=== PATIENT | female | born 1935 | race Caucasian/White ===

== ENCOUNTER → 2016-09-28 | Outpatient (CLI) | payer MEDICARE, OTHER ==
[2016-09-28 11:06] LABS: ABSOLUTE BASOPHILS # (AUTO) 0.1 10^3/uL (0.0-0.2); ABSOLUTE EOSINOPHILS # (AUTO) 0.7 10^3/uL (0.0-0.6); ABSOLUTE LYMPHOCYTES (AUTO) 2.1 10^3/uL (0.5-4.7); ABSOLUTE MONOCYTES (AUTO) 0.6 10^3/uL (0.1-1.4); ABSOLUTE NEUT (AUTO) 4.2 10^3/uL (1.7-8.2); EOSINOPHILS % (AUTO) 8.9 % (0-6); HEMATOCRIT 37.6 % (36.0-47.0); HEMOGLOBIN 12.8 g/dL (12.0-15.5); HGB HCT DIFFERENCE 0.8; LYMPHOCYTES % (AUTO) 27.1 % (13-45); MEAN CORPUSCULAR HEMOGLOBIN 31.3 pg (27.0-33.4); MEAN CORPUSCULAR HGB CONC 33.9 g/dL (32.0-36.0); MEAN CORPUSCULAR VOLUME 92 fl (80-97); MONOCYTES % (AUTO) 8.1 % (3-13); RED BLOOD COUNT 4.08 10^6/uL (3.72-5.28); RED CELL DISTRIBUTION WIDTH 14.9 % (11.5-14.0); SEGMENTED NEUTROPHILS % (AUTO) 54.9 % (42-78); WHITE BLOOD COUNT 7.6 10^3/uL (4.0-10.5)
[2016-09-28 11:26] LABS: ALANINE AMINOTRANSFERASE 31 U/L (9-52); ALKALINE PHOSPHATASE 56 U/L (38-126); ANION GAP 9 (5-19); ASPARTATE AMINO TRANSFERASE 28 U/L (14-36); BILIRUBIN,DIRECT 0.5 mg/dL (0.0-0.4); BILIRUBIN,TOTAL 0.8 mg/dL (0.2-1.3); BLOOD UREA NITROGEN 56 mg/dL (7-20); CALCIUM 9.8 mg/dL (8.4-10.2); CARBON DIOXIDE 36 mmol/L (22-30); CHLORIDE 95 mmol/L (98-107); CHOLESTEROL 173.18 mg/dL (0-200); CREATININE RESULT 2.46 mg/dL (0.52-1.25); Direct HDL 55 mg/dL (>40); GLUCOSE 118 mg/dL (75-110); SODIUM 140.2 mmol/L (137-145); TOTAL PROTEIN 6.9 g/dL (6.3-8.2); TRIGLYCERIDES 157 mg/dL (<150)
[2016-09-28 11:36] LABS: DIRECT LDL 69 mg/dL (<100)
[2016-09-28 11:41] LABS: VLDL CHOLESTEROL 31.4 mg/dL (10-31)
== END ==
LOC: OD 09:32
PROVIDERS: ATTEND Physician Assistant
DX: E11.22 Type 2 diabetes mellitus with diabetic chronic kidney disease (principal); I12.9 Hypertensive chronic kidney disease with stage 1 through stage 4 chronic kidney disease, or unspecified chronic kidney disease; N18.9 Chronic kidney disease, unspecified; E78.5 Hyperlipidemia, unspecified
CPT/HCPCS: 36415; 80053; 80061; 83036; 85025

== ENCOUNTER → 2016-12-29 | Outpatient (CLI) | payer MEDICARE, MEDICAID, OTHER ==
--- NOTE | 2016-12-29 16:56 | RADIOLOGY REPORT (SQ) ---
EXAM DESCRIPTION: MRI HEAD WITHOUT COMPLETED DATE/TIME: 12/29/2016 4:29 pm REASON FOR STUDY: HEADACHE,DIPLOPIA R51 HEADACHE H53.2 DIPLOPIA COMPARISON: None. TECHNIQUE: Multiplanar imaging includes non-contrasted T1, T2, FLAIR, and diffusion with ADC map seq uences. Images stored on PACS. LIMITATIONS: Motion. FINDINGS: ANATOMY: No anomalies. Normal vascular flow voids. Pituitary fossa normal. CSF SPACES: Atrophy induced prominence of ventricles and CSF spaces. CEREBRUM: High signal intensity lesions scattered throughout the white matter on FLAIR imaging with d istribution suggesting micro-vascular ischemic changes. No evidence of hemorrhage, mass, or extraaxi al fluid collection. POSTERIOR FOSSA: No signal alteration. No hemorrhage. No edema, masses or mass effect. Internal missy tory canals, cerebello-pontine angles, mastoids normal. DIFFUSION IMAGING: Negative for acute or sub-acute infarction. ORBITS: No masses. Globes normal. PARANASAL SINUSES: No fluid levels. Mucosa normal. OTHER: No other significant finding. IMPRESSION: Chronic ischemic changes. EVIDENCE OF ACUTE STROKE: NO. TECHNICAL DOCUMENTATION: JOB ID: [id number] [employer]- All Rights Reserved
== END ==
LOC: RAD 15:30
PROVIDERS: ATTEND Physician Assistant
DX: R51 Headache (principal); H53.2 Diplopia
CPT/HCPCS: 70551

== ENCOUNTER 2017-01-03 13:38 | Emergency (ER) | payer MEDICARE, MEDICAID, OTHER ==
[2017-01-03] MEDS ORDERED: NORMAL SALINE 1000 ML 1,000 ML IV ONE (14:01)
[2017-01-03] MEDS ORDERED: KETOROLAC TROMETHAMINE INJ/PF 30 MG/1 ML SDV IV ONE (14:01)
[2017-01-03] MEDS ORDERED: DIPHENHYDRAMINE HCL 50 MG/ML VIAL IV ONE (14:01)
[2017-01-03] MEDS ORDERED: PROCHLORPERAZINE EDISYLATE INJ 10 MG/2 ML VIAL IV ONE (14:01)
--- NOTE | 2017-01-03 14:02 | ER Document Report ---
ED Medical Screen (RME) - General Chief Complaint: Headache Stated Complaint: HEADACHE Time Seen by Provider: 01/03/17 14:01 Mode of Arrival: Wheelchair Information source: Patient, Relative Notes: 81-year-old female history of migraine headaches presents with complaints of a headache that has been on approximately for a few weeks. Patient had an MRI performed on results reviewed by myself notes no acute abnormality. Patient denies any fevers or chills admits to pain behind her right eye I have greeted and performed a rapid initial assessment of this patient. A comprehensive ED assessment and evaluation of the patient, analysis of test results and completion of the medical decision making process will be conducted by additional ED providers. PHYSICAL EXAMINATION: GENERAL: Well-appearing, well-nourished and in no acute distress. HEAD: Atraumatic, normocephalic. EYES: Pupils equal round extraocular movements intact, conjunctiva are normal. ENT: Nares patent NECK: Normal range of motion LUNGS: No respiratory distress Musculoskeletal: Normal range of motion NEUROLOGICAL: Normal speech, normal gait. PSYCH: Normal mood, normal affect. SKIN: Warm, Dry, normal turgor, no rashes or lesions noted. TRAVEL OUTSIDE OF THE [place] IN LAST 30 DAYS: No - Related Data Allergies/Adverse Reactions: codeine [Codeine] Allergy (Verified 01/03/17 13:45) Past Medical History - Social History Chew tobacco use (# tins/day): No Frequency of alcohol use: None Drug Abuse: None - Past Medical History Cardiac Medical History: Reports: Hx Congestive Heart Failure, Hx Coronary Artery Disease, Hx Heart Attack, Hx Hypercholesterolemia, Hx Hypertension Neurological Medical History: Reports: Hx Cerebrovascular Accident Endocrine Medical History: Reports: Hx Diabetes Mellitus Type 2 Renal/ Medical History: Denies: Hx Peritoneal Dialysis GI Medical History: Reports: Hx Gastroesophageal Reflux Disease Musculoskeltal Medical History: Reports Hx Gout Psychiatric Medical History: Denies: Hx Depression Past Surgical History: Reports: Hx Appendectomy, Hx Hysterectomy, Other - Shoulder replacement, bladder surgery
--- NOTE | 2017-01-03 15:42 | ER Document Report ---
ED Eye Complaint - General Mode of Arrival: Wheelchair Information source: Patient TRAVEL OUTSIDE OF THE [place] IN LAST 30 DAYS: No - HPI Onset: Just prior to arrival Eye location: Right Injury: No <MONES BIRMINGHAM - Last Filed: 01/03/17 19:56> <PAYALROBE JEAN - Last Filed: 01/03/17 21:54> - General Chief Complaint: Headache Stated Complaint: HEADACHE Time Seen by Provider: 01/03/17 14:01 Notes: Patient is an 81-year-old female who presents to the emergency department today with complaints of right eye pain with some associated headache. Patient states she has had this right eye pain with associated double vision for approximately 1 week. Patient states her vision is normal in her left eye. Patient had an outpatient CT and MRI done within the last week, both of which were normal. (MONSE BIRMINGHAM) - Related Data Allergies/Adverse Reactions: codeine [Codeine] Allergy (Verified 01/03/17 13:45) Past Medical History - General Information source: Patient, Relative - Social History Smoking Status: Never Smoker Cigarette use (# per day): No Chew tobacco use (# tins/day): No Frequency of alcohol use: None Drug Abuse: None Lives with: Family Family History: Reviewed & Not Pertinent Patient has suicidal ideation: No Patient has homicidal ideation: No - Past Medical History Cardiac Medical History: Reports: Hx Congestive Heart Failure, Hx Coronary Artery Disease, Hx Heart Attack, Hx Hypercholesterolemia, Hx Hypertension Neurological Medical History: Reports: Hx Cerebrovascular Accident Endocrine Medical History: Reports: Hx Diabetes Mellitus Type 2 GI Medical History: Reports: Hx Gastroesophageal Reflux Disease Musculoskeltal Medical History: Reports Hx Gout Past Surgical History: Reports: Hx Appendectomy, Hx Hysterectomy, Other - Shoulder replacement, bladder surgery <MONSE BIRMINGHAM - Last Filed: 01/03/17 19:56> Review of Systems - Review of Systems Constitutional: No symptoms reported EENT: See HPI, Eye pain - right Cardiovascular: No symptoms reported Respiratory: No symptoms reported Gastrointestinal: No symptoms reported Genitourinary: No symptoms reported Female Genitourinary: No symptoms reported Musculoskeletal: No symptoms reported Skin: No symptoms reported Hematologic/Lymphatic: No symptoms reported Neurological/Psychological: See HPI, Headaches -: Yes All other systems reviewed and negative <MONSE BIRMINGHAM - Last Filed: 01/03/17 19:56> Physical Exam - HEENT Right intraocular pressure: 14 Left intraocular pressure: 16 <MONSE BIRMINGHAM - Last Filed: 01/03/17 19:56> <ROBE MOE - Last Filed: 01/03/17 21:54> - Vital signs Vitals: Temp Pulse BP Pulse Ox 97.5 F 50 L 166/72 H 94 01/03/17 13:44 01/03/17 13:44 01/03/17 13:44 01/03/17 13:44 - Notes Notes: Physical Exam: General: Alert, appears uncomfortable. HEENT: Normocephalic. Atraumatic. PERRL. Extraocular movements intact. Oropharynx clear. Tenderness with palpation of the right eyeball through the eyelid. No acute findings on funduscopic exam Neck: Supple. Non-tender. Respiratory: No respiratory distress. Clear and equal breath sounds bilaterally. Cardiovascular: Regular rate and rhythm. Abdominal: Normal Inspection. Non-tender. No distension. Normal Bowel Sounds. Back: Non-tender. No deformity or step off. Extremities: Moves all four extremities. Upper extremities: Normal inspection. Normal ROM. Lower extremities: Normal inspection. No edema. Normal ROM. Neurological: Normal cognition. AAOx4. Normal speech. Psychological: Normal affect. Normal Mood. Skin: Warm. Dry. Normal color. (MONSE BIRMINGHAM) Course - Laboratory Result Diagrams: 01/03/17 14:15 01/03/17 15:31 - Consults Ophthalmology Time consulted: 15:47 <MONSE BIRMINGHAM - Last Filed: 01/03/17 19:56> - Laboratory Result Diagrams: 01/03/17 14:15 01/03/17 15:31 - Diagnostic Test Radiology reviewed: Reports reviewed <ROBE MOE - Last Filed: 01/03/17 21:54> - Re-evaluation Re-evalutation: 01/03/17 Patient with no acute findings on blood work. Patient with normal outpatient MRI yesterday. Patient is complaining more of eye pain and blurred vision in her right eye than of headache. I have had a difficult time doing a funduscopic and intraocular pressures the patient has a difficult time cooperating with both of these. However, there does not appear to be an acute severe elevation of her intraocular pressure or any acute findings on funduscopic exam. The patient was discussed with . Javier will see her in the morning at 8 AM. This is been discussed with the patient and her family. Patient has no further headache at this time after being given medications to treat this. She will be discharged home and is to return if she has any worsening or concerning symptoms. Patient and family understand and agree with this plan. Stable for discharge home. (ROBE MOE) - Vital Signs Vital signs: Temp Pulse Resp BP Pulse Ox 97.2 F 50 L 16 147/60 H 98 01/03/17 18:31 01/03/17 13:44 01/03/17 18:31 01/03/17 18:31 01/03/17 18:31 - Laboratory Laboratory results interpreted by me: 01/03/17 01/03/17 14:15 15:31 Hct 35.8 L Sodium 135.1 L Chloride 91 L Carbon Dioxide 33 H BUN 53 H Creatinine 2.38 H Est GFR ( Amer) 24 L Est GFR (Non-Af Amer) 20 L Glucose 111 H Discharge <MONSE BIRMINGHAM - Last Filed: 01/03/17 19:56> <ROBE MOE - Last Filed: 01/03/17 21:54> - Discharge Clinical Impression: Pain, eye, right Headache Qualifiers: Headache type: tension-type Headache chronicity pattern: acute headache Intractability: not intractable Qualified Code(s): G44.209 - Tension-type headache, unspecified, not intractable Condition: Stable Disposition: HOME, SELF-CARE Instructions: Headache ([facility]) Additional Instructions: Please follow-up with the roastmaster tomorrow regarding your eye pain and vision changes. Please return if you have any further concerns. Referrals: VICENTE SCHULZ PA [Primary Care Provider] - Follow up as needed ALLIE CEDEÑO MD [ACTIVE STAFF] - 01/04/17 8:00 am Scribe Attestation: 01/03/17 21:54 I personally performed the services described in the documentation, reviewed and edited the documentation which was dictated to the scribe in my presence, and it accurately records my words and actions. (ROBE MOE) Scribe Documentation - Scribe Written by Scribe:: Helen Schmitz, 01/03/2017 1556 acting as scribe for :: Butch <MONSE BIRMINGHAM - Last Filed: 01/03/17 19:56>
[2017-01-03] MEDS ORDERED: TETRACAINE HCL 0.5% OPH SOLN 2 ML OD ONE (15:46)
[2017-01-03 15:56] LABS: ALANINE AMINOTRANSFERASE 32 U/L (9-52); ALKALINE PHOSPHATASE 64 U/L (38-126); ANION GAP 11 (5-19); ASPARTATE AMINO TRANSFERASE 24 U/L (14-36); BILIRUBIN,DIRECT 0.4 mg/dL (0.0-0.4); BILIRUBIN,TOTAL 0.6 mg/dL (0.2-1.3); BLOOD UREA NITROGEN 53 mg/dL (7-20); CALCIUM 9.7 mg/dL (8.4-10.2); CARBON DIOXIDE 33 mmol/L (22-30); CHLORIDE 91 mmol/L (98-107); CREATININE RESULT 2.38 mg/dL (0.52-1.25); GLUCOSE 111 mg/dL (75-110); POTASSIUM 3.6 mmol/L (3.6-5.0); SODIUM 135.1 mmol/L (137-145)
[2017-01-03 16:45] LABS: ABSOLUTE BASOPHILS # (AUTO) 0.1 10^3/uL (0.0-0.2); ABSOLUTE EOSINOPHILS # (AUTO) 0.4 10^3/uL (0.0-0.6); ABSOLUTE LYMPHOCYTES (AUTO) 1.5 10^3/uL (0.5-4.7); ABSOLUTE MONOCYTES (AUTO) 0.7 10^3/uL (0.1-1.4); ABSOLUTE NEUT (AUTO) 4.2 10^3/uL (1.7-8.2); BASOPHILS % (AUTO) 0.9 % (0-2); EOSINOPHILS % (AUTO) 5.3 % (0-6); HEMATOCRIT 35.8 % (36.0-47.0); HEMOGLOBIN 12.3 g/dL (12.0-15.5); HGB HCT DIFFERENCE 1.1; LYMPHOCYTES % (AUTO) 21.3 % (13-45); MEAN CORPUSCULAR HEMOGLOBIN 31.7 pg (27.0-33.4); MEAN CORPUSCULAR HGB CONC 34.3 g/dL (32.0-36.0); MEAN CORPUSCULAR VOLUME 93 fl (80-97); MONOCYTES % (AUTO) 10.4 % (3-13); RED BLOOD COUNT 3.87 10^6/uL (3.72-5.28); SEGMENTED NEUTROPHILS % (AUTO) 62.1 % (42-78); WHITE BLOOD COUNT 6.8 10^3/uL (4.0-10.5)
[2017-01-03] MEDS ORDERED: ONDANSETRON ODT 4 MG TAB (6 TAB/DSPK) PO PRN (17:52)
[2017-01-03 18:47] VITALS: BP 147/60
== END 2017-01-03 18:47 | disposition home or self-care (01) ==
LOC: ER 13:38
DX: G44.209 Tension-type headache, unspecified, not intractable (principal); H57.11 Ocular pain, right eye; E11.9 Type 2 diabetes mellitus without complications; I50.9 Heart failure, unspecified; I25.10 Atherosclerotic heart disease of native coronary artery without angina pectoris; E78.00 Pure hypercholesterolemia, unspecified; I11.0 Hypertensive heart disease with heart failure; Z86.73 Personal history of transient ischemic attack (TIA), and cerebral infarction without residual deficits; I25.2 Old myocardial infarction; Z90.710 Acquired absence of both cervix and uterus; Z88.6 Allergy status to analgesic agent
CPT/HCPCS: 99284; 96374; 96375; 36415; 84443; 85025; 80053; J1200; J1885; J0780; J7030; A9270

== ENCOUNTER 2017-01-11 18:47 | Emergency (ER) | payer MEDICARE, MEDICAID, OTHER ==
--- NOTE | 2017-01-11 22:44 | RADIOLOGY REPORT (SQ) ---
EXAM DESCRIPTION: CHEST SINGLE VIEW COMPLETED DATE/TIME: 01/11/2017 10:19 pm REASON FOR STUDY: CP COMPARISON: 08/12/2014 EXAM PARAMETERS: NUMBER OF VIEWS: One view. TECHNIQUE: Single frontal radiographic view of the chest acquired. RADIATION DOSE: NA LIMITATIONS: None. FINDINGS: LUNGS AND PLEURA: No consolidation, masses or pneumothorax. No pleural effusion. MEDIASTINUM AND HILAR STRUCTURES: Stable. HEART AND VASCULAR STRUCTURES: Stable. BONES: No acute findings. HARDWARE: None in the chest. OTHER: No other significant finding. IMPRESSION: NO ACUTE RADIOGRAPHIC FINDING IN THE CHEST. TECHNICAL DOCUMENTATION: JOB ID: [id number]
--- NOTE | 2017-01-11 22:52 | RADIOLOGY REPORT (SQ) ---
EXAM DESCRIPTION: CT HEAD WITHOUT COMPLETED DATE/TIME: 01/11/2017 10:21 pm REASON FOR STUDY: HEADACHE/BLOOD THINNERS COMPARISON: MRI 12/29/2016 TECHNIQUE: Axial images acquired through the brain without intravenous contrast. Images reviewed wi th bone, brain and subdural windows. Images stored on PACS. All CT scanners at this facility use dose modulation, iterative reconstruction, and/or weight based d osing when appropriate to reduce radiation dose to as low as reasonably achievable (ALARA). [facility]: Dose Right [facility]: CareDose [facility]: Dose Right [facility]: Teradose 4D [facility]: [employer] RADIATION DOSE: Up-to-date CT equipment and radiation dose reduction techniques were employed. CTDIv ol: 64.6 mGy. DLP: 1163 mGy-cm.mGy. LIMITATIONS: None. FINDINGS: VENTRICLES: Prominent. CEREBRUM: No masses. No hemorrhage. No midline shift. Areas of low density in the white matter mos t likely due to chronic micro-vascular ischemic change. No evidence for acute infarction. CEREBELLUM: No masses. No hemorrhage. No alteration of density. No evidence for acute infarction. EXTRAAXIAL SPACES: Age-related involutional change. No fluid collections. No masses. ORBITS AND GLOBE: No intra- or extraconal masses. Normal contour of globe without masses. CALVARIUM: No fracture. PARANASAL SINUSES: No fluid or mucosal thickening. SOFT TISSUES: No mass or hematoma. OTHER: No other significant finding. IMPRESSION: No intracranial hemorrhage. TECHNICAL DOCUMENTATION: JOB ID: [id number] Quality ID # [id number]: Final reports with documentation of one or more dose reduction techniques (e.g., Au tomated exposure control, adjustment of the mA and/or kV according to patient size, use of iterative reconstruction technique) 2010 [employer]- All Rights Reserved
[2017-01-12] MEDS ORDERED: KETOROLAC TROMETHAMINE INJ/PF 30 MG/1 ML SDV IV ONE (00:53)
[2017-01-12] MEDS ORDERED: PROCHLORPERAZINE EDISYLATE INJ 10 MG/2 ML VIAL IV ONE (00:53)
[2017-01-12] MEDS ORDERED: DIPHENHYDRAMINE HCL 50 MG/ML VIAL IV ONE (00:53)
--- NOTE | 2017-01-12 00:56 | ER Document Report ---
ED General - General Chief Complaint: Headache >24 hrs old Stated Complaint: SHORTNESS OF BREATH Time Seen by Provider: 01/12/17 00:30 Mode of Arrival: Ambulatory Information source: Patient, Relative TRAVEL OUTSIDE OF THE [place] IN LAST 30 DAYS: No - HPI Patient complains to provider of: Headache, shortness of breath Onset/Duration: Persistent Quality of pain: Achy, Pressure Severity: Moderate Pain Level: 3 Associated symptoms: Shortness of breath Exacerbated by: Denies Relieved by: Denies Similar symptoms previously: Yes Recently seen / treated by doctor: Yes Notes: Patient is an 81-year-old female presenting to the emergency room complaining of headache that has been going on for 3 weeks, it is mainly on the right side of the face and she has double vision in the right eye as well, she has been seen in this emergency room, by her primary care provider and by an horticulture instructor for this complaint, has had numerous tests and evaluations but has not been placed on any new medications for symptom control, she also reports being seen by a primary care provider earlier today, having a chest x- ray performed and was told that she has a lot of fluid in her lungs or around her heart and was told to go to the emergency room immediately, she does complaining some worsening shortness of breath over the past few weeks, she has a history of congestive heart failure, denies any lower extremity edema, no chest pain, she does have a nonproductive cough, denies fever - Related Data Allergies/Adverse Reactions: codeine [Codeine] Allergy (Verified 01/11/17 18:55) Past Medical History - General Information source: Patient, Relative - Social History Smoking Status: Never Smoker Frequency of alcohol use: None Drug Abuse: None Family History: Reviewed & Not Pertinent Patient has suicidal ideation: No Patient has homicidal ideation: No - Past Medical History Cardiac Medical History: Reports: Hx Congestive Heart Failure, Hx Coronary Artery Disease, Hx Heart Attack, Hx Hypercholesterolemia, Hx Hypertension Neurological Medical History: Reports: Hx Cerebrovascular Accident Endocrine Medical History: Reports: Hx Diabetes Mellitus Type 2 Renal/ Medical History: Denies: Hx Peritoneal Dialysis GI Medical History: Reports: Hx Gastroesophageal Reflux Disease Musculoskeltal Medical History: Reports Hx Gout Psychiatric Medical History: Denies: Hx Depression Past Surgical History: Reports: Hx Appendectomy, Hx Hysterectomy, Other - Shoulder replacement, bladder surgery Review of Systems - Review of Systems Constitutional: No symptoms reported EENT: No symptoms reported Cardiovascular: Dyspnea Respiratory: Short of breath Gastrointestinal: No symptoms reported Genitourinary: No symptoms reported Female Genitourinary: No symptoms reported Musculoskeletal: No symptoms reported Skin: No symptoms reported Hematologic/Lymphatic: No symptoms reported Neurological/Psychological: Headaches -: Yes All other systems reviewed and negative Physical Exam - Vital signs Vitals: Temp Pulse Resp BP Pulse Ox 97.7 F 70 20 133/72 H 96 01/11/17 18:57 01/11/17 18:57 01/11/17 18:57 01/11/17 18:57 01/11/17 18:57 Interpretation: Normal - General General appearance: Appears well, Alert - HEENT Head: Normocephalic, Atraumatic Eyes: Normal Pupils: PERRL - Respiratory Respiratory status: No respiratory distress Chest status: Nontender Breath sounds: Normal Chest palpation: Normal - Cardiovascular Rhythm: Regular Heart sounds: Normal auscultation Murmur: No - Abdominal Inspection: Normal Distension: No distension Bowel sounds: Normal Tenderness: Nontender Organomegaly: No organomegaly - Back Back: Normal, Nontender - Extremities General upper extremity: Normal inspection, Nontender, Normal color, Normal ROM , Normal temperature General lower extremity: Normal inspection, Nontender, Normal color, Normal ROM , Normal temperature, Normal weight bearing. No: Pastora's sign - Neurological Neuro grossly intact: Yes Cognition: Normal Orientation: AAOx4 [place] Coma Scale Eye Opening: Spontaneous [place] Coma Scale Verbal: Oriented [place] Coma Scale Motor: Obeys Commands [place] Coma Scale Total: 15 Speech: Normal Motor strength normal: LUE, RUE, LLE, RLE Sensory: Normal - Psychological Associated symptoms: Normal affect, Normal mood - Skin Skin Temperature: Warm Skin Moisture: Dry Skin Color: Normal Course - Re-evaluation Re-evalutation: 01/12/17 03:11 Patient sleeping comfortably, easily aroused, reports that her headache is resolved and she is feeling much better, lab and imaging findings were discussed with patient and family members at bedside which are fairly unremarkable except for continued renal insufficiency and mildly elevated BNP, patient is already on Bumex for this, she was advised to continue this medication, follow-up with her primary care provider and specialists as scheduled or return if symptoms worsen, patient and family members acknowledge understanding and agreement with this plan - Vital Signs Vital signs: Temp Pulse Resp BP Pulse Ox 97.7 F 70 20 133/72 H 96 01/11/17 18:57 01/11/17 18:57 01/11/17 18:57 01/11/17 18:57 01/11/17 18:57 - Laboratory Result Diagrams: 01/12/17 01:00 01/12/17 01:00 Laboratory results interpreted by me: 01/12/17 01/12/17 01:00 01:00 Chloride 94 L Carbon Dioxide 32 H BUN 43 H Creatinine 2.36 H Est GFR ( Amer) 24 L Est GFR (Non-Af Amer) 20 L Glucose 118 H Calcium 11.0 H Direct Bilirubin 0.5 H NT-Pro-B Natriuret Pep 3570 H - Diagnostic Test Radiology reviewed: Image reviewed, Reports reviewed - EKG Interpretation by Me EKG shows normal: Sinus rhythm Rate: Bradycardia When compared to previous EKG there are: No significant change Discharge - Discharge Clinical Impression: Congestive heart failure (CHF) Qualifiers: Congestive heart failure type: unspecified congestive heart failure type Congestive heart failure chronicity: chronic Qualified Code(s): I50.9 - Heart failure, unspecified Headache Qualifiers: Headache type: unspecified Headache chronicity pattern: chronic headache Intractability: not intractable Qualified Code(s): R51 - Headache Condition: Stable Disposition: HOME, SELF-CARE Instructions: Headache ([facility]), Congestive Heart Failure ([facility]) Additional Instructions: Follow up with your primary care provider and specialist in one to 2 days. Return to the emergency room immediately if symptoms worsen or any additional concerns. Prescriptions: Diphenhydramine HCl [Benadryl 25 Mg Capsule] 25 mg PO Q6 #30 capsule Prochlorperazine Maleate [Compazine 10 mg Tablet] 10 mg PO ASDIR PRN #20 tablet PRN Reason: Tramadol HCl/Acetaminophen [Ultracet 37.5 mg/325 mg Tablet] 1 each PO Q6 #20 tablet Referrals: VICENTE SCHULZ PA [Primary Care Provider] - Follow up as needed
[2017-01-12 01:13] LABS: ABSOLUTE BASOPHILS # (AUTO) 0.1 10^3/uL (0.0-0.2); ABSOLUTE EOSINOPHILS # (AUTO) 0.4 10^3/uL (0.0-0.6); ABSOLUTE LYMPHOCYTES (AUTO) 1.6 10^3/uL (0.5-4.7); ABSOLUTE MONOCYTES (AUTO) 0.9 10^3/uL (0.1-1.4); ABSOLUTE NEUT (AUTO) 6.6 10^3/uL (1.7-8.2); EOSINOPHILS % (AUTO) 3.8 % (0-6); HEMATOCRIT 40.8 % (36.0-47.0); HEMOGLOBIN 13.8 g/dL (12.0-15.5); HGB HCT DIFFERENCE 0.6; LYMPHOCYTES % (AUTO) 17.2 % (13-45); MEAN CORPUSCULAR HEMOGLOBIN 31.7 pg (27.0-33.4); MEAN CORPUSCULAR HGB CONC 33.8 g/dL (32.0-36.0); MEAN CORPUSCULAR VOLUME 94 fl (80-97); MONOCYTES % (AUTO) 9.4 % (3-13); RED BLOOD COUNT 4.36 10^6/uL (3.72-5.28); RED CELL DISTRIBUTION WIDTH 13.8 % (11.5-14.0); SEGMENTED NEUTROPHILS % (AUTO) 68.6 % (42-78); WHITE BLOOD COUNT 9.6 10^3/uL (4.0-10.5)
[2017-01-12 01:28] LABS: PROTHROMBIN TIME 12.7 SEC (11.4-15.4)
[2017-01-12 02:06] LABS: CREATINE KINASE MB 0.53 ng/mL (<4.55)
[2017-01-12 02:07] LABS: ALANINE AMINOTRANSFERASE 28 U/L (9-52); ALBUMIN 4.5 g/dL (3.5-5.0); ALKALINE PHOSPHATASE 89 U/L (38-126); ANION GAP 12 (5-19); ASPARTATE AMINO TRANSFERASE 23 U/L (14-36); BILIRUBIN,DIRECT 0.5 mg/dL (0.0-0.4); BILIRUBIN,TOTAL 0.7 mg/dL (0.2-1.3); BLOOD UREA NITROGEN 43 mg/dL (7-20); CARBON DIOXIDE 32 mmol/L (22-30); CHLORIDE 94 mmol/L (98-107); CREATINE KINASE 59 U/L (30-135); CREATININE RESULT 2.36 mg/dL (0.52-1.25); GLUCOSE 118 mg/dL (75-110); POTASSIUM 4.5 mmol/L (3.6-5.0); SODIUM 137.5 mmol/L (137-145); TOTAL PROTEIN 7.6 g/dL (6.3-8.2)
[2017-01-12 02:08] LABS: TROPONIN I < 0.012 ng/mL
[2017-01-12 03:31] VITALS: BP 118/88
--- NOTE | 2017-01-12 21:34 | EKG REPORT ---
SEVERITY:- OTHERWISE NORMAL ECG - SINUS RHYTHM LEFT AXIS DEVIATION : Confirmed by: Allen Foss 12-Jan-2017 21:33:21
== END 2017-01-12 03:29 | disposition home or self-care (01) ==
LOC: ER 18:47
DX: R51 Headache (principal); H53.2 Diplopia; I11.0 Hypertensive heart disease with heart failure; I50.9 Heart failure, unspecified; N28.9 Disorder of kidney and ureter, unspecified; Z79.899 Other long term (current) drug therapy; R00.1 Bradycardia, unspecified; I25.10 Atherosclerotic heart disease of native coronary artery without angina pectoris; R06.02 Shortness of breath; R05 Cough; E11.9 Type 2 diabetes mellitus without complications; Z88.5 Allergy status to narcotic agent; Z86.73 Personal history of transient ischemic attack (TIA), and cerebral infarction without residual deficits
CPT/HCPCS: 93005; 99284; 96374; 96375; 36415; 82553; 82550; 85025; 85610; 80053; 84484; 83880; 71010; 70450; 93010; J1200; J1885; J0780

== ENCOUNTER 2017-01-16 16:00 | Emergency (ER) | payer MEDICARE, MEDICAID, OTHER ==
--- NOTE | 2017-01-16 16:29 | ER Document Report ---
ED Medical Screen (RME) - General Chief Complaint: S/S of Possible Stroke Stated Complaint: POSSIBLE STROKE Time Seen by Provider: 01/16/17 16:27 Notes: Patient presents with 2 weeks of progressive right facial symptoms. She started off with bad right-sided headaches over the right temporal artery that have increased. She first noted vision loss and did see an ent consultant but family is unsure of the diagnosis that was given. Patient was also seen in the emergency department and had CT scan and has had an MRI both of these showed no evidence of any acute pathology. Patient began to have weakness of the right eyelid next and today patient now has drooping of the right side of the mouth and right lower face. Patient apparently woke up this morning with the right lower facial weakness. TRAVEL OUTSIDE OF THE [place] IN LAST 30 DAYS: No - Related Data Allergies/Adverse Reactions: codeine [Codeine] Allergy (Verified 01/16/17 16:05) Past Medical History - Past Medical History Cardiac Medical History: Reports: Hx Congestive Heart Failure, Hx Coronary Artery Disease, Hx Heart Attack, Hx Hypercholesterolemia, Hx Hypertension Neurological Medical History: Reports: Hx Cerebrovascular Accident Endocrine Medical History: Reports: Hx Diabetes Mellitus Type 2 Renal/ Medical History: Denies: Hx Peritoneal Dialysis GI Medical History: Reports: Hx Gastroesophageal Reflux Disease Musculoskeltal Medical History: Reports Hx Gout Psychiatric Medical History: Denies: Hx Depression Past Surgical History: Reports: Hx Appendectomy, Hx Hysterectomy, Other - Shoulder replacement, bladder surgery
--- NOTE | 2017-01-16 16:58 | RADIOLOGY REPORT (SQ) ---
EXAM DESCRIPTION: CT HEAD WITHOUT COMPLETED DATE/TIME: 01/16/2017 4:49 pm REASON FOR STUDY: right facial weakness COMPARISON: None. TECHNIQUE: Axial images acquired through the brain without intravenous contrast. Images reviewed wi th bone, brain and subdural windows. Images stored on PACS. All CT scanners at this facility use dose modulation, iterative reconstruction, and/or weight based d osing when appropriate to reduce radiation dose to as low as reasonably achievable (ALARA). [facility]: Dose Right [facility]: CareDose [facility]: Dose Right [facility]: Teradose 4D [facility]: [employer] RADIATION DOSE: Up-to-date CT equipment and radiation dose reduction techniques were employed. CTDIv ol: 64.6 mGy. DLP: 1163 mGy-cm.mGy. LIMITATIONS: None. FINDINGS: VENTRICLES: Prominent. CEREBRUM: No masses. No hemorrhage. No midline shift. Areas of low density in the white matter mos t likely due to chronic micro-vascular ischemic change. No evidence for acute infarction. CEREBELLUM: No masses. No hemorrhage. No alteration of density. No evidence for acute infarction. EXTRAAXIAL SPACES: Age-related involutional change. No fluid collections. No masses. ORBITS AND GLOBE: No intra- or extraconal masses. Normal contour of globe without masses. CALVARIUM: No fracture. PARANASAL SINUSES: No fluid or mucosal thickening. SOFT TISSUES: No mass or hematoma. OTHER: No other significant finding. IMPRESSION: CHRONIC CHANGES OF ATROPHY AND MICROVASCULAR ISCHEMIA. NO ACUTE PROCESS. TECHNICAL DOCUMENTATION: JOB ID: [id number] Quality ID # [id number]: Final reports with documentation of one or more dose reduction techniques (e.g., Au tomated exposure control, adjustment of the mA and/or kV according to patient size, use of iterative reconstruction technique) 2010 [email or web address]- All Rights Reserved
[2017-01-16 17:17] LABS: ABSOLUTE BASOPHILS # (AUTO) 0.1 10^3/uL (0.0-0.2); ABSOLUTE EOSINOPHILS # (AUTO) 0.3 10^3/uL (0.0-0.6); ABSOLUTE LYMPHOCYTES (AUTO) 1.1 10^3/uL (0.5-4.7); ABSOLUTE MONOCYTES (AUTO) 0.8 10^3/uL (0.1-1.4); ABSOLUTE NEUT (AUTO) 5.6 10^3/uL (1.7-8.2); BASOPHILS % (AUTO) 0.9 % (0-2); EOSINOPHILS % (AUTO) 4.2 % (0-6); HEMATOCRIT 37.9 % (36.0-47.0); HEMOGLOBIN 12.9 g/dL (12.0-15.5); HGB HCT DIFFERENCE 0.8; MEAN CORPUSCULAR HGB CONC 34.1 g/dL (32.0-36.0); MEAN CORPUSCULAR VOLUME 94 fl (80-97); MONOCYTES % (AUTO) 10.5 % (3-13); RED BLOOD COUNT 4.04 10^6/uL (3.72-5.28); RED CELL DISTRIBUTION WIDTH 13.7 % (11.5-14.0); SEGMENTED NEUTROPHILS % (AUTO) 70.4 % (42-78); WHITE BLOOD COUNT 7.9 10^3/uL (4.0-10.5)
--- NOTE | 2017-01-16 17:22 | ER Document Report ---
HPI - HPI Patient complains to provider of: right facial droop Onset: Other Onset/Duration: Waxing and waning Quality of pain: Burning Severity: Mild Pain Level: Denies Exacerbated by: Denies Relieved by: Denies Similar symptoms previously: Yes Recently seen / treated by doctor: Yes Notes: Patient is a 81-year-old female who presents today for continuing right facial changes, right facial pain, speech changes. Patient has had these symptoms intermittently for the last several weeks. Patient has been seen by this facility as well as a primary care provider. Patient has had a negative head CT and negative brain MRI done last couple weeks. Today, patient's family believes the patient's symptoms have worsened. No focal neurologic weakness. No syncope. No chest pain or shortness of breath. Primarily the issues are right facial droop with right facial pain and slurred speech. - DERM Skin Color: Normal Past Medical History - General Information source: Patient, Relative - Social History Smoking Status: Never Smoker Family History: Reviewed & Not Pertinent - Past Medical History Cardiac Medical History: Reports: Hx Congestive Heart Failure, Hx Coronary Artery Disease, Hx Heart Attack, Hx Hypercholesterolemia, Hx Hypertension Neurological Medical History: Reports: Hx Cerebrovascular Accident Endocrine Medical History: Reports: Hx Diabetes Mellitus Type 2 Renal/ Medical History: Denies: Hx Peritoneal Dialysis GI Medical History: Reports: Hx Gastroesophageal Reflux Disease Musculoskeltal Medical History: Reports Hx Gout Psychiatric Medical History: Denies: Hx Depression Past Surgical History: Reports: Hx Appendectomy, Hx Hysterectomy, Other - Shoulder replacement, bladder surgery Vertical Provider Document - CONSTITUTIONAL Agree With Documented VS: Yes Exam Limitations: No Limitations General Appearance: WD/WN, No Apparent Distress - INFECTION CONTROL TRAVEL OUTSIDE OF THE [place] 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 01/16/17 17:42 Symptoms are most consistent with Chaudhry's palsy. Will give dose of acyclovir and prednisone here. Results of been discussed with patient and family bedside. Patient has a neurology appointment already scheduled for January 20. - Laboratory Result Diagrams: 01/16/17 17:05 01/16/17 17:05 - Diagnostic Test Radiology reviewed: Reports reviewed Radiology results interpreted by me: 01/16/17 17:[address] read is no acute changes per radiologist Discharge - Discharge Clinical Impression: Chaudhry's palsy Condition: Good Disposition: HOME, SELF-CARE Instructions: Chaudhry's Palsy ([facility]) Additional Instructions: Follow-up with your scheduled neurology appointment on January 20, follow-up with your primary care provider, return to the emergency department if worse or for any other problems. Prescriptions: RX: Acyclovir 800 mg PO Q4H #35 tab RX: Prednisone 40 mg PO DAILY #10 tablet Referrals: VICENTE SCHULZ PA [Primary Care Provider] - Follow up as needed
[2017-01-16 17:32] LABS: ALANINE AMINOTRANSFERASE 25 U/L (9-52); ALBUMIN 4.1 g/dL (3.5-5.0); ALKALINE PHOSPHATASE 71 U/L (38-126); ANION GAP 11 (5-19); ASPARTATE AMINO TRANSFERASE 19 U/L (14-36); BILIRUBIN,DIRECT 0.5 mg/dL (0.0-0.4); BILIRUBIN,TOTAL 0.7 mg/dL (0.2-1.3); BLOOD UREA NITROGEN 44 mg/dL (7-20); CALCIUM 10.5 mg/dL (8.4-10.2); CARBON DIOXIDE 29 mmol/L (22-30); CHLORIDE 98 mmol/L (98-107); CREATININE RESULT 1.96 mg/dL (0.52-1.25); GLUCOSE 110 mg/dL (75-110); SODIUM 138.2 mmol/L (137-145)
[2017-01-16] MEDS ORDERED: ACYCLOVIR 800 MG TABLET PO ONE (17:38)
[2017-01-16] MEDS ORDERED: PREDNISONE 20 MG TABLET PO ONE (17:39)
[2017-01-16 18:25] VITALS: BP 183/92
--- NOTE | 2017-01-16 23:22 | EKG REPORT ---
SEVERITY:- OTHERWISE NORMAL ECG - SINUS RHYTHM BORDERLINE LEFT AXIS DEVIATION : Confirmed by: Allen Foss 16-Jan-2017 23:21:55
== END 2017-01-16 18:37 | disposition home or self-care (01) ==
LOC: ER 16:00
DX: G51.0 Bell's palsy (principal); I10 Essential (primary) hypertension; R47.81 Slurred speech; R51 Headache; I25.10 Atherosclerotic heart disease of native coronary artery without angina pectoris; I25.2 Old myocardial infarction; E11.9 Type 2 diabetes mellitus without complications; Z86.73 Personal history of transient ischemic attack (TIA), and cerebral infarction without residual deficits
CPT/HCPCS: 93005; 99285; 36415; 85025; 80053; 70450; 93010; A9270 ×2; J3490; J7512

== ENCOUNTER → 2017-01-24 | Outpatient (CLI) | payer MEDICARE, OTHER ==
[2017-01-24 14:44] LABS: ABSOLUTE LYMPHOCYTES (AUTO) 0.7 10^3/uL (0.5-4.7); ABSOLUTE MONOCYTES (AUTO) 0.7 10^3/uL (0.1-1.4); ABSOLUTE NEUT (AUTO) 9.6 10^3/uL (1.7-8.2); HEMATOCRIT 40.5 % (36.0-47.0); HEMOGLOBIN 13.7 g/dL (12.0-15.5); HGB HCT DIFFERENCE 0.6; LYMPHOCYTES % (AUTO) 6.4 % (13-45); MEAN CORPUSCULAR HEMOGLOBIN 31.7 pg (27.0-33.4); MEAN CORPUSCULAR HGB CONC 33.8 g/dL (32.0-36.0); MEAN CORPUSCULAR VOLUME 94 fl (80-97); RED BLOOD COUNT 4.32 10^6/uL (3.72-5.28); SEGMENTED NEUTROPHILS % (AUTO) 87.6 % (42-78); WHITE BLOOD COUNT 10.9 10^3/uL (4.0-10.5)
[2017-01-24 14:50] LABS: APPEARANCE,URINE CLEAR; BILIRUBIN,URINE NEGATIVE (NEGATIVE); GLUCOSE, URINE NEGATIVE (NEGATIVE); KETONES,URINE NEGATIVE (NEGATIVE); LEUKOCYTE ESTERASE,URINE NEGATIVE (NEGATIVE); NITRITE,URINE NEGATIVE (NEGATIVE); PROTEIN,URINE NEGATIVE (NEGATIVE); URINE SPECIFIC GRAVITY 1.009; UROBILINOGEN,URINE NEGATIVE mg/dL (<2.0)
[2017-01-24 14:57] LABS: ALBUMIN 4.2 g/dL (3.5-5.0); ANION GAP 13 (5-19); BLOOD UREA NITROGEN 61 mg/dL (7-20); CALCIUM 9.9 mg/dL (8.4-10.2); CARBON DIOXIDE 27 mmol/L (22-30); CHLORIDE 99 mmol/L (98-107); CREATININE RESULT 2.17 mg/dL (0.52-1.25); GLUCOSE 122 mg/dL (75-110); PHOSPHORUS 2.9 mg/dL (2.5-4.5); POTASSIUM 4.3 mmol/L (3.6-5.0); SODIUM 139.2 mmol/L (137-145)
[2017-01-26 07:57] LABS: VITAMIN D 25-HYDROXY 29.2 ng/mL (30.0-100.0)
[2017-01-26 11:40] LABS: MICROALBUMIN URINE 20.4 ug/mL (Not Estab.)
== END ==
LOC: OD 13:13
PROVIDERS: ATTEND Internal Medicine Nephrology
DX: N18.4 Chronic kidney disease, stage 4 (severe) (principal); N25.81 Secondary hyperparathyroidism of renal origin
CPT/HCPCS: 36415; 80048; 81001; 82040; 82043; 82306; 82570; 83970; 84100; 85025

== ENCOUNTER 2017-02-27 17:28 | Inpatient (IN) | payer MEDICARE, OTHER ==
[2017-02-27] MEDS ORDERED: IPRATROPIUM/ALBUTEROL 0.5-2.5 MG/3 ML AMPUL NEB ONE (17:43)
--- NOTE | 2017-02-27 18:05 | RADIOLOGY REPORT (SQ) ---
EXAM DESCRIPTION: CHEST SINGLE VIEW COMPLETED DATE/TIME: 02/27/2017 5:53 pm REASON FOR STUDY: SOB COMPARISON: 01/11/2017 EXAM PARAMETERS: NUMBER OF VIEWS: One view. TECHNIQUE: Single frontal radiographic view of the chest acquired. RADIATION DOSE: NA LIMITATIONS: None. FINDINGS: LUNGS AND PLEURA: Pulmonary vascular congestion with pulmonary edema. No pneumothorax. N o localized infiltrate. MEDIASTINUM AND HILAR STRUCTURES: No masses. Contour normal. HEART AND VASCULAR STRUCTURES: Cardiomegaly. BONES: No acute findings. HARDWARE: None in the chest. OTHER: No other significant finding. IMPRESSION: Cardiomegaly with pulmonary edema. TECHNICAL DOCUMENTATION: JOB ID: [id number]
[2017-02-27 18:19] LABS: HEMATOCRIT 37.3 % (36.0-47.0); HEMOGLOBIN 12.8 g/dL (12.0-15.5); HGB HCT DIFFERENCE 1.1; MEAN CORPUSCULAR HEMOGLOBIN 32.4 pg (27.0-33.4); MEAN CORPUSCULAR HGB CONC 34.4 g/dL (32.0-36.0); MEAN CORPUSCULAR VOLUME 94 fl (80-97); RED BLOOD COUNT 3.95 10^6/uL (3.72-5.28); RED CELL DISTRIBUTION WIDTH 16.8 % (11.5-14.0); WHITE BLOOD COUNT 6.7 10^3/uL (4.0-10.5)
[2017-02-27 18:25] LABS: PROTHROMBIN TIME 15.3 SEC (11.4-15.4)
[2017-02-27 18:26] LABS: PARTIAL THROMBOPLASTIN TIME 39.4 SEC (23.5-35.8)
[2017-02-27 18:34] LABS: ALANINE AMINOTRANSFERASE 46 U/L (9-52); ALKALINE PHOSPHATASE 59 U/L (38-126); ANION GAP 11 (5-19); ASPARTATE AMINO TRANSFERASE 36 U/L (14-36); BILIRUBIN,DIRECT 0.5 mg/dL (0.0-0.4); BILIRUBIN,TOTAL 0.9 mg/dL (0.2-1.3); BLOOD UREA NITROGEN 50 mg/dL (7-20); CALCIUM 8.7 mg/dL (8.4-10.2); CARBON DIOXIDE 31 mmol/L (22-30); CHLORIDE 91 mmol/L (98-107); CREATINE KINASE 28 U/L (30-135); CREATININE RESULT 2.19 mg/dL (0.52-1.25); GLUCOSE 152 mg/dL (75-110); LIPASE 117.4 U/L (23-300); POTASSIUM 4.1 mmol/L (3.6-5.0); SODIUM 133.1 mmol/L (137-145); TOTAL PROTEIN 5.4 g/dL (6.3-8.2)
[2017-02-27 18:40] LABS: BAND NEUTROPHILS % (MANUAL) 2 % (3-5); BASOPHILS % (MANUAL) 0 % (0-2); EOSINOPHILS % (MANUAL) 0 % (0-6); LYMPHOCYTES % (MANUAL) 2 % (13-45); NUCLEATED RED BLOOD CELLS 1 /100 WBC (0); TOTAL CELLS COUNTED 100
--- NOTE | 2017-02-27 18:42 | ER Document Report ---
ED Respiratory Problem - General Chief Complaint: Respiratory Distress Stated Complaint: DIFFICULTY BREATHING Time Seen by Provider: 02/27/17 17:41 Notes: The patient is an 81-year-old female, past medical history COPD, CHF, presents with several days of shortness of breath that was worsening earlier today. When EMS arrived, her oxygenation was 70% on her normal 2 L nasal cannula. She was started on BiPAP and given a DuoNeb with improvement of her oxygenation and respiratory status. Patient takes Bumex every day and said that her peripheral edema is much better than before. She denies chest pain, fevers, back pain, hemoptysis, rash, headache, numbness, tingling or abdominal pain. TRAVEL OUTSIDE OF THE [place] IN LAST 30 DAYS: No - Related Data Allergies/Adverse Reactions: codeine [Codeine] Allergy (Verified 01/16/17 16:05) Past Medical History - General Information source: Patient, Emergency Med Personnel - Social History Smoking Status: Unknown if Ever Smoked Family History: Reviewed & Not Pertinent - Past Medical History Cardiac Medical History: Reports: Hx Congestive Heart Failure, Hx Coronary Artery Disease, Hx Heart Attack, Hx Hypercholesterolemia, Hx Hypertension Neurological Medical History: Reports: Hx Cerebrovascular Accident Endocrine Medical History: Reports: Hx Diabetes Mellitus Type 2 Renal/ Medical History: Denies: Hx Peritoneal Dialysis GI Medical History: Reports: Hx Gastroesophageal Reflux Disease Musculoskeltal Medical History: Reports Hx Gout Psychiatric Medical History: Denies: Hx Depression Past Surgical History: Reports: Hx Appendectomy, Hx Hysterectomy, Other - Shoulder replacement, bladder surgery Review of Systems - Review of Systems Notes: REVIEW OF SYSTEMS: CONSTITUTIONAL: -fevers, -chills EENT: -eye pain, -difficulty swallowing, -nasal congestion CARDIOVASCULAR:-chest pain, -syncope. RESPIRATORY: -cough, +SOB GASTROINTESTINAL: -abdominal pain, -nausea, -vomiting, -diarrhea GENITOURINARY: -dysuria, -hematuria MUSCULOSKELETAL: -back pain, -neck pain SKIN: -rash or skin lesions. HEMATOLOGIC: -easy bruising or bleeding. LYMPHATIC: -swollen, enlarged glands. NEUROLOGICAL: -altered mental status or loss of consciousness, -headache, - neurologic symptoms PSYCHIATRIC: -anxiety, -depression. ALL OTHER SYSTEMS REVIEWED AND NEGATIVE. Physical Exam - Vital signs Vitals: Resp Pulse Ox 37 H 96 02/27/17 17:43 02/27/17 17:43 - Notes Notes: PHYSICAL EXAMINATION: GENERAL: Well-appearing, well-nourished and in no acute distress. HEAD: Atraumatic, normocephalic. EYES: Pupils equal round and reactive to light, extraocular movements intact, sclera anicteric, conjunctiva are normal. ENT: nares patent, oropharynx clear without exudates. Moist mucous membranes. NECK: Normal range of motion, supple without lymphadenopathy LUNGS: Tachypnea, using accessory muscles, bibasilar rales, diffuse wheezes HEART: Tachycardia, irregular rhythm ABDOMEN: Soft, nontender, normoactive bowel sounds. No guarding, no rebound. No masses appreciated. EXTREMITIES: Normal range of motion, 1+ pitting edema up to knees. No cyanosis. NEUROLOGICAL: Cranial nerves grossly intact. Normal speech, normal gait. Normal sensory and motor exams. PSYCH: Normal mood, normal affect. SKIN: Warm, Dry, normal turgor, no rashes or lesions noted. Course - Re-evaluation Re-evalutation: Patient seen immediately on arrival to the emergency room. She is tachypneic and hypoxic (satting 70% on her home 2L O2) that has improved with BiPAP. Her chest x-ray shows evidence of pulmonary edema and cardiomegaly. She also has wheezes that have improved with DuoNebs and steroids. Her blood pressure is 105 /61, so she will have to be gently diuresed. Pt's troponin slightly elevated at 0.077, but repeat troponin 0.070 and she is not having any chest pain. Her creatinine is at baseline. Patient's primary care physician is Dr. Hart. She requires inpatient admission for further evaluation and treatment of her hypoxia and pulmonary edema. 02/27/17 22:[address] Terrell and he will admit patient as Inpatient to ICU. He is requesting antibiotics. Patient has not been hospitalized recently, so will begin CAP antibiotics. - Vital Signs Vital signs: Temp Pulse Resp BP Pulse Ox 98.4 F 24 H 98/75 L 96 02/27/17 18:00 02/27/17 22:02 02/27/17 22:00 02/27/17 22:02 - Laboratory Result Diagrams: 02/27/17 17:43 02/27/17 17:43 Laboratory results interpreted by me: 02/27/17 02/27/17 02/27/17 17:43 17:43 17:43 RDW 16.8 H Plt Count 145 L Seg Neuts % (Manual) 94 H Band Neutrophils % 2 L Lymphocytes % (Manual) 2 L Monocytes % (Manual) 2 L Abs Lymphs (Manual) 0.1 L APTT 39.4 H VBG pH Sodium 133.1 L Chloride 91 L Carbon Dioxide 31 H BUN 50 H Creatinine 2.19 H Est GFR ( Amer) 26 L Est GFR (Non-Af Amer) 22 L Glucose 152 H Direct Bilirubin 0.5 H Creatine Kinase 28 L NT-Pro-B Natriuret Pep Total Protein 5.4 L Albumin 3.0 L 02/27/17 02/27/17 17:43 17:43 RDW Plt Count Seg Neuts % (Manual) Band Neutrophils % Lymphocytes % (Manual) Monocytes % (Manual) Abs Lymphs (Manual) APTT VBG pH 7.45 H Sodium Chloride Carbon Dioxide BUN Creatinine Est GFR ( Amer) Est GFR (Non-Af Amer) Glucose Direct Bilirubin Creatine Kinase NT-Pro-B Natriuret Pep 48458 H Total Protein Albumin - Diagnostic Test Radiology reviewed: Image reviewed, Reports reviewed Radiology results interpreted by me: CXR: cardiomegaly with pulmonary edema - EKG Interpretation by Me EKG shows normal: Intervals Rate: Tachycardia Rhythm: A.Fib [place]/QRS: Left axis deviation Critical Care Note - Critical Care Note Total time excluding time spent on procedures (mins): 45 Discharge - Discharge Clinical Impression: Acute respiratory failure with hypoxia, COPD exacerbation Pulmonary edema Qualifiers: Chronicity: acute Qualified Code(s): J81.0 - Acute pulmonary edema Condition: Serious Disposition: ADMITTED INPATIENT [facility] Admitted: ICU
[2017-02-27 18:43] LABS: BURR CELLS 1+; OVALOCYTES 1+; PLATELET CLUMPS PRESENT; POIKILOCYTOSIS 1+; POLYCHROMASIA SLIGHT; TARGET CELLS SLIGHT; TEAR DROP CELLS SLIGHT
[2017-02-27] MEDS ORDERED: METHYLPREDNISOLONE INJ 125 MG/2 ML SDV IV ONE (18:43)
[2017-02-27 18:49] LABS: TROPONIN I 0.077 ng/mL
[2017-02-27 19:17] LABS: VENOUS BLOOD HCO3 28.5 mmol/L (20-32); VENOUS BLOOD PCO2 41.7 mmHg (35-63); VENOUS BLOOD PH 7.45 (7.30-7.42)
[2017-02-27] MEDS ORDERED: FUROSEMIDE INJ/PF 20 MG/2 ML SDV IV ONE (22:36)
[2017-02-27] MEDS ORDERED: AZITHROMYCIN INJ 500 MG VIAL IV ONE (22:41)
[2017-02-27] MEDS ORDERED: CEFTRIAXONE 1 GM/D5W RTU 1 GM/50 ML RTUPB IV ONE (22:41)
[2017-02-27] MEDS ORDERED: DEXTROSE 50%-WATER 25 GM/50 ML DISP.SYRIN IV PRN ×2 (22:43)
[2017-02-27] MEDS ORDERED: DEXTROSE 40% GEL 15 GM TUBE PO PRN ×2 (22:43)
[2017-02-27] MEDS ORDERED: GLUCAGON,HUMAN RECOMB 1 MG INJ IM PRN (22:43)
[2017-02-27 23:02] LABS: ADD ON TESTING BLD IN LAB ACKNOWLEDGE
[2017-02-27 23:25] LABS: MAGNESIUM 2.2 mg/dL (1.6-2.3)
[2017-02-27 23:45] LABS: VENOUS BLOOD BASE EXCESS 5.2 mmol/L; VENOUS BLOOD PCO2 44.4 mmHg (35-63); VENOUS BLOOD PH 7.45 (7.30-7.42)
[2017-02-28] MEDS ORDERED: ALBUTEROL SULFATE 0.083% NEB 2.5 MG/3 ML AMPUL NEB PRN (00:16)
[2017-02-28] MEDS ORDERED: ACETAMINOPHEN 325 MG TABLET PO PRN (00:18)
[2017-02-28] MEDS ORDERED: PROMETHAZINE HCL 25 MG TABLET PO PRN (00:18)
[2017-02-28] MEDS ORDERED: PHARMACY COMMUNICATION ORDER MC SCH (00:30)
[2017-02-28] MEDS ORDERED: AZITHROMYCIN INJ 500 MG VIAL IV PRN (00:40)
--- NOTE | 2017-02-28 00:59 | PDOC H&P ---
History of Present Illness Admission Date/PCP: 02/27/17 22:[address] Kasper Patient complains of: Short of breath History of Present Illness: BETH YOUNG is a 81 year old obese female with underlying as needed home O2 dependent COPD, type 2 diabetes mellitus, coronary artery disease , having suffered a previous [place], congestive heart failure, uncertain if systolic and/or diastolic, arthritis, gout, prior stroke without residual aftereffects, hyperlipidemia, and mild anxiety and depression, without suicidal or homicidal ideation, who presents to the emergency room by EMS for evaluation of above complaints. Patient has been discussed with emergency room physician who evaluated the patient. Patient seems a bit fatigued and somewhat confused and is able to provide little history in terms of acute or chronic events, review of systems, personal habits, family history, etc. daughter is present at her side, with patient's approval, and is helpful and informative, although she herself does not know some aspects of her mother's healthcare and issues. Old inpatient records are reviewed. Was in fairly significant respiratory distress upon arrival, but has improved with treatment so far including BiPAP. Blood pressures have been a bit "soft," so Lasix has not been given. Several day history of gradually worsening shortness of breath, in particular over the last 24 hours. Upon EMS arrival, oxygen concentration was 70% on 2 L oxygen per nasal cannula. Started on BiPAP and given a DuoNeb. Normally takes Bumex every day. Patient has family member staying with her at all time and normally is weighed most days. Daughter states that recently she is actually lost a bit of weight. No unusual ankle swelling. Only recent medication change has been the addition of Cipro several days ago for urinary tract infection. 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 No chest or abdominal pain, fever or chills. No diarrhea or dysuria. Dictation via voice recognition software. Laboratory results are listed in [employer] and are reviewed. X-ray summary results are listed below, with full report(s) reviewed. EKG reviewed and compared to a prior tracing from January 16 of this year. No documented history of prior atrial fibrillation, her daughter's comments, or review of prior EKGs, or history and physical or discharge summary. Social history/personal habits: . One of her children stays with her at all times. No use of alcohol tobacco or illicit drugs. Allergies/adverse reactions are listed in [employer] and are reviewed. No problems with morphine or Percocet. Home medications initially autopopulated into [employer] may not accurately reflect patient's true medications, dosages, and/or frequencies. system technologist to reconcile medications. Unfortunately, patient not able to provide any information related to medications/dosages/frequencies. REVIEW OF SYSTEMS: Constitutional: No fever or chills. Eyes: Wears glasses. ENT: No swallowing problems or complaints. Partial hearing loss. Pulmonary: See history and present illness. Cardiovascular: No current complaints, including chest pain. Gastrointestinal: No current complaints, including nausea or vomiting. Skin: No current complaints, including rashes. Hematologic: Easy bruising. Neurologic: Continue problems with Chaudhry's palsy affecting right side of her face. Onset 2 months ago per daughter. Musculoskeletal: Joint pain from arthritis. Psychiatric: Mild anxiety and depression. No suicidal or homicidal ideation. Endocrine: No current complaints, including polyuria. Genitourinary: No current complaints, including dysuria. PHYSICAL EXAMINATION: Neither height nor weight are recorded on the chart. Blood pressure 111/72. Pulse 105 and regular. 96% saturation on BiPAP 12/6, 40%. Respirations are 22 and unlabored. Temperature 98.4. Obese elderly female appearing approximately her stated age. Pleasant awake alert and cooperative, although somewhat anxious, and a bit fatigued. BiPAP mask is in place. Daughter is present at her side; patient approves. Skin is warm and dry. No grossly obvious evidence of rash in areas of skin examined. No subcutaneous nodules palpated. ENT: Perhaps mildly hard of hearing to normal conversation. Tongue midline on protrusion pink and slightly tacky. Exam slightly limited by BiPAP mask with attaching straps. Eyes: No scleral icterus. Pupils equal and reactive to light at 4 mm. [place] conjunctivae. Neck is supple and nontender to gentle active range of motion and palpation. Midline trachea. No palpable thyroid nodule mass enlargement or tenderness. Lymphatic: No palpable cervical or clavicular nodes. Neck and lymphatic exams limited by patient body habitus. Exam slightly limited by BiPAP mask with attaching straps. Psychiatric: Difficult to adequately evaluate due to her current status. See history and present illness. Lungs: Auscultation reveals clear and equal breath sounds bilaterally. No use of accessory respiratory muscles. Cardiovascular: Heart regular rate and rhythm, without gallop murmur or rub. No abdominal aortic bruits. No ankle or pedal edema. Faintly palpable dorsalis pedis pulses. Difficult to evaluate for carotid bruit due to airway sounds from BiPAP device. Abdomen:soft somewhat obese nontender with positive bowel sounds. Unable to adequately evaluate abdomen for masses or organomegaly due to body habitus. Extremities: Feet are warm and dry. No calf tenderness to compression. No grossly obvious visual evidence of calf swelling. Gentle manipulation of lower extremities fails to reveal any obvious evidence of injury or instability to knees hips or ankles. Neurologic: Moves upper extremities grossly normally. Patellar reflexes absent. Absent Babinski. Light touch can't be adequately evaluated due to her mental status. Dorsiflexion and plantarflexion of feet 5 / 5 and symmetric. Past Medical History Past Medical History: Information from current and prior records, along with daughter. Patient can't provide any information herself. Cardiac Medical History: Reports: Congestive Heart Failure, Coronary Artery Disease, Myocardial Infarction, Hyperlipidema, Hypertension Endocrine Medical History: Reports: Diabetes Mellitus Type 2 GI Medical History: Reports: Gastroesophageal Reflux Disease Musculoskeltal Medical History: Reports: Gout Psychiatric Medical History: Denies: Depression Past Surgical History Past Surgical History: Information from current and prior records, along with daughter. Patient can't provide any information herself. Past Surgical History: Reports: Appendectomy, Hysterectomy, Other - Shoulder replacement, bladder surgery Social History Information Source: Relative - Daughter, Emergency Med Personnel, [facility] Records Lives with: Family Smoking Status: Unknown if Ever Smoked Frequency of Alcohol Use: None Hx Recreational Drug Use: No Drugs: None Hx Prescription Drug Abuse: No - Advance Directive Resuscitation Status: Do Not Resuscitate Surrogate healthcare decision maker:: Children Family History Family History: Reviewed & Not Pertinent Parental Family History Reviewed: Yes - Father committed suicide; mother of cancer Children Family History Reviewed: Yes - Uncertain health status Sibling(s) Family History Reviewed.: Yes - Hypertension Medication/Allergy Home Medications: Acyclovir [Acyclovir 400 mg Tablet] 400 mg PO DAILY 02/28/17 Atorvastatin Calcium [Lipitor 80 mg Tablet] 80 mg PO QHS 02/28/17 Bumetanide [Bumex 2 mg Tablet] 2 mg PO BID 02/28/17 Carvedilol [Coreg 6.25 mg Tablet] 12.5 mg PO BID 02/28/17 Ciprofloxacin HCl [Cipro 500 mg Tablet] 500 mg PO BID 02/28/17 Cyanocobalamin/Folic AC/Vit B6 [Folbic Tablet] 1 each PO DAILY 02/28/17 Esomeprazole Magnesium [Nexium] 40 mg PO DAILY 02/28/17 Febuxostat [Uloric 80 mg Tablet] 80 mg PO DAILY 02/28/17 Fluticasone/Vilanterol [Breo Ellipta 100-25 Mcg INH] 2 puff IH QPM 02/28/17 Loratadine [Claritin 10 mg Tablet] 10 mg PO DAILY 02/28/17 Melatonin/Pyridoxine HCl (B6) [Melatonin 10 mg Tablet] 10 mg PO QPM 02/28/17 Paricalcitol [Zemplar 1 Mcg Capsule] 1 mcg PO MOTUWETHFR@1000 02/28/17 RX: Aspirin [Aspirin 81 mg Chewable Tablet] 81 mg PO DAILY 02/28/17 RX: Folic Acid [Folvite 1 mg Tablet] 1 mg PO DAILY 02/28/17 RX: Magnesium 500 mg PO DAILY 02/28/17 RX: Prednisone [Deltasone 20 mg Tablet] 20 mg PO DAILY 02/28/17 Sertraline HCl [Zoloft] 100 mg PO QPM 02/28/17 Zolpidem Tartrate [Ambien 5 mg Tablet] 5 mg PO ASDIR PRN 02/28/17 Allergies/Adverse Reactions: codeine [Codeine] Allergy (Verified 02/28/17 00:18) Physical Exam Vital Signs: Temp Pulse Resp BP Pulse Ox 98.4 F 23 H 102/72 95 02/27/17 18:00 02/27/17 23:01 02/27/17 23:01 02/27/17 23:01 Results Laboratory Results: 02/27/17 23:25 VBG pH 7.45 H VBG pCO2 44.4 VBG HCO3 30.0 VBG Base Excess 5.2 Impressions: Chest X-Ray 02/27/17 17:42 IMPRESSION: Cardiomegaly with pulmonary edema. Assessment & Plan - Diagnosis (1) New onset a-fib Is this a current diagnosis for this admission?: Yes Plan: d dimer (2) Acute on chronic respiratory failure with hypoxemia Is this a current diagnosis for this admission?: Yes Plan: Patient will be admitted under COPD exacerbation protocol. Incentive spirometry twice a day. Scheduled DuoNeb's. As needed albuterol nebs. Prednisone. Prevacid for gastritis prophylaxis. Continue BiPAP; wean from same. Serial venous blood gas. Antibiotics will consist of intravenous Zithromax along with Rocephin. Pharmacy to assist with dosing. I have strongly encouraged patient not to get out of bed without notifying staff , to avoid a fall with injury. Knee high SCDs for DVT prophylaxis, along with subcutaneous heparin. Impression and plans were discussed with patient and daughter, both of whom concur. Daughter understands that any baseline underlying confusion may very well worsen while she is in the hospital. Time spent in evaluation and management of patient: 78 critical care minutes. (3) CHF exacerbation Qualifiers: Congestive heart failure type: unspecified congestive heart failure type Qualified Code(s): I50.9 - Heart failure, unspecified Is this a current diagnosis for this admission?: Yes Plan: Serial troponins. Lasix, with appropriate hold parameters. Cardiology consult. Echocardiogram [address] Kasper office; results pending. (4) COPD exacerbation Is this a current diagnosis for this admission?: Yes (5) DNR (do not resuscitate) Is this a current diagnosis for this admission?: Yes Plan: Implications of DO NOT RESUSCITATE/DO NOT INTUBATE status discussed with daughter. Discussed in layperson's terms. Implications understood. Daughter is the health care decision maker. Her conversation is lucid and appropriate. She desires DO NOT RESUSCITATE/DO NOT INTUBATE status, and states patient has expressed this desire in the past. Will honor patient and daughter's wishes. (6) Elevated troponin Is this a current diagnosis for this admission?: Yes Plan: No outward evidence of acute coronary syndrome at this time. Suspect due to congestive heart failure exacerbation. Serial troponins. (7) Hyponatremia Is this a current diagnosis for this admission?: Yes Plan: Mild. Follow-up chemistry. (8) CKD (chronic kidney disease) stage 4, GFR 15-29 ml/min Is this a current diagnosis for this admission?: Yes (9) Diabetes mellitus type 2 in obese Is this a current diagnosis for this admission?: Yes Plan: Ice chips while on BiPAP. Accu-Cheks with appropriate sliding scale coverage. Resume home medications as appropriate once these have been determined and reviewed. (10) Elevated d-dimer Is this a current diagnosis for this admission?: Yes Plan: v/q scan - Time Critical Time spent with patient: 35 or more minutes Medications reviewed and adjusted accordingly: No - Patient and daughter uncertain as to patient specific medications. Anticipated discharge: Home Within: within 72 hours - Inpatient Certification Based on my medical assessment, after consideration of the patient's comorbidities, presenting symptoms, or acuity I expect that the services needed warrant INPATIENT care.: Yes I certify that my determination is in accordance with my understanding of Medicare's requirements for reasonable and necessary INPATIENT services [42 CFR 412.3e].: Yes Medical Necessity: Significant Comorbidiites Make Outpatient Treatment Too Risky , Need Close Monitoring Due to Risk of Patient Decompensation, Need For Continuous Telemetry Monitoring, Need for Nebulizer Therapy and Monitoring of Response, Need for IV Antibiotics, Risk of Diagnosis Which Will Require Inpatient Eval/Care/Monitoring Post Hospital Care: D/C or Transfer Summary
[2017-02-28] MEDS ORDERED: CEFTRIAXONE 1 GM/D5W RTU 1 GM/50 ML RTUPB IV ONE (01:00)
[2017-02-28] MEDS ORDERED: AZITHROMYCIN 500 MG in DEXTROSE 5%-WATER 250 ML IV ONE (01:00)
[2017-02-28] MEDS ORDERED: LANSOPRAZOLE 30 MG TAB.RAP.DR PO ONE (01:15)
[2017-02-28] MEDS ORDERED: FUROSEMIDE INJ/PF 40 MG/4 ML SDV IV ONE (02:00)
--- NOTE | 2017-02-28 04:05 | RADIOLOGY REPORT (SQ) ---
EXAM DESCRIPTION: NM LUNG PERFUSION SCAN COMPLETED DATE/TIME: 02/28/2017 2:24 am REASON FOR STUDY: elev d dimer COMPARISON: None. RADIONUCLIDE AND DOSE: 5.0 millicuries TC-99m MAA The route of agent administration: Intravenous TECHNIQUE: 6 views of the lungs acquired following injection of MAA. LIMITATIONS: Limited projections. No ventilation performed. FINDINGS: PERFUSION: There are extensive nonsegmental, predominantly non wedge perfusion abnormaliti es without significant discordance compared with corresponding radiograph. OTHER: No other significant finding. IMPRESSION: PE absent (very low probability). Limitation. TECHNICAL DOCUMENTATION: JOB ID: [id number] [employer]- All Rights Reserved
[2017-02-28 04:22] LABS: VENOUS BLOOD BASE EXCESS 5.7 mmol/L; VENOUS BLOOD HCO3 30.8 mmol/L (20-32); VENOUS BLOOD PH 7.44 (7.30-7.42)
[2017-02-28 04:35] LABS: ANION GAP 13 (5-19); BLOOD UREA NITROGEN 54 mg/dL (7-20); CARBON DIOXIDE 29 mmol/L (22-30); CHLORIDE 94 mmol/L (98-107); CREATININE RESULT 2.22 mg/dL (0.52-1.25); GLUCOSE 183 mg/dL (75-110); POTASSIUM 3.9 mmol/L (3.6-5.0); SODIUM 135.6 mmol/L (137-145)
[2017-02-28 04:43] LABS: HEMATOCRIT 34.5 % (36.0-47.0); HGB HCT DIFFERENCE 1.5; MEAN CORPUSCULAR HEMOGLOBIN 32.4 pg (27.0-33.4); MEAN CORPUSCULAR HGB CONC 34.7 g/dL (32.0-36.0); MEAN CORPUSCULAR VOLUME 93 fl (80-97); RED CELL DISTRIBUTION WIDTH 16.7 % (11.5-14.0); WHITE BLOOD COUNT 8.3 10^3/uL (4.0-10.5)
[2017-02-28 05:01] LABS: BAND NEUTROPHILS % (MANUAL) 1 % (3-5); BASOPHILS % (MANUAL) 0 % (0-2); EOSINOPHILS % (MANUAL) 0 % (0-6); LYMPHOCYTES % (MANUAL) 5 % (13-45); TOTAL CELLS COUNTED 100
[2017-02-28 05:04] LABS: ANISOCYTOSIS 1+; BURR CELLS SLIGHT; OVALOCYTES SLIGHT; POIKILOCYTOSIS SLIGHT; TOXIC VACUOLATION PRESENT
[2017-02-28] MEDS ORDERED: AZITHROMYCIN INJ 500 MG VIAL IV ONE (06:34)
[2017-02-28] MEDS: LANSOPRAZOLE 30 MG TAB.RAP.DR PO SCH ×2 (07:04→17:26)
--- NOTE | 2017-02-28 08:15 | EKG REPORT ---
SEVERITY:- ABNORMAL ECG - ATRIAL FIBRILLATION, V-RATE 85-140 LEFT AXIS DEVIATION : Confirmed by: Kingsley Mcduffie MD 28-Feb-2017 08:15:13
[2017-02-28] MEDS ORDERED: INFLUENZA ADLT QUAD (36MOS+) 2017-18 VAC 0.5 ML SYR IM PRN (08:19)
[2017-02-28] MEDS: IPRATROPIUM/ALBUTEROL 0.5-2.5 MG/3 ML AMPUL NEB SCH ×3 (08:22→19:53)
[2017-02-28] MEDS: HEPARIN SOD (PORCINE) 5,000 UNIT/ML 1 ML SYRINGE SUBCUT SCH ×2 (09:11→23:33)
[2017-02-28] MEDS: PREDNISONE 20 MG TABLET PO SCH (09:11)
[2017-02-28 10:13] LABS: APPEARANCE,URINE CLEAR; BILIRUBIN,URINE NEGATIVE (NEGATIVE); GLUCOSE, URINE NEGATIVE (NEGATIVE); KETONES,URINE NEGATIVE (NEGATIVE); LEUKOCYTE ESTERASE,URINE NEGATIVE (NEGATIVE); NITRITE,URINE NEGATIVE (NEGATIVE); PROTEIN,URINE NEGATIVE (NEGATIVE); URINE SPECIFIC GRAVITY 1.009; UROBILINOGEN,URINE NEGATIVE mg/dL (<2.0)
--- NOTE | 2017-02-28 17:04 | PDOC PROGRESS REPORT ---
Subjective Progress Note for:: 02/28/17 Subjective:: Pt is seen resting in bed comfortably with her family present. She reports that she is "worn out" but breathing easily with supplemental oxygen via NC. She states that she is hungry and asks to order supper. She is happy to have been weaned from BiPAP. She denies cough, dyspnea, or orthopnea at present. She denies chest pain or palpitations. She and her family are uncertain of possible previous a. fib diagnosis. She does have a buddhist monk, whom she sees regularly. She also recently had an overnight sleep study completed and plan to follow up with cardiology w/ regard to results. Family reports that the patient is more alert, "back to herself." They have no questions or concerns today. Review of systems as above and is otherwise negative. Physical Exam Vital Signs: Temp Pulse Resp BP Pulse Ox 98.0 F 39 L 22 H 121/87 H 99 02/28/17 15:53 02/28/17 15:53 02/28/17 15:53 02/28/17 15:53 02/28/17 15:53 Intake & Output 02/27/17 02/28/17 03/01/17 06:59 06:59 06:59 Intake Total 0 Output Total 0 425 Balance 0 -425 Weight 104.8 kg General appearance: PRESENT: no acute distress, hard of hearing, obese, well- developed, well-nourished Head exam: PRESENT: atraumatic, normocephalic Eye exam: PRESENT: conjunctiva pink, EOMI, PERRLA. ABSENT: scleral icterus Ear exam: PRESENT: normal external ear exam Mouth exam: PRESENT: moist, tongue midline Teeth exam: PRESENT: poor dentation Neck exam: ABSENT: carotid bruit, JVD, lymphadenopathy, thyromegaly Respiratory exam: PRESENT: clear to auscultation heather, unlabored, other - Oxygen at 4 Lpm via NC. ABSENT: accessory muscle use, rales, rhonchi, symmetrical, tachypnea, wheezes Cardiovascular exam: PRESENT: RRR. ABSENT: diastolic murmur, rubs, systolic murmur Pulses: PRESENT: normal dorsalis pedis pul Vascular exam: PRESENT: normal capillary refill GI/Abdominal exam: PRESENT: normal bowel sounds, soft. ABSENT: distended, guarding, mass, organolmegaly, rebound, tenderness Rectal exam: PRESENT: deferred Extremities exam: PRESENT: full ROM, pedal edema - trace bilateral pedal edema. ABSENT: calf tenderness, clubbing Neurological exam: PRESENT: alert, awake, oriented to person, oriented to place , oriented to time, oriented to situation, CN II-XII grossly intact. ABSENT: motor sensory deficit Psychiatric exam: PRESENT: appropriate affect, normal mood. ABSENT: homicidal ideation, suicidal ideation Skin exam: PRESENT: dry, intact, warm. ABSENT: cyanosis, rash Results Laboratory Results: 02/28/17 04:01 02/28/17 04:01 02/28/17 02/28/17 02/28/17 04:01 04:01 04:01 WBC 8.3 RBC 3.70 L Hgb 12.0 Hct 34.5 L MCV 93 MCH 32.4 MCHC 34.7 RDW 16.7 H Plt Count 139 L Seg Neutrophils % Not Reportable Lymphocytes % Not Reportable Monocytes % Not Reportable Eosinophils % Not Reportable Basophils % Not Reportable Absolute Neutrophils Not Reportable Absolute Lymphocytes Not Reportable Absolute Monocytes Not Reportable Absolute Eosinophils Not Reportable Absolute Basophils Not Reportable VBG pH 7.44 H VBG pCO2 47.0 VBG HCO3 30.8 VBG Base Excess 5.7 Sodium 135.6 L Potassium 3.9 Chloride 94 L Carbon Dioxide 29 Anion Gap 13 BUN 54 H Creatinine 2.22 H Est GFR ( Amer) 26 L Est GFR (Non-Af Amer) 21 L Glucose 183 H Calcium 9.0 TSH Urine Color Urine Appearance Urine pH Ur Specific [place] Urine Protein Urine Glucose (UA) Urine Ketones Urine Blood Urine Nitrite Ur Leukocyte Esterase Urine WBC (Auto) Urine RBC (Auto) 02/28/17 02/28/17 04:01 09:20 WBC RBC Hgb Hct MCV MCH MCHC RDW Plt Count Seg Neutrophils % Lymphocytes % Monocytes % Eosinophils % Basophils % Absolute Neutrophils Absolute Lymphocytes Absolute Monocytes Absolute Eosinophils Absolute Basophils VBG pH VBG pCO2 VBG HCO3 VBG Base Excess Sodium Potassium Chloride Carbon Dioxide Anion Gap BUN Creatinine Est GFR ( Amer) Est GFR (Non-Af Amer) Glucose Calcium TSH 0.46 L Urine Color YELLOW Urine Appearance CLEAR Urine pH 5.0 Ur Specific [place] 1.009 Urine Protein NEGATIVE Urine Glucose (UA) NEGATIVE Urine Ketones NEGATIVE Urine Blood NEGATIVE Urine Nitrite NEGATIVE Ur Leukocyte Esterase NEGATIVE Urine WBC (Auto) 1 Urine RBC (Auto) 0 02/28/17 04:01 Troponin I 0.055 Impressions: Chest X-Ray 02/27/17 17:42 IMPRESSION: Cardiomegaly with pulmonary edema. Lung Scan-VQ NM 02/28/17 01:01 IMPRESSION: PE absent (very low probability). Limitation. Assessment & Plan - Diagnosis (1) Acute on chronic respiratory failure with hypoxemia Is this a current diagnosis for this admission?: Yes Plan: Improved; now weaned to supplemental oxygen via NC. 1- BiPAP QHS and PRN 2- Scheduled duonebs and prn albuterol treatments 3- PO prednisone for COPD exacerbation 4- Will continue IV abx and narrow as cultures result (2) CHF exacerbation Qualifiers: Congestive heart failure type: unspecified congestive heart failure type Qualified Code(s): I50.9 - Heart failure, unspecified Is this a current diagnosis for this admission?: Yes Plan: Pro-BNP 13813 1- Appreciate Cardiology consultation 2- IV lasix w/ strict I&O and daily wt 3- Serial troponins (3) COPD exacerbation Is this a current diagnosis for this admission?: Yes Plan: Improved. Plan as above: BiPAP and supplemental oxygen for support. Scheduled/ prn neb treatments. PO Prednisone. IV abx for presumptive pneumonia; will narrow as cultures result. (4) Elevated d-dimer Is this a current diagnosis for this admission?: Yes Plan: D-dimer elevated; likely incidental r/t reduced mobility. V/Q scan with very low probability of PE. No evidence of DVT on exam. (5) Elevated troponin Is this a current diagnosis for this admission?: Yes Plan: Likely 2/2 heart strain related to CHF exacerbation in setting of CKD. Will trend serial enzymes. Appreciate cardiology consultation. (6) New onset a-fib Is this a current diagnosis for this admission?: Yes Plan: 1- Appreciate cardiology consultation 2- Echocardiogram (7) CKD (chronic kidney disease) stage 4, GFR 15-29 ml/min Is this a current diagnosis for this admission?: Yes (8) Diabetes mellitus type 2 in obese Is this a current diagnosis for this admission?: Yes Plan: Accuchecks with SSI coverage. Pt not currently on home medications for DM; consider need as approaching d/c. - Time Time Spent with patient: 25-34 minutes Medications reviewed and adjusted accordingly: Yes Anticipated discharge: Home with Homehealth
--- NOTE | 2017-02-28 20:16 | PDOC CONSULTATION ---
Consultation Consult Date: 02/28/17 Attending physician:: JOVITA GUAJARDO Consult reason:: Dyspnea History of Present Illness Admission Date/PCP: 02/27/17 23:50 Patient complains of: Dyspnea History of Present Illness: BETH YOUNG is a 81 year old obese female with underlying as needed home O2 dependent COPD, type 2 diabetes mellitus, coronary artery disease , having suffered a previous IA, congestive heart failure, uncertain if systolic and/or diastolic, arthritis, gout, prior stroke without residual aftereffects, hyperlipidemia, and mild anxiety and depression, without suicidal or homicidal ideation, who presents to the emergency room by EMS for evaluation of above complaints. Patient has been discussed with emergency room physician who evaluated the patient. Patient is seems a bit fatigued and somewhat confused and is able to provide little history in terms of acute or chronic events, review of systems, personal habits, family history, etc. daughter is present at her side, with patient's approval, and is helpful and informative, although she herself does not know some aspects of her mother's healthcare and issues. Old inpatient records are reviewed. Was in fairly significant respiratory distress upon arrival, but has improved with treatment so far including BiPAP. Blood pressures have been a bit "soft," so Lasix has not been given. Several day history of gradually worsening shortness of breath, in particular over the last 24 hours. Upon EMS arrival, oxygen concentration was 70% on 2 L oxygen per nasal cannula. Started on BiPAP and given a DuoNeb. Normally takes Bumex every day. Patient has family member staying with her at all time and normally gets weighed most days. Daughter states that recently she is actually lost a bit of weight. No unusual ankle swelling. Only recent medication change has been the addition of Cipro several days ago for urinary tract infection. 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 No chest or abdominal pain, fever or chills. No diarrhea or dysuria. Patient's family at bedside. This history was reviewed and confirmed. Patient today noted to be very lethargic. She was noted to be difficult to arouse and was continuing to use positive pressure noninvasive ventilation. Past Medical History Cardiac Medical History: Reports: Congestive Heart Failure, Coronary Artery Disease, Myocardial Infarction, Hyperlipidema, Hypertension Endocrine Medical History: Reports: Diabetes Mellitus Type 2 GI Medical History: Reports: Gastroesophageal Reflux Disease Musculoskeltal Medical History: Reports: Gout Psychiatric Medical History: Denies: Depression Past Surgical History Past Surgical History: Reports: Appendectomy, Hysterectomy, Other - Shoulder replacement, bladder surgery Social History Information Source: Relative Lives with: Family Smoking Status: Unknown if Ever Smoked Frequency of Alcohol Use: None Hx Recreational Drug Use: No Drugs: None Hx Prescription Drug Abuse: No - Advance Directive Resuscitation Status: Do Not Resuscitate Surrogate healthcare decision maker:: Patient's daughter is the surrogate decision-maker Family History Family History: Hypertension Parental Family History Reviewed: Yes Children Family History Reviewed: Yes Sibling(s) Family History Reviewed.: Yes Medication/Allergy Home Medications: Acyclovir [Acyclovir 400 mg Tablet] 400 mg PO DAILY 02/28/17 Aspirin [Aspirin 81 mg Chewable Tablet] 81 mg PO DAILY 02/28/17 Atorvastatin Calcium [Lipitor 80 mg Tablet] 80 mg PO QHS 02/28/17 Bumetanide [Bumex 2 mg Tablet] 2 mg PO BID 02/28/17 Carvedilol [Coreg 6.25 mg Tablet] 12.5 mg PO BID 02/28/17 Ciprofloxacin HCl [Cipro 500 mg Tablet] 500 mg PO BID 02/28/17 Cyanocobalamin/Folic AC/Vit B6 [Folbic Tablet] 1 each PO DAILY 02/28/17 Esomeprazole Magnesium [Nexium] 40 mg PO DAILY 02/28/17 Febuxostat [Uloric 80 mg Tablet] 80 mg PO DAILY 02/28/17 Fluticasone/Vilanterol [Breo Ellipta 100-25 Mcg INH] 2 puff IH QPM 02/28/17 Folic Acid [Folvite 1 mg Tablet] 1 mg PO DAILY 02/28/17 Loratadine [Claritin 10 mg Tablet] 10 mg PO DAILY 02/28/17 Magnesium 500 mg PO DAILY 02/28/17 Melatonin/Pyridoxine HCl (B6) [Melatonin 10 mg Tablet] 10 mg PO QPM 02/28/17 Paricalcitol [Zemplar 1 Mcg Capsule] 1 mcg PO MOTUWETHFR@1000 02/28/17 Prednisone [Deltasone 20 mg Tablet] 20 mg PO DAILY 02/28/17 Sertraline HCl [Zoloft] 100 mg PO QPM 02/28/17 Zolpidem Tartrate [Ambien 5 mg Tablet] 5 mg PO ASDIR PRN 10/10/17 Allergies/Adverse Reactions: codeine [Codeine] Allergy (Verified 02/28/17 00:18) Review of Systems ROS unobtainable: Due to mental status Physical Exam Vital Signs: Temp Pulse Resp BP Pulse Ox 98.0 F 93 17 121/87 H 98 02/28/17 15:53 02/28/17 19:53 02/28/17 19:53 02/28/17 15:53 02/28/17 19:53 Intake & Output 02/27/17 02/28/17 03/01/17 06:59 06:59 06:59 Intake Total 472 Output Total 0 525 Balance 0 -53 Weight 104.8 kg Exam: GENERAL: well-nourished and in no acute distress. Patient is alert but not oriented to place time or person. HEAD: Atraumatic, normocephalic. EYES: Pupils equal round and reactive to light, extraocular movements intact, sclera anicteric, conjunctiva are normal. ENT: TMs normal, nares patent, oropharynx clear without exudates. Moist mucous membranes. No oral ulcerations or bleeding gums noted NECK: supple without lymphadenopathy or JVD. Trachea is central. No cervical or axillary lymphadenopathy noted. Carotids are 2+ LUNGS: Breath sounds bibasilar fine crackles at bases. No significant dullness noted. CHEST: Palpation of chest wall shows no significant chest wall tenderness. HEART: [place] PRODUCTION QUALITY ANALYST, No PSH, 2/6 CHE aortic area, 1/6 ley systolic murmur mitral area, rubs or gallops. ABDOMEN: Soft, no significant tenderness appreciated, normoactive bowel sounds. No guarding, no rebound. No rigidity noted . No masses appreciated. EXTREMITIES: Pedal pulses are 1-2+, no calf tenderness noted, 1-2 + pedal edema noted. No clubbing or cyanosis. NEUROLOGICAL: Patient is alert but is not able to participate in neurological exam because of patient's current mental status PSYCH: Patient cannot participate in a neurologic and psych exam because of the patient's current mental status SKIN: No significant ecchymosis, rash, ulcerations or signs of pruritus noted. MUSCULOSKELETAL EXAM: No significant joint swelling noted. Results Laboratory Results: 02/28/17 04:01 02/28/17 04:01 02/28/17 02/28/1717 04:01 04:01 04:01 WBC 8.3 RBC 3.70 L Hgb 12.0 Hct 34.5 L MCV 93 MCH 32.4 MCHC 34.7 RDW 16.7 H Plt Count 139 L Seg Neutrophils % Not Reportable Lymphocytes % Not Reportable Monocytes % Not Reportable Eosinophils % Not Reportable Basophils % Not Reportable Absolute Neutrophils Not Reportable Absolute Lymphocytes Not Reportable Absolute Monocytes Not Reportable Absolute Eosinophils Not Reportable Absolute Basophils Not Reportable VBG pH 7.44 H VBG pCO2 47.0 VBG HCO3 30.8 VBG Base Excess 5.7 Sodium 135.6 L Potassium 3.9 Chloride 94 L Carbon Dioxide 29 Anion Gap 13 BUN 54 H Creatinine 2.22 H Est GFR ( Amer) 26 L Est GFR (Non-Af Amer) 21 L Glucose 183 H Calcium 9.0 TSH Urine Color Urine Appearance Urine pH Ur Specific [place] Urine Protein Urine Glucose (UA) Urine Ketones Urine Blood Urine Nitrite Ur Leukocyte Esterase Urine WBC (Auto) Urine RBC (Auto) 02/28/17 02/28/17 04:01 09:20 WBC RBC Hgb Hct MCV MCH MCHC RDW Plt Count Seg Neutrophils % Lymphocytes % Monocytes % Eosinophils % Basophils % Absolute Neutrophils Absolute Lymphocytes Absolute Monocytes Absolute Eosinophils Absolute Basophils VBG pH VBG pCO2 VBG HCO3 VBG Base Excess Sodium Potassium Chloride Carbon Dioxide Anion Gap BUN Creatinine Est GFR ( Amer) Est GFR (Non-Af Amer) Glucose Calcium TSH 0.46 L Urine Color YELLOW Urine Appearance CLEAR Urine pH 5.0 Ur Specific [place] 1.009 Urine Protein NEGATIVE Urine Glucose (UA) NEGATIVE Urine Ketones NEGATIVE Urine Blood NEGATIVE Urine Nitrite NEGATIVE Ur Leukocyte Esterase NEGATIVE Urine WBC (Auto) 1 Urine RBC (Auto) 0 02/28/17 02/28/17 04:01 17:50 Troponin I 0.055 0.046 EKG Comments: Atrial fibrillation with rapid ventricular response but no acute ST-T wave changes are noted. Impressions: Chest X-Ray 02/27/17 17:42 IMPRESSION: Cardiomegaly with pulmonary edema. Lung Scan-VQ NM 02/28/17 01:01 IMPRESSION: PE absent (very low probability). Limitation. Assessment & Plan - Diagnosis (1) Acute on chronic respiratory failure with hypoxemia Is this a current diagnosis for this admission?: Yes (2) CHF exacerbation Qualifiers: Congestive heart failure type: unspecified congestive heart failure type Qualified Code(s): I50.9 - Heart failure, unspecified Is this a current diagnosis for this admission?: Yes (3) COPD exacerbation Is this a current diagnosis for this admission?: Yes (4) New onset a-fib Is this a current diagnosis for this admission?: Yes (5) Essential hypertension Is this a current diagnosis for this admission?: Yes - Notes Notes: Acute on chronic respiratory failure with hypoxemia by O2 sat monitoring: Possibly combination of COPD and CHF. Recommend diuretic therapy and oxygen supplementation and artificial ventilation. CHF exacerbation: This is related to diastolic dysfunction and volume overload. Recent echocardiogram from few months ago was reviewed. COPD with exacerbation: Continue current management plans. New onset atrial fibrillation: Exact duration and onset is not clear by history. Recommend chronic anticoagulation at this point along with rate control. Patient would be a good candidate for chronic anticoagulation in view of prior history of CVA. Hypertension: Blood pressure under satisfactory control. History of cerebrovascular accident: Currently stable. A full examination is not possible at this point due to altered mental status. - Time Time Spent: 30 to 50 Minutes - CODE STATUS was discussed, patient remains DNR. Surrogate decision-maker unchanged. Multiple medical problems were addressed. More than 50% of the time spent coordinating care, discussing management plans with involved caregivers. Management plans discussed with involved personnels. Medical decision making was of moderate to high complexity, patient's has multiple comorbidities. Medications reviewed and adjusted accordingly: Yes
[2017-02-28] MEDS ORDERED: AZITHROMYCIN 500 MG in DEXTROSE 5%-WATER 250 ML IV SCH (22:00)
[2017-02-28] MEDS: FUROSEMIDE INJ/PF 40 MG/4 ML SDV IV SCH (23:33)
[2017-02-28] MEDS: CEFTRIAXONE 1 GM/D5W RTU 1 GM/50 ML RTUPB IV SCH (23:34)
[2017-03-01 05:34] LABS: HEMATOCRIT 32.1 % (36.0-47.0); HEMOGLOBIN 11.1 g/dL (12.0-15.5); HGB HCT DIFFERENCE 1.2; MEAN CORPUSCULAR HEMOGLOBIN 32.1 pg (27.0-33.4); MEAN CORPUSCULAR HGB CONC 34.8 g/dL (32.0-36.0); MEAN CORPUSCULAR VOLUME 92 fl (80-97); RED BLOOD COUNT 3.48 10^6/uL (3.72-5.28); RED CELL DISTRIBUTION WIDTH 16.6 % (11.5-14.0)
[2017-03-01] MEDS: LANSOPRAZOLE 30 MG TAB.RAP.DR PO SCH ×2 (05:44→18:30)
[2017-03-01 05:54] LABS: ANION GAP 11 (5-19); BLOOD UREA NITROGEN 70 mg/dL (7-20); CALCIUM 9.2 mg/dL (8.4-10.2); CARBON DIOXIDE 30 mmol/L (22-30); CHLORIDE 93 mmol/L (98-107); CREATININE RESULT 2.27 mg/dL (0.52-1.25); GLUCOSE 184 mg/dL (75-110); POTASSIUM 3.8 mmol/L (3.6-5.0); SODIUM 133.8 mmol/L (137-145)
[2017-03-01 06:03] LABS: TROPONIN I 0.041 ng/mL
[2017-03-01] MEDS ORDERED: NORMAL SALINE 1000 ML 1,000 ML IV PRN (08:22)
[2017-03-01] MEDS: IPRATROPIUM/ALBUTEROL 0.5-2.5 MG/3 ML AMPUL NEB SCH ×3 (08:28→19:35)
[2017-03-01] MEDS ORDERED: MAGNESIUM 500 MG PO SCH (10:00)
[2017-03-01] MEDS ORDERED: CARVEDILOL 6.25 MG TABLET PO SCH ×2 (10:00→15:54)
[2017-03-01] MEDS ORDERED: FOLIC AC PO SCH (10:00)
[2017-03-01] MEDS ORDERED: VIT B6 PO SCH (10:00)
[2017-03-01] MEDS ORDERED: CYANOCOBALAMIN PO SCH (10:00)
[2017-03-01] MEDS ORDERED: (PENDING PHARMACY ID) (Bumetanide [Bumex 2 Mg Tablet] 2 MG) PO SCH (10:00)
[2017-03-01] MEDS: CYANOCOBALAMIN/FA/PYRIDOXINE TABLET PO SCH (10:54)
[2017-03-01] MEDS: BUMETANIDE 1 MG TABLET PO SCH ×2 (10:54→18:31)
[2017-03-01] MEDS: HEPARIN SOD (PORCINE) 5,000 UNIT/ML 1 ML SYRINGE SUBCUT SCH ×2 (10:54→21:41)
[2017-03-01] MEDS: PARICALCITOL 1 MCG CAPSULE PO SCH (10:55)
[2017-03-01] MEDS: TIOTROPIUM BROMIDE DPI 5 CAP/KIT (18 MCG/CAP) IH SCH (10:55)
[2017-03-01] MEDS: FUROSEMIDE INJ/PF 40 MG/4 ML SDV IV SCH ×2 (10:56→21:41)
[2017-03-01] MEDS: MAGNESIUM OXIDE 400 MG TABLET PO SCH (10:56)
[2017-03-01] MEDS: PREDNISONE 20 MG TABLET PO SCH (10:56)
[2017-03-01] MEDS: FOLIC ACID 1 MG TABLET PO SCH (10:56)
[2017-03-01] MEDS: ASPIRIN 81 MG TABLET, CHEWABLE PO SCH (10:57)
--- NOTE | 2017-03-01 13:26 | PDOC PROGRESS REPORT ---
Subjective Progress Note for:: 03/01/17 Subjective:: Pt is seen resting in bed comfortably, eating breakfast, with her family present. She reports that she is feel better this morning. She states that she wore the BiPAP overnight and "6 good hours of sleep at least." She denies cough, dyspnea, or orthopnea at present. She denies chest pain or palpitations. They have no questions or concerns today and ask about anticipated discharge date. Review of systems as above and is otherwise negative. Physical Exam Vital Signs: Temp Pulse Resp BP Pulse Ox 97.4 F 90 25 H 117/84 98 03/01/17 11:30 03/01/17 11:30 03/01/17 11:30 03/01/17 11:30 03/01/17 11:30 Intake & Output 02/28/17 03/01/17 03/02/17 06:59 06:59 06:59 Intake Total 782 592 Output Total 0 725 300 Balance 0 57 292 Weight 104.8 kg 112 kg General appearance: PRESENT: no acute distress, obese, well-developed, well- nourished Head exam: PRESENT: atraumatic, normocephalic Eye exam: PRESENT: conjunctiva pink, EOMI, PERRLA. ABSENT: scleral icterus Ear exam: PRESENT: normal external ear exam Mouth exam: PRESENT: moist, tongue midline Teeth exam: PRESENT: poor dentation Neck exam: ABSENT: carotid bruit, JVD, lymphadenopathy, thyromegaly Respiratory exam: PRESENT: clear to auscultation heather, symmetrical, unlabored, other - Supplemental oxygen at 4 lpm via NC. ABSENT: rales, rhonchi, wheezes Cardiovascular exam: PRESENT: irregular rhythm. ABSENT: diastolic murmur, rubs , systolic murmur Pulses: PRESENT: normal dorsalis pedis pul Vascular exam: PRESENT: normal capillary refill GI/Abdominal exam: PRESENT: normal bowel sounds, soft. ABSENT: distended, guarding, mass, organolmegaly, rebound, tenderness Rectal exam: PRESENT: deferred Extremities exam: PRESENT: full ROM. ABSENT: calf tenderness, clubbing, pedal edema Neurological exam: PRESENT: alert, awake, oriented to person, oriented to place , oriented to time, oriented to situation, CN II-XII grossly intact. ABSENT: motor sensory deficit Psychiatric exam: PRESENT: appropriate affect, normal mood. ABSENT: homicidal ideation, suicidal ideation Skin exam: PRESENT: dry, intact, warm. ABSENT: cyanosis, rash Results Laboratory Results: 03/01/17 05:11 03/01/17 05:11 03/01/17 03/01/17 05:11 05:11 WBC 11.0 H RBC 3.48 L Hgb 11.1 L Hct 32.1 L MCV 92 MCH 32.1 MCHC 34.8 RDW 16.6 H Plt Count 156 Sodium 133.8 L Potassium 3.8 Chloride 93 L Carbon Dioxide 30 Anion Gap 11 BUN 70 H Creatinine 2.27 H Est GFR ( Amer) 25 L Est GFR (Non-Af Amer) 21 L Glucose 184 H Calcium 9.2 02/28/17 02/28/17 02/28/17 04:01 17:50 23:00 Troponin I 0.055 0.046 0.046 NT-Pro-B Natriuret Pep 03/01/17 05:11 Troponin I 0.041 NT-Pro-B Natriuret Pep 32294 H Impressions: Chest X-Ray 02/27/17 17:42 IMPRESSION: Cardiomegaly with pulmonary edema. Lung Scan-VQ NM 02/28/17 01:01 IMPRESSION: PE absent (very low probability). Limitation. Assessment & Plan - Diagnosis (1) Acute on chronic respiratory failure with hypoxemia Is this a current diagnosis for this admission?: Yes Plan: Likely secondary to CHF exacerbation in the setting of COPD. Respiratory status has needed to improve. Now weaned to supplemental oxygen via NC; pt does have home O2. 1- BiPAP QHS and PRN 2- PRN duoneb and albuterol treatments 3- PO prednisone for COPD exacerbation 4- Will continue IV abx; narrow as cultures result. BC x2: NGTD (2) CHF exacerbation Qualifiers: Congestive heart failure type: unspecified congestive heart failure type Qualified Code(s): I50.9 - Heart failure, unspecified Is this a current diagnosis for this admission?: Yes Plan: Pro-BNP improving (80478--> [id number]). The pt is improved on subjective/clinical exam with improved respiratory function and resolution of BLE edema. Serial troponins remain indeterminately elevated, however, are stable and likely reflect her heart strain r/t CHF exacerbation in setting of chronic kidney disease. Low clinical suspicion of acute HI. 1- Appreciate Cardiology consultation 2- Resume home medications: Coreg, Bumex 3- Will hold IV lasix 4- Strict I&O and daily wt (3) COPD exacerbation Is this a current diagnosis for this admission?: Yes Plan: Improved. Plan as above: BiPAP and supplemental oxygen for support. PRN neb treatments. PO Prednisone. IV abx for presumptive pneumonia; will narrow as cultures result. 1- Resume home medication Breo 2- Will add scheduled Spiriva (4) New onset a-fib Is this a current diagnosis for this admission?: Yes Plan: A. fib of unknown duration. Recently had echocardiogram completed by outpatient chief green officer and was reviewed by Dr. Foss. 1- Appreciate cardiology consultation 2- Rate controlled with Coreg (home medication dose); HR 94-111 3- Reviewed recommendations for chronic anticoagulation with patient and family members who at this time declined the medication, stating that they will think about it overnight and discuss the risk and benefits amongst each other. (5) CKD (chronic kidney disease) stage 4, GFR 15-29 ml/min Is this a current diagnosis for this admission?: Yes Plan: Creatinine essentially stable at 2.20, did note a increase in BUN to 70 this a.m. likely reflecting strain r/t IV furosemide. Will provide gentle IV hydration and continue to monitor. 1- NS at 75 ml/hr x500 ml 2- Encouraged PO fluids; avoid salt 3- Avoid nephrotoxic medications (6) Diabetes mellitus type 2 in obese Is this a current diagnosis for this admission?: Yes Plan: Accuchecks with SSI coverage. Pt not currently on home medications for DM. A1C goal for pt of her age anf projected lifespan is < 8.0%. Review of record demonstrates A1C 6.1% in September 2016; pt at goal and will not require DM medication upon d/c. (7) Elevated troponin Is this a current diagnosis for this admission?: Yes Plan: Likely 2/2 heart strain related to CHF exacerbation in setting of CKD. Will trend serial enzymes. Appreciate cardiology consultation. (8) Elevated d-dimer Is this a current diagnosis for this admission?: Yes Plan: D-dimer elevated; likely incidental r/t reduced mobility. V/Q scan with very low probability of PE. No evidence of DVT on exam. (9) Hyponatremia Is this a current diagnosis for this admission?: Yes Plan: Mild. Will receive IV hydration today. Will monitor. - Time Time Spent with patient: 25-34 minutes Medications reviewed and adjusted accordingly: Yes Anticipated discharge: Home Within: within 72 hours
[2017-03-01] MEDS ORDERED: FLUTICASONE IH SCH (18:00)
[2017-03-01] MEDS ORDERED: VILANTEROL IH SCH (18:00)
[2017-03-01] MEDS ORDERED: (PENDING PHARMACY ID) (Melatonin/Pyridoxine Hcl (B6) [Melatonin 10 Mg Tablet] 10 MG) PO SCH (18:00)
[2017-03-01] MEDS: INSULIN LISPRO 100 UNIT/ML 3 ML VIAL SUBCUT PRN ×2 (18:29→22:31)
[2017-03-01] MEDS: SERTRALINE HCL 50 MG TABLET PO SCH (18:30)
--- NOTE | 2017-03-01 20:02 | PDOC PROGRESS REPORT ---
Subjective Progress Note for:: 03/01/17 Subjective:: Patient seems to be doing better with significant improvement. Patient was noted to be more alert. Pt is denying any chest arm or neck discomfort. Patient denying any PND, orthopnea. Patient denied any sustained palpitations, dizziness, syncope, near syncope. Patient denying any fever chills. Patient denying any other significant discomfort. Patient claims significant benefit after using bilevel therapy. Patient is maintaining atrial fibrillation but heart rate is well controlled. Review of systems: Rest review of systems negative. Medications: Medications have been reviewed. Physical Exam Vital Signs: Temp Pulse Resp BP Pulse Ox 97.7 F 107 H 19 133/88 H 99 03/01/17 15:12 03/01/17 19:37 03/01/17 19:37 03/01/17 18:46 03/01/17 19:37 Intake & Output 02/28/17 03/01/17 03/02/17 06:59 06:59 06:59 Intake Total 782 720 Output Total 0 725 600 Balance 0 57 120 Weight 104.8 kg 112 kg Exam: GENERAL: well-nourished and in no acute distress. Alert and oriented x2. Patient however reports marked general weakness and has not walked for last 3 days. HEAD: Atraumatic, normocephalic. EYES: Pupils equal round and reactive to light, extraocular movements intact, sclera anicteric, conjunctiva are normal. ENT: TMs normal, nares patent, oropharynx clear without exudates. Moist mucous membranes. No oral ulcerations or bleeding gums noted NECK: supple without lymphadenopathy. Trachea is central. No cervical or axillary lymphadenopathy noted. Carotids are 2+, JVD WNL LUNGS: Respiration seems nonlabored, no significant accessory muscle action noted. Breath sounds clear to auscultation bilaterally and equal noted. No wheezes rales or rhonchi noted. No significant dullness noted on percussion. CHEST: Palpation of the chest wall shows no significant chest wall tenderness. No other significant abnormalities noted. HEART: [place] [employer], No PSH, 1/6 CHE aortic area, 1/6 ley systolic murmur mitral area, no rubs, no gallops. ABDOMEN: Soft, no significant tenderness appreciated, normoactive bowel sounds. No guarding, no rebound. No rigidity noted . No masses appreciated. EXTREMITIES: Pedal pulses are 1-2+, no calf tenderness noted. No clubbing or cyanosis. 1+ pedal edema noted NEUROLOGICAL: Focused neurological exam showed no significant neurologic deficit. Normal speech, no focal weakness appreciated. PSYCH: Normal mood, normal affect. Judgment and insight within normal limits. SKIN: No significant ecchymosis, rash, ulcerations or signs of pruritus noted. MUSCULOSKELETAL EXAM: No significant joint swelling noted. General weakness reported. Results Laboratory Results: 03/01/17 05:11 03/01/17 05:11 03/01/17 03/01/17 05:11 05:11 WBC 11.0 H RBC 3.48 L Hgb 11.1 L Hct 32.1 L MCV 92 MCH 32.1 MCHC 34.8 RDW 16.6 H Plt Count 156 Sodium 133.8 L Potassium 3.8 Chloride 93 L Carbon Dioxide 30 Anion Gap 11 BUN 70 H Creatinine 2.27 H Est GFR ( Amer) 25 L Est GFR (Non-Af Amer) 21 L Glucose 184 H Calcium 9.2 02/28/17 02/28/17 02/28/17 04:01 17:50 23:00 Troponin I 0.055 0.046 0.046 NT-Pro-B Natriuret Pep 03/01/17 05:11 Troponin I 0.041 NT-Pro-B Natriuret Pep 55553 H EKG Comments: Telemetry strips shows atrial fibrillation with controlled ventricular response. Impressions: Chest X-Ray 02/27/17 17:42 IMPRESSION: Cardiomegaly with pulmonary edema. Lung Scan-VQ NM 02/28/17 01:01 IMPRESSION: PE absent (very low probability). Limitation. Assessment & Plan - Diagnosis (1) Acute on chronic respiratory failure with hypoxemia Is this a current diagnosis for this admission?: Yes (2) CHF exacerbation Qualifiers: Congestive heart failure type: unspecified congestive heart failure type Qualified Code(s): I50.9 - Heart failure, unspecified Is this a current diagnosis for this admission?: Yes (3) COPD exacerbation Is this a current diagnosis for this admission?: Yes (4) New onset a-fib Is this a current diagnosis for this admission?: Yes (5) Essential hypertension Is this a current diagnosis for this admission?: Yes - Notes Notes: Acute on chronic respiratory failure with hypoxemia by O2 sat monitoring: Possibly combination of COPD and CHF. Recommend diuretic therapy and oxygen supplementation and artificial ventilation. This condition is significantly improved. Patient was not noted to be in respiratory distress. CHF exacerbation: This is related to diastolic dysfunction and volume overload. Recent echocardiogram from few months ago was reviewed. COPD with exacerbation: Continue current management plans. New onset atrial fibrillation: Exact duration and onset is not clear by history. Recommend chronic anticoagulation at this point along with rate control. Patient would be a good candidate for chronic anticoagulation in view of prior history of CVA. Hypertension: Blood pressure under satisfactory control. History of cerebrovascular accident: Currently stable. Patient does not seem to have any significant residual deficit. However a full neurological exam was not performed. Patient's family in the room. Patient daughter recognized me from before. It seems that patient was seeing me in [place] before I moved to [place]. - Time Time with patient: 15-25 minutes - CODE STATUS : was discussed, patient remains DO NOT RESUSCITATE. Surrogate decision-maker unchanged. Multiple medical problems were addressed. More than 50% of the time spent coordinating care, discussing management plans with involved caregivers. Management plans discussed with involved personnels. Medical decision making was of moderate to high complexity, patient's has multiple comorbidities. Medications reviewed and adjusted accordingly: Yes
[2017-03-01] MEDS: CEFTRIAXONE 1 GM/D5W RTU 1 GM/50 ML RTUPB IV SCH (21:40)
[2017-03-01] MEDS: ATORVASTATIN CALCIUM 80 MG TABLET PO SCH (21:40)
[2017-03-01] MEDS: CARVEDILOL 12.5 MG TABLET PO SCH (21:41)
[2017-03-02 06:09] LABS: ANION GAP 11 (5-19); BLOOD UREA NITROGEN 77 mg/dL (7-20); CALCIUM 9.4 mg/dL (8.4-10.2); CARBON DIOXIDE 31 mmol/L (22-30); CHLORIDE 93 mmol/L (98-107); CREATININE RESULT 2.19 mg/dL (0.52-1.25); GLUCOSE 171 mg/dL (75-110); POTASSIUM 4.2 mmol/L (3.6-5.0); SODIUM 134.9 mmol/L (137-145)
[2017-03-02 06:11] LABS: HEMATOCRIT 32.8 % (36.0-47.0); HEMOGLOBIN 11.5 g/dL (12.0-15.5); HGB HCT DIFFERENCE 1.7; MEAN CORPUSCULAR HEMOGLOBIN 32.5 pg (27.0-33.4); MEAN CORPUSCULAR HGB CONC 34.9 g/dL (32.0-36.0); MEAN CORPUSCULAR VOLUME 93 fl (80-97); RED BLOOD COUNT 3.53 10^6/uL (3.72-5.28); RED CELL DISTRIBUTION WIDTH 16.6 % (11.5-14.0); WHITE BLOOD COUNT 10.1 10^3/uL (4.0-10.5)
[2017-03-02] MEDS: LANSOPRAZOLE 30 MG TAB.RAP.DR PO SCH ×2 (06:49→17:09)
[2017-03-02] MEDS: IPRATROPIUM/ALBUTEROL 0.5-2.5 MG/3 ML AMPUL NEB SCH ×3 (08:33→20:15)
[2017-03-02] MEDS: FUROSEMIDE INJ/PF 40 MG/4 ML SDV IV SCH ×2 (09:44→22:09)
[2017-03-02] MEDS: PREDNISONE 20 MG TABLET PO SCH (09:45)
[2017-03-02] MEDS: DIGOXIN 0.125 MG TABLET PO SCH (09:46)
[2017-03-02] MEDS: MAGNESIUM OXIDE 400 MG TABLET PO SCH (09:46)
[2017-03-02] MEDS: FOLIC ACID 1 MG TABLET PO SCH (09:46)
[2017-03-02] MEDS: BUMETANIDE 1 MG TABLET PO SCH ×2 (09:46→17:08)
[2017-03-02] MEDS: CARVEDILOL 12.5 MG TABLET PO SCH (09:46)
[2017-03-02] MEDS: PARICALCITOL 1 MCG CAPSULE PO SCH (09:46)
[2017-03-02] MEDS: TIOTROPIUM BROMIDE DPI 5 CAP/KIT (18 MCG/CAP) IH SCH (09:47)
[2017-03-02] MEDS: GUAIFENESIN SYRP 200 MG/10 ML UDC PO PRN ×2 (09:47→13:30)
[2017-03-02] MEDS: ASPIRIN 81 MG TABLET, CHEWABLE PO SCH (09:48)
[2017-03-02] MEDS: CYANOCOBALAMIN/FA/PYRIDOXINE TABLET PO SCH (09:48)
[2017-03-02] MEDS: INSULIN LISPRO 100 UNIT/ML 3 ML VIAL SUBCUT PRN ×3 (10:00→22:09)
[2017-03-02] MEDS ORDERED: DILTIAZEM HCL 30 MG TABLET PO ONE (10:30)
[2017-03-02] MEDS ORDERED: DILTIAZEM HCL INJ 25 MG/5 ML VIAL IV PRN ×2 (10:32→11:30)
[2017-03-02] MEDS ORDERED: POLYETHYLENE GLYCOL 3350 POWDER 17 GM/1 PACKET PO PRN (11:25)
[2017-03-02] MEDS: DILTIAZEM HCL 30 MG TABLET PO SCH ×2 (11:36→17:08)
--- NOTE | 2017-03-02 11:50 | PDOC PROGRESS REPORT ---
Subjective Progress Note for:: 03/02/17 Subjective:: Pt is seen resting in bed comfortably, eating breakfast, with her family present. She reports that she continues to feel improved, however, is noted to be more short of breath this AM. She is now wearing BiPAP only overnight and supplemental oxygen has been weaned to 3 lpm. Pt does wear home oxygen. She denies chest pain, palpitations, cough, and orthopnea at present. Discussed with pt and family recommendations for chronic anticoagulation in setting of a. fib and previous CVA. They are agreeable to starting Xarelto today. Additionally discussed goal of increasing patient's mobility, ideally should get OOB for meals. Pt and family are interested in discharge to SNF for continued physical therapy. Review of systems as above and is otherwise negative. Physical Exam Vital Signs: Temp Pulse Resp BP Pulse Ox 97.8 F 92 20 122/78 96 03/02/17 07:09 03/02/17 08:33 03/02/17 08:33 03/02/17 07:09 03/02/17 08:33 Intake & Output 03/01/17 03/02/17 03/03/17 06:59 06:59 06:59 Intake Total 782 774 Output Total 725 600 Balance 57 174 Weight 112 kg 111.1 kg General appearance: PRESENT: no acute distress, hard of hearing, obese, well- developed, well-nourished Head exam: PRESENT: atraumatic, normocephalic Eye exam: PRESENT: conjunctiva pink, EOMI, PERRLA. ABSENT: scleral icterus Ear exam: PRESENT: normal external ear exam Mouth exam: PRESENT: moist, tongue midline Teeth exam: PRESENT: edentulous, poor dentation Neck exam: ABSENT: carotid bruit, JVD, lymphadenopathy, thyromegaly Respiratory exam: PRESENT: clear to auscultation heather, decreased breath sounds - bibasilar, tachypnea. ABSENT: rales, rhonchi, wheezes Cardiovascular exam: PRESENT: RRR. ABSENT: diastolic murmur, rubs, systolic murmur Pulses: PRESENT: normal dorsalis pedis pul Vascular exam: PRESENT: normal capillary refill GI/Abdominal exam: PRESENT: normal bowel sounds, soft. ABSENT: distended, guarding, mass, organolmegaly, rebound, tenderness Rectal exam: PRESENT: deferred Extremities exam: PRESENT: full ROM. ABSENT: calf tenderness, clubbing, pedal edema Neurological exam: PRESENT: alert, awake, oriented to person, oriented to place , oriented to time, oriented to situation, CN II-XII grossly intact. ABSENT: motor sensory deficit Psychiatric exam: PRESENT: appropriate affect, normal mood. ABSENT: homicidal ideation, suicidal ideation Skin exam: PRESENT: dry, intact, warm. ABSENT: cyanosis, rash Results Laboratory Results: 03/02/17 04:17 03/02/17 04:17 03/02/17 03/02/17 04:17 04:17 WBC 10.1 RBC 3.53 L Hgb 11.5 L Hct 32.8 L MCV 93 MCH 32.5 MCHC 34.9 RDW 16.6 H Plt Count 182 Sodium 134.9 L Potassium 4.2 Chloride 93 L Carbon Dioxide 31 H Anion Gap 11 BUN 77 H Creatinine 2.19 H Est GFR ( Amer) 26 L Est GFR (Non-Af Amer) 22 L Glucose 171 H Calcium 9.4 02/28/17 02/28/17 02/28/17 04:01 17:50 23:00 Troponin I 0.055 0.046 0.046 NT-Pro-B Natriuret Pep 03/01/17 05:11 Troponin I 0.041 NT-Pro-B Natriuret Pep 06461 H Impressions: Chest X-Ray 02/27/17 17:42 IMPRESSION: Cardiomegaly with pulmonary edema. Lung Scan-VQ NM 02/28/17 01:01 IMPRESSION: PE absent (very low probability). Limitation. Assessment & Plan - Diagnosis (1) Acute on chronic respiratory failure with hypoxemia Is this a current diagnosis for this admission?: Yes Plan: Likely secondary to CHF exacerbation in the setting of COPD. Respiratory status has continued to improve. Now weaned to supplemental oxygen via [place]; pt does have home O2. BC x 2: NGTD 1- BiPAP QHS and PRN 2- PRN duoneb and albuterol treatments 3- PO prednisone for COPD exacerbation 4- Levaquin stopped 5- Will continue IV rocephin through tomorrow to allow for 3 days of coverage given pt was being treated for UTI as outpatient (2) CHF exacerbation Qualifiers: Congestive heart failure type: unspecified congestive heart failure type Qualified Code(s): I50.9 - Heart failure, unspecified Is this a current diagnosis for this admission?: Yes Plan: Pro-BNP improving ([id number]--> [id number]). The pt is improved on subjective/clinical exam with improved respiratory function and resolution of BLE edema. Serial troponins remain indeterminately elevated, however, are stable and likely reflect her heart strain r/t CHF exacerbation in setting of chronic kidney disease. Low clinical suspicion of acute AL. 1- Appreciate Cardiology consultation 2- Continue home medications: Coreg, Bumex 3- Will hold IV lasix 4- Strict I&O and daily wt (3) COPD exacerbation Is this a current diagnosis for this admission?: Yes Plan: Improved. Plan as above: BiPAP and supplemental oxygen for support. PRN neb treatments. PO Prednisone. 1- Resume home medication Breo 2- Continue Spiriva (4) New onset a-fib Is this a current diagnosis for this admission?: Yes Plan: A. fib of unknown duration. Recently had echocardiogram completed by outpatient trim machine operator and was reviewed by Dr. Foss. Tachycardic yesterday 110-120, improved today after starting digoxin 1- Appreciate cardiology consultation 2- Rate controlled with Coreg (home medication dose) 3- Addition of Digoxin yesterday evenining w/ improvement in HR 4- Start Xeralto; pt education and coupon cards provided to pt/family. (5) CKD (chronic kidney disease) stage 4, GFR 15-29 ml/min Is this a current diagnosis for this admission?: Yes Plan: Creatinine essentially stable at 2.20, BUN to 77 this a.m. likely reflecting strain r/t IV furosemide and decreased po intake. Encouraged pt to drink fluids ; was fluid restricted by outpatient nephrology to 1500ml 1- Encouraged PO fluids; avoid salt 2 - Avoid nephrotoxic medications (6) Diabetes mellitus type 2 in obese Is this a current diagnosis for this admission?: Yes Plan: Glucose elevated; likely increased r/t prednison. Pt not currently on home medications for DM. A1C goal for pt of her age anf projected lifespan is < 8.0%. Review of record demonstrates A1C 6.1% in September 2016; pt at goal and will not require DM medication upon d/c. 1- Consistent carb diet 2- Accuchecks and SSI 3- Appreciate RD consultation (7) Elevated troponin Is this a current diagnosis for this admission?: Yes Plan: Likely 2/2 heart strain related to CHF exacerbation in setting of CKD. Will trend serial enzymes. Appreciate cardiology consultation. (8) Elevated d-dimer Is this a current diagnosis for this admission?: Yes Plan: D-dimer elevated; likely incidental r/t reduced mobility. V/Q scan with very low probability of PE. No evidence of DVT on exam. (9) Hyponatremia Is this a current diagnosis for this admission?: Yes Plan: Mild. Will receive IV hydration today. Will monitor. (10) Weakness Is this a current diagnosis for this admission?: Yes Plan: 1- Increase mobility; up with assistance 2- OOB for meals 3- Appreciate PT/OT evaluation 4- Anticipate SNF for short term rehab/physical therapy at discharge - Time Time Spent with patient: 25-34 minutes Medications reviewed and adjusted accordingly: Yes Anticipated discharge: Acute Rehab Within: within 72 hours
[2017-03-02] MEDS ORDERED: INFLUENZA ADLT QUAD (36MOS+) 2017-18 VAC 0.5 ML SYR IM PRN (15:00)
[2017-03-02] MEDS ORDERED: BENZONATATE 100 MG CAPSULE PO PRN (15:25)
[2017-03-02] MEDS ORDERED: RIVAROXABAN 10 MG TABLET PO SCH (17:00)
[2017-03-02] MEDS: SERTRALINE HCL 50 MG TABLET PO SCH (17:09)
--- NOTE | 2017-03-02 19:44 | PDOC PROGRESS REPORT ---
Subjective Progress Note for:: 03/02/17 Subjective:: Patient seems to be doing better with significant improvement. Patient was noted to be more alert. Pt is denying any chest arm or neck discomfort. Patient denying any PND, orthopnea. Patient denied any sustained palpitations, dizziness, syncope, near syncope. Patient denying any fever chills. Patient denying any other significant discomfort. Patient noted to be wheezing. Patient is maintaining atrial fibrillation but heart rate is noted to be somewhat on the high side. Review of systems: Rest review of systems negative. Medications: Medications have been reviewed. Physical Exam Vital Signs: Temp Pulse Resp BP Pulse Ox 97.5 F 76 27 H 122/82 98 03/02/17 15:59 03/02/17 15:59 03/02/17 15:59 03/02/17 15:59 03/02/17 16:20 Intake & Output 03/01/17 03/02/17 03/03/17 06:59 06:59 06:59 Intake Total 782 774 680 Output Total 634 426 9309 Balance 57 174 -320 Weight 112 kg 111.1 kg Exam: GENERAL: well-nourished and in no acute distress. Alert and oriented x2 HEAD: Atraumatic, normocephalic. EYES: Pupils equal round and reactive to light, extraocular movements intact, sclera anicteric, conjunctiva are normal. ENT: TMs normal, nares patent, oropharynx clear without exudates. Moist mucous membranes. No oral ulcerations or bleeding gums noted NECK: supple without lymphadenopathy. Trachea is central. No cervical or axillary lymphadenopathy noted. Carotids are 2+, JVD WNL LUNGS: Respiration seems nonlabored, no significant accessory muscle action noted. Breath sounds clear to auscultation bilaterally and equal noted. No wheezes rales or rhonchi noted. No significant dullness noted on percussion. CHEST: Palpation of the chest wall shows no significant chest wall tenderness. No other significant abnormalities noted. HEART: [place] [employer] PILOT, No PSH, 1/6 CHE aortic area, 1/6 ley systolic murmur mitral area, no rubs, no gallops. ABDOMEN: Soft, no significant tenderness appreciated, normoactive bowel sounds. No guarding, no rebound. No rigidity noted . No masses appreciated. EXTREMITIES: Pedal pulses are 1-2+, no calf tenderness noted. No clubbing or cyanosis. 1+ pedal edema noted. NEUROLOGICAL: Focused neurological exam showed no significant neurologic deficit. Normal speech, no focal weakness appreciated. PSYCH: Normal mood, normal affect. Judgment and insight within normal limits. SKIN: No significant ecchymosis, rash, ulcerations or signs of pruritus noted. MUSCULOSKELETAL EXAM: No significant joint swelling noted. Results Laboratory Results: 03/02/17 04:17 03/02/17 04:17 03/02/17 03/02/17 04:17 04:17 WBC 10.1 RBC 3.53 L Hgb 11.5 L Hct 32.8 L MCV 93 MCH 32.5 MCHC 34.9 RDW 16.6 H Plt Count 182 Sodium 134.9 L Potassium 4.2 Chloride 93 L Carbon Dioxide 31 H Anion Gap 11 BUN 77 H Creatinine 2.19 H Est GFR ( Amer) 26 L Est GFR (Non-Af Amer) 22 L Glucose 171 H Calcium 9.4 02/28/17 02/28/17 02/28/17 04:01 17:50 23:00 Troponin I 0.055 0.046 0.046 NT-Pro-B Natriuret Pep 03/01/17 05:11 Troponin I 0.041 NT-Pro-B Natriuret Pep 01650 H Impressions: Chest X-Ray 02/27/17 17:42 IMPRESSION: Cardiomegaly with pulmonary edema. Lung Scan-VQ NM 02/28/17 01:01 IMPRESSION: PE absent (very low probability). Limitation. Assessment & Plan - Diagnosis (1) Acute on chronic respiratory failure with hypoxemia Is this a current diagnosis for this admission?: Yes (2) CHF exacerbation Qualifiers: Congestive heart failure type: unspecified congestive heart failure type Qualified Code(s): I50.9 - Heart failure, unspecified Is this a current diagnosis for this admission?: Yes (3) COPD exacerbation Is this a current diagnosis for this admission?: Yes (4) New onset a-fib Is this a current diagnosis for this admission?: Yes (5) Essential hypertension Is this a current diagnosis for this admission?: Yes - Notes Notes: Acute on chronic respiratory failure with hypoxemia by O2 sat monitoring: Possibly combination of COPD and CHF. Recommend diuretic therapy and oxygen supplementation and artificial ventilation. This condition is significantly improved. Patient was not noted to be in respiratory distress. CHF exacerbation: This is related to diastolic dysfunction and volume overload. Recent echocardiogram from few months ago was reviewed. COPD with exacerbation: Continue current management plans. Patient noted to be wheezing today. Patient has normal LVEF. Have therefore stopped carvedilol and placed patient on Cardizem 30 mg p.o. every 6. Will consider switching to long-acting tomorrow. New onset atrial fibrillation: Exact duration and onset is not clear by history. Recommend chronic anticoagulation at this point along with rate control. Patient would be a good candidate for chronic anticoagulation in view of prior history of CVA. Patient has agreed to go on Xarelto. However correct dose would be 15 mg. Hypertension: Blood pressure under satisfactory control. History of cerebrovascular accident: Currently stable. Patient does not seem to have any significant residual deficit. However a full neurological exam was not performed. Discussed management with patient's daughter.. - Time Time with patient: 15-25 minutes - CODE STATUS : was discussed, patient remains DO NOT RESUSCITATE. Surrogate decision-maker unchanged. Multiple medical problems were addressed. More than 50% of the time spent coordinating care, discussing management plans with involved caregivers. Management plans discussed with involved personnels. Medical decision making was of moderate to high complexity, patient's has multiple comorbidities. Medications reviewed and adjusted accordingly: Yes
[2017-03-02] MEDS: CEFTRIAXONE 1 GM/D5W RTU 1 GM/50 ML RTUPB IV SCH (22:09)
[2017-03-02] MEDS: ATORVASTATIN CALCIUM 80 MG TABLET PO SCH (22:09)
[2017-03-03] MEDS: DILTIAZEM HCL 30 MG TABLET PO SCH ×5 (00:59→23:22)
[2017-03-03] MEDS ORDERED: LIDOCAINE 0.5% INJ-PF (5 MG/ML) 50 ML SDV SUBCUT PRN (05:00)
[2017-03-03] MEDS ORDERED: LACTATED RINGERS 1000 ML IV PRN (05:00)
[2017-03-03 05:44] LABS: ANION GAP 10 (5-19); BLOOD UREA NITROGEN 87 mg/dL (7-20); CALCIUM 10.2 mg/dL (8.4-10.2); CARBON DIOXIDE 33 mmol/L (22-30); CHLORIDE 93 mmol/L (98-107); CREATININE RESULT 2.16 mg/dL (0.52-1.25); GLUCOSE 178 mg/dL (75-110); POTASSIUM 4.2 mmol/L (3.6-5.0); SODIUM 136.3 mmol/L (137-145)
[2017-03-03] MEDS: LANSOPRAZOLE 30 MG TAB.RAP.DR PO SCH ×2 (05:47→17:06)
[2017-03-03] MEDS: IPRATROPIUM/ALBUTEROL 0.5-2.5 MG/3 ML AMPUL NEB SCH ×3 (08:27→20:07)
[2017-03-03] MEDS: FUROSEMIDE 40 MG TABLET PO SCH (09:49)
[2017-03-03] MEDS: PARICALCITOL 1 MCG CAPSULE PO SCH (09:49)
[2017-03-03] MEDS: DIGOXIN 0.125 MG TABLET PO SCH (09:49)
[2017-03-03] MEDS: MAGNESIUM OXIDE 400 MG TABLET PO SCH (09:50)
[2017-03-03] MEDS: PREDNISONE 20 MG TABLET PO SCH (09:50)
[2017-03-03] MEDS: FUROSEMIDE 80 MG TABLET PO SCH (09:50)
[2017-03-03] MEDS: FOLIC ACID 1 MG TABLET PO SCH (09:50)
[2017-03-03] MEDS: TIOTROPIUM BROMIDE DPI 5 CAP/KIT (18 MCG/CAP) IH SCH (09:56)
[2017-03-03] MEDS: CYANOCOBALAMIN/FA/PYRIDOXINE TABLET PO SCH (09:56)
--- NOTE | 2017-03-03 11:10 | PDOC PROGRESS REPORT ---
Subjective Progress Note for:: 03/03/17 Subjective:: Pt is seen resting in bed comfortably with her family present. She is now wearing BiPAP only overnight and supplemental oxygen has been weaned to 3 lpm. Pt does wear home oxygen. She reports that her dyspnea has continued to improve and that she is no longer short of breath while eating or talking, though does remain fatigued. She did develop a nonproductive cough yesterday that has responded well to tessalon perles. She denies chest pain, palpitations, and orthopnea at present. Review of systems as above and is otherwise negative. Physical Exam Vital Signs: Temp Pulse Resp BP Pulse Ox 97.9 F 99 18 114/66 98 03/03/17 07:20 03/03/17 08:27 03/03/17 08:27 03/03/17 07:20 03/03/17 08:27 Intake & Output 03/02/17 03/03/17 03/04/17 06:59 06:59 06:59 Intake Total 774 730 Output Total 600 1000 Balance 174 -270 Weight 111.1 kg 113.3 kg General appearance: PRESENT: no acute distress, hard of hearing, obese, well- developed, well-nourished Head exam: PRESENT: atraumatic, normocephalic Eye exam: PRESENT: conjunctiva pink, EOMI, PERRLA. ABSENT: scleral icterus Ear exam: PRESENT: normal external ear exam Mouth exam: PRESENT: moist, tongue midline Teeth exam: PRESENT: edentulous, poor dentation Neck exam: ABSENT: carotid bruit, JVD, lymphadenopathy, thyromegaly Respiratory exam: PRESENT: clear to auscultation heather, symmetrical, unlabored, wheezes - Expiratory wheeze throughout.. ABSENT: rales, rhonchi, tachypnea Cardiovascular exam: PRESENT: irregular rhythm, RRR. ABSENT: diastolic murmur, rubs, systolic murmur, tachycardia Pulses: PRESENT: normal dorsalis pedis pul Vascular exam: PRESENT: normal capillary refill GI/Abdominal exam: PRESENT: normal bowel sounds, soft. ABSENT: distended, guarding, mass, organolmegaly, rebound, tenderness Rectal exam: PRESENT: deferred Extremities exam: PRESENT: full ROM. ABSENT: calf tenderness, clubbing, pedal edema Neurological exam: PRESENT: alert, awake, oriented to person, oriented to place , oriented to time, oriented to situation, CN II-XII grossly intact. ABSENT: motor sensory deficit Psychiatric exam: PRESENT: appropriate affect, normal mood. ABSENT: homicidal ideation, suicidal ideation Skin exam: PRESENT: dry, intact, warm. ABSENT: cyanosis, rash Results Laboratory Results: 03/02/17 04:17 03/03/17 05:11 03/03/17 05:11 Sodium 136.3 L Potassium 4.2 Chloride 93 L Carbon Dioxide 33 H Anion Gap 10 BUN 87 H Creatinine 2.16 H Est GFR ( Amer) 26 L Est GFR (Non-Af Amer) 22 L Glucose 178 H Calcium 10.2 02/28/17 02/28/17 02/28/17 04:01 17:50 23:00 Troponin I 0.055 0.046 0.046 NT-Pro-B Natriuret Pep 03/01/17 03/03/17 05:11 05:11 Troponin I 0.041 NT-Pro-B Natriuret Pep 81073 H 51119 H Impressions: Chest X-Ray 02/27/17 17:42 IMPRESSION: Cardiomegaly with pulmonary edema. Lung Scan-VQ NM 02/28/17 01:01 IMPRESSION: PE absent (very low probability). Limitation. Assessment & Plan - Diagnosis (1) Acute on chronic respiratory failure with hypoxemia Is this a current diagnosis for this admission?: Yes Plan: Likely secondary to CHF exacerbation in the setting of COPD. Respiratory status has continued to improve. Now weaned to supplemental oxygen via NC; pt does have home O2. BC x 2: NGTD 1- BiPAP QHS and PRN 2- PRN duoneb and albuterol treatments 3- Steroids for COPD exacerbation 4- Will obtain CXR today, as pt has developed a cough and has increased wheezing on exam (2) CHF exacerbation Qualifiers: Congestive heart failure type: unspecified congestive heart failure type Qualified Code(s): I50.9 - Heart failure, unspecified Is this a current diagnosis for this admission?: Yes Plan: Pro-BNP improving (08741--> 01263--> 1600). The pt is improved on subjective/ clinical exam with improved respiratory function and resolution of BLE edema. Serial troponins remained indeterminately elevated, however, are stable and likely reflect her heart strain r/t CHF exacerbation in setting of chronic kidney disease. Low clinical suspicion of acute [place]. 1- Appreciate Cardiology consultation 2- Continue home medications: Coreg 3- Transition to PO Lasix today; bumex discontinued as family stated that home med list was incorrect and wish her to resume lasix on discharge 4- Strict I&O and daily wt (3) COPD exacerbation Is this a current diagnosis for this admission?: Yes Plan: Improved. Plan as above: BiPAP and supplemental oxygen for support. PRN neb treatments. PO Prednisone. 1- Resume home medication Breo 2- Continue Spiriva 3- Will obtain CXR today as pt has developed worsening wheeze and a cough; will need to consider escalation of steroid therapy (4) New onset a-fib Is this a current diagnosis for this admission?: Yes Plan: A. fib of unknown duration. Recently had echocardiogram completed by outpatient settlement worker and was reviewed by Dr. Foss. Tachycardia has resolved. 1- Appreciate cardiology consultation 2- Rate controlled with Coreg and Digoxin 3- Xeralto; pt education and coupon cards provided to pt/family. (5) CKD (chronic kidney disease) stage 4, GFR 15-29 ml/min Is this a current diagnosis for this admission?: Yes Plan: Creatinine essentially stable at 2.20. Encouraged pt to drink fluids; was fluid restricted by outpatient nephrology to 1500ml 1- Encouraged PO fluids; avoid salt 2 - Avoid nephrotoxic medications (6) Diabetes mellitus type 2 in obese Is this a current diagnosis for this admission?: Yes Plan: Glucose elevated; likely increased r/t prednison. Pt not currently on home medications for DM. A1C goal for pt of her age anf projected lifespan is < 8.0%. Review of record demonstrates A1C 6.1% in September 2016; pt at goal and will not require DM medication upon d/c. 1- Consistent carb diet 2- Accuchecks 3- Lantus qHS and SSI 3- Appreciate RD consultation (7) Elevated troponin Is this a current diagnosis for this admission?: Yes Plan: Likely 2/2 heart strain related to CHF exacerbation in setting of CKD. Appreciate cardiology consultation. (8) Elevated d-dimer Is this a current diagnosis for this admission?: Yes Plan: D-dimer elevated; likely incidental r/t reduced mobility. V/Q scan with very low probability of PE. No evidence of DVT on exam. (9) Hyponatremia Is this a current diagnosis for this admission?: Yes Plan: Mild and gradually improving. Will monitor. (10) Weakness Is this a current diagnosis for this admission?: Yes Plan: 1- Increase mobility; up with assistance 2- OOB for meals 3- Appreciate PT/OT evaluation 4- Anticipate SNF for short term rehab/physical therapy at discharge - Time Time Spent with patient: 35 or more minutes Medications reviewed and adjusted accordingly: Yes Anticipated discharge: SNF Within: within 72 hours
--- NOTE | 2017-03-03 11:15 | PDOC PROGRESS REPORT ---
Subjective Progress Note for:: 03/03/17 Subjective:: Patient seems to be doing better with significant improvement. Patient was noted to be more alert. Pt is denying any chest arm or neck discomfort. Patient denying any PND, orthopnea. Patient denied any sustained palpitations, dizziness, syncope, near syncope. Patient denying any fever chills. Patient denying any other significant discomfort. Wheezing seems to be better. Patient is maintaining atrial fibrillation, reasonably controlled but heart rate is noted to be somewhat on the high side. Review of systems: Rest review of systems negative. Medications: Medications have been reviewed. Physical Exam Vital Signs: Temp Pulse Resp BP Pulse Ox 97.9 F 99 18 114/66 98 03/03/17 07:20 03/03/17 08:27 03/03/17 08:27 03/03/17 07:20 03/03/17 08:27 Intake & Output 03/02/17 03/03/17 03/04/17 06:59 06:59 06:59 Intake Total 774 730 Output Total 600 1000 Balance 174 -270 Weight 111.1 kg 113.3 kg Exam: GENERAL: well-nourished and in no acute distress. Alert and oriented x2 HEAD: Atraumatic, normocephalic. EYES: Pupils equal round and reactive to light, extraocular movements intact, sclera anicteric, conjunctiva are normal. ENT: TMs normal, nares patent, oropharynx clear without exudates. Moist mucous membranes. No oral ulcerations or bleeding gums noted NECK: supple without lymphadenopathy. Trachea is central. No cervical or axillary lymphadenopathy noted. Carotids are 2+, JVD WNL LUNGS: Respiration seems nonlabored, no significant accessory muscle action noted. Breath sounds clear to auscultation bilaterally and equal noted. No wheezes rales or rhonchi noted. No significant dullness noted on percussion. CHEST: Palpation of the chest wall shows no significant chest wall tenderness. No other significant abnormalities noted. HEART: [facility] [employer], No PSH, 1/6 CHE aortic area, 1/6 ley systolic murmur mitral area, no rubs, no gallops. ABDOMEN: Soft, no significant tenderness appreciated, normoactive bowel sounds. No guarding, no rebound. No rigidity noted . No masses appreciated. EXTREMITIES: Pedal pulses are 1-2+, no calf tenderness noted. No clubbing or cyanosis. 1+ pedal edema noted NEUROLOGICAL: Focused neurological exam showed no significant neurologic deficit. Normal speech, no focal weakness appreciated. PSYCH: Normal mood, normal affect. Judgment and insight within normal limits. SKIN: No significant ecchymosis, rash, ulcerations or signs of pruritus noted. MUSCULOSKELETAL EXAM: No significant joint swelling noted. Results Laboratory Results: 03/02/17 04:17 03/03/17 05:11 03/03/17 05:11 Sodium 136.3 L Potassium 4.2 Chloride 93 L Carbon Dioxide 33 H Anion Gap 10 BUN 87 H Creatinine 2.16 H Est GFR ( Amer) 26 L Est GFR (Non-Af Amer) 22 L Glucose 178 H Calcium 10.2 02/28/17 02/28/17 02/28/17 04:01 17:50 23:00 Troponin I 0.055 0.046 0.046 NT-Pro-B Natriuret Pep 03/01/17 03/03/17 05:11 05:11 Troponin I 0.041 NT-Pro-B Natriuret Pep 80519 H 77137 H Impressions: Chest X-Ray 02/27/17 17:42 IMPRESSION: Cardiomegaly with pulmonary edema. Lung Scan-VQ NM 02/28/17 01:01 IMPRESSION: PE absent (very low probability). Limitation. Assessment & Plan - Diagnosis (1) Acute on chronic respiratory failure with hypoxemia Is this a current diagnosis for this admission?: Yes (2) CHF exacerbation Qualifiers: Congestive heart failure type: unspecified congestive heart failure type Qualified Code(s): I50.9 - Heart failure, unspecified Is this a current diagnosis for this admission?: Yes (3) COPD exacerbation Is this a current diagnosis for this admission?: Yes (4) New onset a-fib Is this a current diagnosis for this admission?: Yes (5) Essential hypertension Is this a current diagnosis for this admission?: Yes (7) CKD (chronic kidney disease) stage 4, GFR 15-29 ml/min Is this a current diagnosis for this admission?: Yes - Notes Notes: Acute on chronic respiratory failure with hypoxemia by O2 sat monitoring: Possibly combination of COPD and CHF. Recommend diuretic therapy and oxygen supplementation and noninvasive positive pressure ventilation. This condition is significantly improved. Patient was not noted to be in respiratory distress. CHF exacerbation: This is related to diastolic dysfunction and volume overload. Recent echocardiogram from few months ago was reviewed. COPD with exacerbation: Continue current management plans. Patient noted to be wheezing today. Patient has normal LVEF. Have therefore stopped carvedilol and today increased Cardizem CD to 120 p.o. twice daily. New onset atrial fibrillation: Exact duration and onset is not clear by history. Recommend chronic anticoagulation at this point along with rate control. Patient would be a good candidate for chronic anticoagulation in view of prior history of CVA. Chart review shows that patient is over 80 and has significant chronic renal dysfunction therefore have switched patient to Eliquis at 2.5 mg p.o. twice daily. Hypertension: Blood pressure under satisfactory control. History of cerebrovascular accident: Currently stable. Patient does not seem to have any significant residual deficit. Discussed management with patient's daughter. - Time Time with patient: 15-25 minutes - CODE STATUS : was discussed, patient remains DO NOT RESUSCITATE. Surrogate decision-maker unchanged. Multiple medical problems were addressed. More than 50% of the time spent coordinating care, discussing management plans with involved caregivers. Management plans discussed with involved personnels. Medical decision making was of moderate to high complexity, patient's has multiple comorbidities. Medications reviewed and adjusted accordingly: Yes
[2017-03-03] MEDS ORDERED: DILTIAZEM HCL 120 MG CAP.SR.24H PO ONE (12:00)
--- NOTE | 2017-03-03 15:12 | RADIOLOGY REPORT (SQ) ---
EXAM DESCRIPTION: CHEST PA/LAT COMPLETED DATE/TIME: 03/03/2017 2:51 pm REASON FOR STUDY: dyspnea, wheezing COMPARISON: 08/12/2014 EXAM PARAMETERS: NUMBER OF VIEWS: two views TECHNIQUE: Digital Frontal and Lateral radiographic views of the chest acquired. RADIATION DOSE: NA LIMITATIONS: none FINDINGS: LUNGS AND PLEURA: Mild pulmonary edema is suggested. MEDIASTINUM AND HILAR STRUCTURES: No masses or contour abnormalities. HEART AND VASCULAR STRUCTURES: Cardiomegaly. BONES: No acute findings. HARDWARE: None in the chest. OTHER: No other significant finding. IMPRESSION: Cardiomegaly with mild pulmonary edema. TECHNICAL DOCUMENTATION: JOB ID: [id number] [employer]- All Rights Reserved
[2017-03-03] MEDS: INSULIN LISPRO 100 UNIT/ML 3 ML VIAL SUBCUT PRN ×2 (17:05→23:21)
[2017-03-03] MEDS: SERTRALINE HCL 50 MG TABLET PO SCH (17:06)
[2017-03-03] MEDS: APIXABAN 2.5 MG TABLET PO SCH (17:07)
[2017-03-03] MEDS ORDERED: DILTIAZEM HCL 120 MG CAP.SR.24H PO SCH (22:00)
[2017-03-03] MEDS: INSULIN GLARGINE,HUM.REC.ANLOG 300 UNIT/3 ML INSULN.PEN SUBCUT SCH (23:21)
[2017-03-03] MEDS: ATORVASTATIN CALCIUM 80 MG TABLET PO SCH (23:22)
[2017-03-04 05:45] LABS: ANION GAP 7 (5-19); BLOOD UREA NITROGEN 82 mg/dL (7-20); CALCIUM 10.1 mg/dL (8.4-10.2); CARBON DIOXIDE 36 mmol/L (22-30); CHLORIDE 93 mmol/L (98-107); CREATININE RESULT 2.03 mg/dL (0.52-1.25); DIGOXIN 0.69 ng/mL (0.8-2.0); GLUCOSE 170 mg/dL (75-110); POTASSIUM 4.3 mmol/L (3.6-5.0); SODIUM 136.2 mmol/L (137-145)
[2017-03-04] MEDS: DILTIAZEM HCL 30 MG TABLET PO SCH ×4 (06:30→23:15)
[2017-03-04] MEDS: LANSOPRAZOLE 30 MG TAB.RAP.DR PO SCH ×2 (06:30→17:01)
[2017-03-04] MEDS: IPRATROPIUM/ALBUTEROL 0.5-2.5 MG/3 ML AMPUL NEB SCH ×3 (08:43→20:49)
[2017-03-04] MEDS: FUROSEMIDE 80 MG TABLET PO SCH (10:42)
[2017-03-04] MEDS: DIGOXIN 0.125 MG TABLET PO SCH (10:42)
[2017-03-04] MEDS: TIOTROPIUM BROMIDE DPI 5 CAP/KIT (18 MCG/CAP) IH SCH (10:42)
[2017-03-04] MEDS: MAGNESIUM OXIDE 400 MG TABLET PO SCH (10:42)
[2017-03-04] MEDS: GUAIFENESIN SYRP 200 MG/10 ML UDC PO PRN (10:42)
[2017-03-04] MEDS: APIXABAN 2.5 MG TABLET PO SCH ×2 (10:43→17:01)
[2017-03-04] MEDS: CYANOCOBALAMIN/FA/PYRIDOXINE TABLET PO SCH (10:43)
[2017-03-04] MEDS: PREDNISONE 20 MG TABLET PO SCH (10:43)
[2017-03-04] MEDS: FOLIC ACID 1 MG TABLET PO SCH (10:43)
--- NOTE | 2017-03-04 10:50 | PDOC PROGRESS REPORT ---
Subjective Progress Note for:: 03/04/17 Subjective:: Pt is seen resting in bed comfortably with her family present. She is now wearing BiPAP only overnight and supplemental oxygen has been weaned to 3 lpm. Pt does wear home oxygen. She states that she is feeling significantly better; she is conversational without dyspnea. She states that her fatigue has improved and that she is "beginning to feel more like myself." She continues to have a nonproductive cough that has responds well to tessalon perles and robitussin. She has been working PT/OT and is proud to have ambulated 7 steps yesterday. Plan is to d/c for skilled rehab when bed is available. She denies chest pain, palpitations, dyspnea and orthopnea at present. Review of systems as above and is otherwise negative. Physical Exam Vital Signs: Temp Pulse Resp BP Pulse Ox 97.3 F 72 16 121/55 L 97 03/04/17 07:31 03/04/17 08:00 03/04/17 08:00 03/04/17 07:31 03/04/17 08:00 Intake & Output 03/03/17 03/04/17 03/05/17 06:59 06:59 06:59 Intake Total 730 1251 Output Total 1000 400 Balance -270 851 Weight 113.3 kg 111 kg General appearance: PRESENT: no acute distress, hard of hearing, obese, well- developed, well-nourished Head exam: PRESENT: atraumatic, normocephalic Eye exam: PRESENT: conjunctiva pink, EOMI, PERRLA. ABSENT: scleral icterus Ear exam: PRESENT: normal external ear exam Mouth exam: PRESENT: moist, tongue midline Neck exam: ABSENT: carotid bruit, JVD, lymphadenopathy, thyromegaly Respiratory exam: PRESENT: clear to auscultation heather, symmetrical, unlabored, other - supplemental oxygen via NC. ABSENT: rales, rhonchi, tachypnea, wheezes Cardiovascular exam: PRESENT: irregular rhythm, RRR. ABSENT: diastolic murmur, rubs, systolic murmur, tachycardia Pulses: PRESENT: normal dorsalis pedis pul Vascular exam: PRESENT: normal capillary refill GI/Abdominal exam: PRESENT: normal bowel sounds, soft. ABSENT: distended, guarding, mass, organolmegaly, rebound, tenderness Rectal exam: PRESENT: deferred Extremities exam: PRESENT: full ROM. ABSENT: calf tenderness, clubbing, pedal edema Neurological exam: PRESENT: alert, awake, oriented to person, oriented to place , oriented to time, oriented to situation, CN II-XII grossly intact. ABSENT: motor sensory deficit Psychiatric exam: PRESENT: appropriate affect, normal mood. ABSENT: homicidal ideation, suicidal ideation Skin exam: PRESENT: dry, intact, warm. ABSENT: cyanosis, rash Results Laboratory Results: 03/02/17 04:17 03/04/17 04:38 03/04/17 04:38 Sodium 136.2 L Potassium 4.3 Chloride 93 L Carbon Dioxide 36 H Anion Gap 7 BUN 82 H Creatinine 2.03 H Est GFR ( Amer) 28 L Est GFR (Non-Af Amer) 24 L Glucose 170 H Calcium 10.1 02/28/17 02/28/17 02/28/17 04:01 17:50 23:00 Troponin I 0.055 0.046 0.046 NT-Pro-B Natriuret Pep 03/01/17 03/03/17 05:11 05:11 Troponin I 0.041 NT-Pro-B Natriuret Pep 01497 H 57835 H Impressions: Lung Scan-VQ NM 02/28/17 01:01 IMPRESSION: PE absent (very low probability). Limitation. Chest X-Ray 03/03/17 00:00 IMPRESSION: Cardiomegaly with mild pulmonary edema. Assessment & Plan - Diagnosis (1) Weakness Is this a current diagnosis for this admission?: Yes Plan: Pt stable for d/c to rehab when bed is available. 1- Increase mobility; up with assistance 2- OOB for meals 3- Appreciate PT/OT evaluation 4- Anticipate SNF for short term rehab/physical therapy at discharge (2) Acute on chronic respiratory failure with hypoxemia Is this a current diagnosis for this admission?: Yes Plan: Resolved. Likely secondary to CHF exacerbation in the setting of COPD. Respiratory status has continued to improve. Now weaned to supplemental oxygen via NC; pt does have home O2. BC x 2: NGTD. Repeat CXR yesterday shows mild pulmonary edema; improved from previous. Wheezing has resolved. 1- BiPAP QHS and PRN 2- PRN duoneb and albuterol treatments 3- Steroids for COPD exacerbation (3) CHF exacerbation Qualifiers: Congestive heart failure type: unspecified congestive heart failure type Qualified Code(s): I50.9 - Heart failure, unspecified Is this a current diagnosis for this admission?: Yes Plan: Pro-BNP improving (57219--> 89238--> 1600). The pt is improved on subjective/ clinical exam with improved respiratory function and resolution of BLE edema. Serial troponins remained indeterminately elevated, however, are stable and likely reflect her heart strain r/t CHF exacerbation in setting of chronic kidney disease. Low clinical suspicion of acute [place]. 1- Appreciate Cardiology consultation 2- Medication adjustments per cardiology; continue diltiazem and digoxin, coreg discontinued 3- Continue PO Lasix 4- Strict I&O and daily wt (4) COPD exacerbation Is this a current diagnosis for this admission?: Yes Plan: Improved. Plan as above: BiPAP and supplemental oxygen for support. PRN neb treatments. PO Prednisone. Repeat CXR is improved from previous; wheezing has resolved. 1- Resume home medication Breo 2- Continue Spiriva (5) New onset a-fib Is this a current diagnosis for this admission?: Yes Plan: A. fib of unknown duration. Recently had echocardiogram completed by outpatient electrical assembly supervisor and was reviewed by Dr. Foss. Tachycardia has resolved. 1- Appreciate cardiology consultation 2- Diltiazem and Digoxin 3- Eliquis; changed from xeralto 2/2 renal function (6) CKD (chronic kidney disease) stage 4, GFR 15-29 ml/min Is this a current diagnosis for this admission?: Yes Plan: Creatinine essentially stable at 2.20. Encouraged pt to drink fluids; was fluid restricted by outpatient nephrology to 1500ml 1- Encouraged PO fluids; avoid salt 2 - Avoid nephrotoxic medications (7) Diabetes mellitus type 2 in obese Is this a current diagnosis for this admission?: Yes Plan: Glucose elevated; likely increased r/t prednison. Pt not currently on home medications for DM. A1C goal for pt of her age anf projected lifespan is < 8.0%. Review of record demonstrates A1C 6.1% in September 2016; pt at goal and will not require DM medication upon d/c. 1- Consistent carb diet 2- Accuchecks 3- Lantus qHS and SSI 3- Appreciate RD consultation (8) Elevated troponin Is this a current diagnosis for this admission?: Yes Plan: Likely 2/2 heart strain related to CHF exacerbation in setting of CKD. Appreciate cardiology consultation. (9) Elevated d-dimer Is this a current diagnosis for this admission?: Yes Plan: D-dimer elevated; likely incidental r/t reduced mobility. V/Q scan with very low probability of PE. No evidence of DVT on exam. (10) Hyponatremia Is this a current diagnosis for this admission?: Yes Plan: Mild and gradually improving. Will monitor. - Time Time Spent with patient: 25-34 minutes Medications reviewed and adjusted accordingly: Yes Anticipated discharge: Acute Rehab Within: within 48 hours
[2017-03-04] MEDS: FUROSEMIDE 40 MG TABLET PO SCH ×2 (10:53→14:53)
[2017-03-04] MEDS: INSULIN LISPRO 100 UNIT/ML 3 ML VIAL SUBCUT PRN ×3 (12:03→22:47)
[2017-03-04] MEDS: SERTRALINE HCL 50 MG TABLET PO SCH (17:01)
[2017-03-04] MEDS: INSULIN GLARGINE,HUM.REC.ANLOG 300 UNIT/3 ML INSULN.PEN SUBCUT SCH (22:47)
[2017-03-04] MEDS: ATORVASTATIN CALCIUM 80 MG TABLET PO SCH (22:47)
--- NOTE | 2017-03-04 22:48 | PROGRESS NOTE E ---
Progress Note NAME: BETH YOUNG : 1935 AGE: 81Y DATE: 03/04/2017 ROOM: 331 SUBJECTIVE: Note that the patient seems to be improved, much better. She denies any chest pain or discomfort. There is no PND or orthopnea. She denies any palpitations also. Atrial fibrillation is now controlled ventricular response. She denies any dizziness or syncope or near syncope. There is no wheezing at present. Yesterday she was able to ambulate about 7 feet and is very proud of that. REVIEW OF SYSTEMS: The rest of the review of systems are negative. MEDICATIONS: Have been reviewed. OBJECTIVE: GENERAL: On examination the patient is moderately obese, in no acute distress. Continues to be in atrial fibrillation. She also seems to have some dry cough which is controlled with Tessalon Perles. VITAL SIGNS: She is afebrile with a temperature of 97.6 degrees Fahrenheit, pulse is 82 beats per minute, respirations are 20 per minute, O2 saturations are 96% on 4 L nasal cannula, blood pressure is well-controlled at 129/60. HEENT: Head is atraumatic, normocephalic. Eyes: Pupils are equal, round and regular, reactive to light and accommodation. Extraocular movements are intact. There is no conjunctival pallor. There is no scleral icterus. Ears: Tympanic membranes are normal. Nares are patent without any inflammation of the nasal mucous membranes. Oropharynx is clear without exudates. Moist mucous membranes. There are no ulcers in the mouth and no bleeding from the gums. NECK: Supple. There is no JVD. There is no lymphadenopathy. There is no goiter. Carotids are equal and 2+. Trachea is central. LUNGS: At present show diminished air entry, prolonged expiration without any rhonchi, rales or wheezing. HEART: S1 and S2 is heard. S1 is of variable intensity. There is no S3 gallop. There is no S4 gallop. There is a systolic murmur in the mitral area. There are no rubs. ABDOMEN: Soft, slightly obese. There are no tender areas. There is no hepatosplenomegaly. Bowel sounds are well heard. EXTREMITIES: Pedal pulses are 1 to 2+. There is no calf tenderness noted. There is no clubbing or cyanosis. There is 1- pedal edema bilaterally. NEUROLOGICAL: The patient is conscious, awake, oriented x3 with no focal deficits. PSYCHIATRIC: The patient's judgment and insight are intact. Her affect is normal. INTAKE AND OUTPUT: The patient's 24 hour intake is 1251 mL, output is only 400 mL. LABORATORY DATA: The patient's sodium is 136.2, potassium 4.3, chloride is 93, CO2 is 36. The patient's BUN is 82, creatinine is 0.03, GFR is reduced at 24 which is chronic disease stage 4. Her glucose is 170. Her calcium is 10.1. IMPRESSION: 1. ACUTE ON CHRONIC RESPIRATORY FAILURE WITH HYPOXEMIA, AT PRESENT O2 SATS ARE GOOD ON 4 L NASAL CANNULA. 2. CONGESTIVE HEART FAILURE MOST LIKELY A COMBINATION OF ATRIAL FIBRILLATION AND DIASTOLIC DYSFUNCTION AND VOLUME OVERLOAD DUE TO CHRONIC KIDNEY DISEASE. 3. COPD EXACERBATION SEEMS TO BE GETTING BETTER. 4. NEW ONSET ATRIAL FIBRILLATION. 5. ESSENTIAL HYPERTENSION, BLOOD PRESSURE IS WELL-CONTROLLED AT 129/60. 6. CHRONIC KIDNEY DISEASE STAGE 4. 7. HYPERLIPIDEMIA. PLAN: Would continue current medications. Note that the patient has normal LV ejection fraction hence Coreg has been stopped and Cardizem increased to Cardizem CD 120 mg p.o. daily but in the orders the patient still seems to be on Coreg at 12.5 mg p.o. b.i.d. Continue the patient on aspirin and Bumex. In view of the patient's renal function cannot use HOMERO inhibitor, also the patient's LV ejection fraction is normal. TIME SPENT: Note 30 minutes spent on this patient with more than 50 percent of the time spent on direct patient care, review of medications. Note the patient remains do not resuscitate by son and by [id number] who are the surrogate healthcare decision makers. Multiple medical problems were addressed and discussions done with the hospitalist taking care of this patient. Management plans involved other persons involved in the case, medical decision making was moderate to high complex in nature since the patient has multiple comorbidities. DICTATING PHYSICIAN: FARAZ LINDSAY M.D. [id number] MAR[address]A ELENA#: [id number] ID: [id number] JOB#: [id number] ACCT: [id number] cc: >
[2017-03-05 06:18] LABS: ANION GAP 8 (5-19); BLOOD UREA NITROGEN 80 mg/dL (7-20); CARBON DIOXIDE 35 mmol/L (22-30); CHLORIDE 95 mmol/L (98-107); CREATININE RESULT 1.76 mg/dL (0.52-1.25); GLUCOSE 188 mg/dL (75-110); POTASSIUM 4.2 mmol/L (3.6-5.0); SODIUM 137.5 mmol/L (137-145)
[2017-03-05] MEDS: DILTIAZEM HCL 30 MG TABLET PO SCH ×3 (06:20→16:58)
[2017-03-05] MEDS: LANSOPRAZOLE 30 MG TAB.RAP.DR PO SCH ×2 (06:20→16:57)
[2017-03-05] MEDS: FUROSEMIDE 80 MG TABLET PO SCH (07:49)
[2017-03-05] MEDS: CYANOCOBALAMIN/FA/PYRIDOXINE TABLET PO SCH (07:49)
[2017-03-05] MEDS: PREDNISONE 20 MG TABLET PO SCH (07:50)
[2017-03-05] MEDS: MAGNESIUM OXIDE 400 MG TABLET PO SCH (07:50)
[2017-03-05] MEDS: TIOTROPIUM BROMIDE DPI 5 CAP/KIT (18 MCG/CAP) IH SCH (07:50)
[2017-03-05] MEDS: INSULIN LISPRO 100 UNIT/ML 3 ML VIAL SUBCUT PRN ×4 (07:51→22:44)
[2017-03-05] MEDS: DIGOXIN 0.125 MG TABLET PO SCH (07:51)
[2017-03-05] MEDS: FOLIC ACID 1 MG TABLET PO SCH (07:51)
[2017-03-05] MEDS: APIXABAN 2.5 MG TABLET PO SCH ×2 (07:57→16:58)
[2017-03-05] MEDS: IPRATROPIUM/ALBUTEROL 0.5-2.5 MG/3 ML AMPUL NEB SCH ×3 (08:36→21:04)
--- NOTE | 2017-03-05 09:59 | PDOC PROGRESS REPORT ---
Subjective Progress Note for:: 03/05/17 Subjective:: Pt is seen resting in bed comfortably with her family present. She is now wearing BiPAP only overnight and supplemental oxygen has been weaned to 3 lpm. Pt does wear home oxygen. She states that she is feeling significantly better; she is conversational without dyspnea. She reports that she slept very well last night. She states that her cough is improved and well managed with robitussin. She has been working PT/OT. Plan is to d/c for skilled rehab when bed is available. She denies chest pain, palpitations, dyspnea and orthopnea at present. Review of systems as above and is otherwise negative. Physical Exam Vital Signs: Temp Pulse Resp BP Pulse Ox 97.6 F 78 16 115/64 97 03/05/17 07:20 03/05/17 08:37 03/05/17 08:37 03/05/17 07:20 03/05/17 08:37 Intake & Output 03/04/17 03/05/17 03/06/17 06:59 06:59 06:59 Intake Total 1251 750 Output Total 400 Balance 851 750 Weight 111 kg 110 kg General appearance: PRESENT: no acute distress, obese, well-developed, well- nourished Head exam: PRESENT: atraumatic, normocephalic Eye exam: PRESENT: conjunctiva pink, EOMI, PERRLA. ABSENT: scleral icterus Ear exam: PRESENT: normal external ear exam Mouth exam: PRESENT: moist, tongue midline Teeth exam: PRESENT: edentulous, poor dentation Neck exam: ABSENT: carotid bruit, JVD, lymphadenopathy, thyromegaly Respiratory exam: PRESENT: clear to auscultation heather, symmetrical, unlabored, other - on supplemental oxygen via NC. ABSENT: rales, rhonchi, tachypnea, wheezes Cardiovascular exam: PRESENT: RRR. ABSENT: diastolic murmur, rubs, systolic murmur Pulses: PRESENT: normal dorsalis pedis pul Vascular exam: PRESENT: normal capillary refill GI/Abdominal exam: PRESENT: normal bowel sounds, soft. ABSENT: distended, guarding, mass, organolmegaly, rebound, tenderness Rectal exam: PRESENT: deferred Extremities exam: PRESENT: full ROM. ABSENT: calf tenderness, clubbing, pedal edema Neurological exam: PRESENT: alert, awake, oriented to person, oriented to place , oriented to time, oriented to situation, CN II-XII grossly intact. ABSENT: motor sensory deficit Psychiatric exam: PRESENT: appropriate affect, normal mood. ABSENT: homicidal ideation, suicidal ideation Skin exam: PRESENT: dry, intact, warm. ABSENT: cyanosis, rash Results Laboratory Results: 03/02/17 04:17 03/05/17 05:40 03/05/17 05:40 Sodium 137.5 Potassium 4.2 Chloride 95 L Carbon Dioxide 35 H Anion Gap 8 BUN 80 H Creatinine 1.76 H Est GFR ( Amer) 34 L Est GFR (Non-Af Amer) 28 L Glucose 188 H Calcium 10.0 02/28/17 02/28/17 02/28/17 04:01 17:50 23:00 Troponin I 0.055 0.046 0.046 NT-Pro-B Natriuret Pep 03/01/17 03/03/17 05:11 05:11 Troponin I 0.041 NT-Pro-B Natriuret Pep 12233 H 07920 H Impressions: Lung Scan-VQ NM 02/28/17 01:01 IMPRESSION: PE absent (very low probability). Limitation. Chest X-Ray 03/03/17 00:00 IMPRESSION: Cardiomegaly with mild pulmonary edema. Assessment & Plan - Diagnosis (1) Weakness Is this a current diagnosis for this admission?: Yes Plan: Pt stable for d/c to rehab when bed is available. 1- Increase mobility; up with assistance 2- OOB for meals 3- Appreciate PT/OT evaluation 4- Anticipate SNF for short term rehab/physical therapy at discharge (2) Acute on chronic respiratory failure with hypoxemia Is this a current diagnosis for this admission?: Yes Plan: Acute component resolved; pt with underlying chronic respiratory failure in setting of COPD, CHF, JA, and Obesity. 1- BiPAP QHS and PRN 2- PRN duoneb and albuterol treatments 3- Steroids for COPD exacerbation (3) CHF exacerbation Qualifiers: Congestive heart failure type: unspecified congestive heart failure type Qualified Code(s): I50.9 - Heart failure, unspecified Is this a current diagnosis for this admission?: Yes Plan: Pro-BNP improving (77470--> 88544--> 1600). The pt is improved on subjective/ clinical exam with improved respiratory function and resolution of BLE edema. Serial troponins remained indeterminately elevated, however, are stable and likely reflect her heart strain r/t CHF exacerbation in setting of chronic kidney disease. Low clinical suspicion of acute [place]. 1- Appreciate Cardiology consultation 2- Medication adjustments per cardiology; continue diltiazem and digoxin. Coreg discontinued 3- Continue PO Lasix 4- Strict I&O and daily wt (4) COPD exacerbation Is this a current diagnosis for this admission?: Yes Plan: Improved. Plan as above: BiPAP and supplemental oxygen for support. PRN neb treatments. PO Prednisone. Repeat CXR is improved from previous; wheezing has resolved. 1- Resume home medication Breo 2- Continue Spiriva (5) New onset a-fib Is this a current diagnosis for this admission?: Yes Plan: A. fib of unknown duration. Recently had echocardiogram completed by outpatient tool distributor and was reviewed by Dr. Foss. Tachycardia has resolved. 1- Appreciate cardiology consultation 2- Diltiazem and Digoxin 3- Eliquis for chronic anticoagulation (6) CKD (chronic kidney disease) stage 4, GFR 15-29 ml/min Is this a current diagnosis for this admission?: Yes Plan: Creatinine improving ( 2.27-->2.16-->2.03-->1.76). Encouraged pt to drink fluids; was fluid restricted by outpatient nephrology to 1500ml 1- Encouraged PO fluids; avoid salt 2 - Avoid nephrotoxic medications (7) Diabetes mellitus type 2 in obese Is this a current diagnosis for this admission?: Yes Plan: Glucose elevated; likely increased r/t prednison. Pt not currently on home medications for DM. A1C goal for pt of her age and projected lifespan is < 8.0%. Review of record demonstrates A1C 6.1% in September 2016; pt at goal and will not require DM medication upon d/c. 1- Consistent carb diet 2- Accuchecks 3- Lantus qHS and SSI 3- Appreciate RD consultation (8) Elevated troponin Is this a current diagnosis for this admission?: Yes Plan: Likely 2/2 heart strain related to CHF exacerbation in setting of CKD. Appreciate cardiology consultation. (9) Elevated d-dimer Is this a current diagnosis for this admission?: Yes Plan: D-dimer elevated; likely incidental r/t reduced mobility. V/Q scan with very low probability of PE. No evidence of DVT on exam. (10) Hyponatremia Is this a current diagnosis for this admission?: Yes Plan: Resolved. - Time Time Spent with patient: 25-34 minutes Medications reviewed and adjusted accordingly: Yes Anticipated discharge: Acute Rehab Within: within 24 hours
[2017-03-05] MEDS: FUROSEMIDE 40 MG TABLET PO SCH (16:57)
[2017-03-05] MEDS: SERTRALINE HCL 50 MG TABLET PO SCH (16:58)
--- NOTE | 2017-03-05 20:33 | PROGRESS NOTE E ---
Progress Note NAME: BETH YOUNG : 1935 AGE: 81Y DATE: 03/05/2017 ROOM: 331 SUBJECTIVE: Note that the patient seems to be improved. Her weakness is also much better, but she will need her physical therapy and occupational therapy in a rehab facility to increase her strength. She denies any chest pain or discomfort. Her cough has been controlled with Robitussin. There is no PND, orthopnea, or leg edema. There is no wheezing. There are no palpitations. There are arrhythmias seen on the monitor. OBJECTIVE: GENERAL: On examination the patient is moderately obese, in no acute distress. Continues to be in atrial fibrillation. She also seems to have some dry cough which is controlled with Robitussin. HEENT: Head is atraumatic, normocephalic. Eyes: Pupils are equal, round and regular, reactive to light and accommodation. Extraocular movements are normal. There is no conjunctival pallor. There is no scleral icterus. Ears: Tympanic membranes are normal. Nares are patent without any inflammation of the nasal mucous membranes. Oropharynx is clear without any exudates. Mucous membranes are moist. There are no ulcers in the mouth and no bleeding from the gums. NECK: Supple. There is no JVD. There is no lymphadenopathy. There is no goiter. Carotids are equal and without any bruits. Trachea is central. LUNGS: Show diminished air entry, prolonged expiration without any rhonchi, rales, or wheezing. On percussion there is hyperresonance. HEART: S1 and S2 is heard. S1 is of variable intensity. There is no S3 gallop. There is no S4 gallop. There is a systolic murmur in the mitral area. There are no rubs. ABDOMEN: Soft, slightly obese. There are no tender areas. EXTREMITIES: Pedal pulses are slightly diminished. Femorals are slightly diminished without any bruits. There is no calf tenderness. There is no clubbing or cyanosis. Today there is no pedal edema. There is no cellulitis. CENTRAL NERVOUS SYSTEM: The patient is conscious, awake, alert, oriented x3 with no focal deficits. PSYCHIATRIC: The patient's judgment and insight are intact. Her affect is normal. LABORATORY DATA: Sodium is 17.5, potassium is 4.2, chloride is 95, CO2 is 35. The patient's BUN is 18, creatinine is 1.76, GFR is reduced at 28 which is chronic kidney disease stage 4. Glucose is 169. Her calcium is 10.0. IMPRESSION: 1. GENERALIZED WEAKNESS. The patient needs to be ambulated more and will benefit from physiotherapy and occupational therapy in a rehabilitation center. 2. ACUTE ON CHRONIC RESPIRATORY FAILURE WITH HYPOXEMIA, AT PRESENT O2 SATS ARE GOOD AND ACUTE RESPIRATORY FAILURE HAS RESOLVED. 3. CONGESTIVE HEART FAILURE MOST LIKELY A COMBINATION OF ATRIAL FIBRILLATION AND DIASTOLIC DYSFUNCTION AND VOLUME OVERLOAD DUE TO CHRONIC KIDNEY DISEASE. 4. COPD EXACERBATION, AT PRESENT THE PATIENT IS BACK TO BASELINE AND ACUTE EXACERBATION IS RESOLVED. The patient is on BREO Ellipta 100/25 mcg 2 puffs inhalation q.p.m. Also note that the patient wears BiPAP at night. She is also on ipratropium/albuterol sulfate *------* nebulizer. 5. NEW ONSET ATRIAL FIBRILLATION. The patient is on Eliquis 2.5 mg p.o. b.i.d. She is also on Cardizem at 30 mg q.6 hours, this is controlled rate. 6. ESSENTIAL HYPERTENSION, BLOOD PRESSURE IS WELL-CONTROLLED. 7. CHRONIC KIDNEY DISEASE STAGE 4. Seems to be stable, will need outpatient nephrology follow up. 8. HYPERLIPIDEMIA. Continue atorvastatin. 9. DIABETES MELLITUS. Continue insulin. PLAN: She is also on Lasix 40 mg daily. Note that the patient has normal LV ejection fraction, hence, the Coreg has been stopped and the patient's Cardizem has been increased to 30 mg p.o. q.6 hours. The patient is also on digoxin 0.125 mg daily. In view of the patient's renal function we will change the dose to 0.125 mg q. every 48 hours. The patient seems to be stable and much improved. TIME SPENT: Note 30 minutes spent on this patient with more than 50 percent of the time spent on direct patient care, medications have been reviewed and medications reconciled as necessary. From tomorrow we will change the patient to Cardizem CD 120 mg p.o. daily. Hopefully anticipate the patient being discharged home. Discussed with the hospitalist. DICTATING PHYSICIAN: FARAZ LINDSAY M.D. [id number] 2015 MARÍA ELENA#: [id number] ID: [id number] JOB#: [id number] ACCT: [id number] cc: >
[2017-03-05] MEDS: INSULIN GLARGINE,HUM.REC.ANLOG 300 UNIT/3 ML INSULN.PEN SUBCUT SCH (22:37)
[2017-03-05] MEDS: ATORVASTATIN CALCIUM 80 MG TABLET PO SCH (22:37)
[2017-03-06] MEDS: DILTIAZEM HCL 30 MG TABLET PO SCH ×5 (00:31→23:44)
[2017-03-06] MEDS: DIGOXIN 0.125 MG TABLET PO SCH (01:52)
[2017-03-06] MEDS: LANSOPRAZOLE 30 MG TAB.RAP.DR PO SCH ×2 (05:19→18:07)
[2017-03-06 06:30] LABS: HEMATOCRIT 35.2 % (36.0-47.0); HEMOGLOBIN 11.9 g/dL (12.0-15.5); HGB HCT DIFFERENCE 0.5; MEAN CORPUSCULAR HEMOGLOBIN 31.3 pg (27.0-33.4); MEAN CORPUSCULAR HGB CONC 33.7 g/dL (32.0-36.0); MEAN CORPUSCULAR VOLUME 93 fl (80-97); RED CELL DISTRIBUTION WIDTH 16.9 % (11.5-14.0); WHITE BLOOD COUNT 16.9 10^3/uL (4.0-10.5)
[2017-03-06 06:35] LABS: ANION GAP 8 (5-19); BLOOD UREA NITROGEN 85 mg/dL (7-20); CALCIUM 9.8 mg/dL (8.4-10.2); CARBON DIOXIDE 33 mmol/L (22-30); CHLORIDE 95 mmol/L (98-107); CREATININE RESULT 1.67 mg/dL (0.52-1.25); GLUCOSE 140 mg/dL (75-110); POTASSIUM 4.3 mmol/L (3.6-5.0); SODIUM 136.3 mmol/L (137-145)
[2017-03-06] MEDS: IPRATROPIUM/ALBUTEROL 0.5-2.5 MG/3 ML AMPUL NEB SCH ×3 (08:21→20:44)
[2017-03-06] MEDS ORDERED: LEVOFLOXACIN 750 MG TABLET PO SCH (09:00)
--- NOTE | 2017-03-06 09:30 | RADIOLOGY REPORT (SQ) ---
EXAM DESCRIPTION: CHEST PA/LAT COMPLETED DATE/TIME: 03/06/2017 9:18 am REASON FOR STUDY: dyspnea COMPARISON: Two-view chest 03/03/2017, 08/12/2014, 08/07/2014 I dissecting are EXAM PARAMETERS: NUMBER OF VIEWS: two views TECHNIQUE: Digital Frontal and Lateral radiographic views of the chest acquired. RADIATION DOSE: NA LIMITATIONS: Motion artifact on the lateral view, large patient, long exposure FINDINGS: LUNGS AND PLEURA: Diffuse increased interstitial markings, worrisome for interstitial nikhil a. Diffuse pulmonary vascular congestion. No pleural effusions. No pneumothorax. MEDIASTINUM AND HILAR STRUCTURES: No masses or contour abnormalities. HEART AND VASCULAR STRUCTURES: Massive cardiomegaly, stable. Calcified uncoiled thoracic aorta BONES: Osteoporotic. 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 IMPRESSION: Pulmonary vascular congestion and mild interstitial edema. Stable massive cardiomegaly. No gross pleural effusions TECHNICAL DOCUMENTATION: JOB ID: [id number] [employer]- All Rights Reserved
[2017-03-06] MEDS: PREDNISONE 20 MG TABLET PO SCH (09:55)
[2017-03-06] MEDS: FUROSEMIDE 80 MG TABLET PO SCH ×2 (09:55→18:27)
[2017-03-06] MEDS: PARICALCITOL 1 MCG CAPSULE PO SCH (09:55)
[2017-03-06] MEDS: CYANOCOBALAMIN/FA/PYRIDOXINE TABLET PO SCH (09:56)
[2017-03-06] MEDS: FOLIC ACID 1 MG TABLET PO SCH (09:56)
[2017-03-06] MEDS: MAGNESIUM OXIDE 400 MG TABLET PO SCH (09:56)
[2017-03-06] MEDS: APIXABAN 2.5 MG TABLET PO SCH ×2 (09:57→18:33)
[2017-03-06] MEDS ORDERED: FUROSEMIDE 40 MG TABLET PO ONE (11:10)
[2017-03-06] MEDS ORDERED: FUROSEMIDE INJ/PF 40 MG/4 ML SDV IV ONE (11:30)
[2017-03-06] MEDS: INSULIN LISPRO 100 UNIT/ML 3 ML VIAL SUBCUT PRN ×3 (12:41→21:26)
[2017-03-06] MEDS: TIOTROPIUM BROMIDE DPI 5 CAP/KIT (18 MCG/CAP) IH SCH (12:42)
--- NOTE | 2017-03-06 13:26 | PDOC PROGRESS REPORT ---
Subjective Progress Note for:: 03/06/17 Subjective:: Pt is seen resting in bed comfortably with her family present. She is now wearing BiPAP only overnight and supplemental oxygen has been weaned to 3 lpm. Pt does wear home oxygen. She states that she is feeling significantly better; she is conversational without dyspnea. She reports that she slept very well last night. She continues to have a productive cough. She has been working PT/OT. Plan is to d/c for skilled rehab when bed is available. She denies chest pain, palpitations, dyspnea and orthopnea at present. Review of systems as above and is otherwise negative. Physical Exam Vital Signs: Temp Pulse Resp BP Pulse Ox 97.5 F 71 16 131/70 H 96 03/06/17 07:21 03/06/17 08:21 03/06/17 08:21 03/06/17 07:21 03/06/17 08:21 Intake & Output 03/05/17 03/06/17 03/07/17 06:59 06:59 06:59 Intake Total 750 1351 Balance 750 1351 Weight 110 kg 112.6 kg General appearance: PRESENT: no acute distress, obese, well-developed, well- nourished Head exam: PRESENT: atraumatic, normocephalic Eye exam: PRESENT: conjunctiva pink, EOMI, PERRLA. ABSENT: scleral icterus Ear exam: PRESENT: normal external ear exam Mouth exam: PRESENT: moist, tongue midline Teeth exam: PRESENT: edentulous, poor dentation Neck exam: ABSENT: carotid bruit, JVD, lymphadenopathy, thyromegaly Respiratory exam: PRESENT: clear to auscultation heather, crackles - Bibasilar, Lt> Rt, symmetrical, tachypnea, unlabored. ABSENT: rales, rhonchi, wheezes Cardiovascular exam: PRESENT: irregular rhythm, +S1, +S2. ABSENT: diastolic murmur, rubs, systolic murmur Pulses: PRESENT: normal dorsalis pedis pul Vascular exam: PRESENT: normal capillary refill GI/Abdominal exam: PRESENT: normal bowel sounds, soft. ABSENT: distended, guarding, mass, organolmegaly, rebound, tenderness Rectal exam: PRESENT: deferred Extremities exam: PRESENT: full ROM, +1 edema. ABSENT: calf tenderness, clubbing, pedal edema Neurological exam: PRESENT: alert, awake, oriented to person, oriented to place , oriented to time, oriented to situation, CN II-XII grossly intact. ABSENT: motor sensory deficit Psychiatric exam: PRESENT: appropriate affect, normal mood. ABSENT: homicidal ideation, suicidal ideation Skin exam: PRESENT: dry, intact, warm. ABSENT: cyanosis, rash Results Laboratory Results: 03/06/17 05:46 03/06/17 05:46 03/06/17 03/06/17 05:46 05:46 WBC 16.9 H RBC 3.80 Hgb 11.9 L Hct 35.2 L MCV 93 MCH 31.3 MCHC 33.7 RDW 16.9 H Plt Count 226 Sodium 136.3 L Potassium 4.3 Chloride 95 L Carbon Dioxide 33 H Anion Gap 8 BUN 85 H Creatinine 1.67 H Est GFR ( Amer) 36 L Est GFR (Non-Af Amer) 29 L Glucose 140 H Calcium 9.8 02/28/17 02/28/17 02/28/17 04:01 17:50 23:00 Troponin I 0.055 0.046 0.046 NT-Pro-B Natriuret Pep 03/01/17 03/03/17 03/06/17 05:11 05:11 05:46 Troponin I 0.041 NT-Pro-B Natriuret Pep 81915 H 21422 H 7900 H Impressions: Lung Scan-VQ NM 02/28/17 01:01 IMPRESSION: PE absent (very low probability). Limitation. Chest X-Ray 03/06/17 00:00 IMPRESSION: Pulmonary vascular congestion and mild interstitial edema. Stable massive cardiomegaly. No gross pleural effusions Assessment & Plan - Diagnosis (1) CHF exacerbation Qualifiers: Congestive heart failure type: unspecified congestive heart failure type Qualified Code(s): I50.9 - Heart failure, unspecified Is this a current diagnosis for this admission?: Yes Plan: Worsened on exam today with bilateral crackles and increased BLE edema. Pro-BNP improving (42674--> 87724--> 1600-->7900). The pt is improved on subjective/clinical exam with improved respiratory function and resolution of BLE edema. Serial troponins remained indeterminately elevated, however, are stable and likely reflect her heart strain r/t CHF exacerbation in setting of chronic kidney disease. Low clinical suspicion of acute [place]. 1- Appreciate Cardiology consultation 2- Medication adjustments per cardiology; continue diltiazem and digoxin. 3- Adjust furosemide 4- Add metolazone prior to AM lasix 4- Strict I&O and daily wt (2) New onset a-fib Is this a current diagnosis for this admission?: Yes Plan: A. fib of unknown duration. Recently had echocardiogram completed by outpatient home staging specialist and was reviewed by Dr. Foss. Tachycardia has resolved. 1- Appreciate cardiology consultation 2- Diltiazem and Digoxin 3- Eliquis for chronic anticoagulation (3) Acute on chronic respiratory failure with hypoxemia Is this a current diagnosis for this admission?: Yes Plan: Acute component resolved; pt with underlying chronic respiratory failure in setting of COPD, CHF, JA, and Obesity. 1- BiPAP QHS and PRN 2- PRN duoneb and albuterol treatments 3- PO steroids for COPD exacerbation (4) Weakness Is this a current diagnosis for this admission?: Yes Plan: Plan for d/c to rehab when ready. 1- Increase mobility; up with assistance 2- OOB for meals 3- Appreciate PT/OT evaluation 4- Anticipate SNF for short term rehab/physical therapy at discharge (5) COPD exacerbation Is this a current diagnosis for this admission?: Yes Plan: Improved. Plan as above: BiPAP and supplemental oxygen for support. PRN neb treatments. PO Prednisone. Repeat CXR is improved from previous; wheezing has resolved. 1- Resume home medication Breo 2- Continue Spiriva (6) CKD (chronic kidney disease) stage 4, GFR 15-29 ml/min Is this a current diagnosis for this admission?: Yes Plan: Creatinine improving ( 2.27-->2.16-->2.03-->1.76-->1.67). Encouraged pt to drink fluids; was fluid restricted by outpatient nephrology to 1500ml 1- Encouraged PO fluids; avoid salt 2- Avoid nephrotoxic medications 3- nephrology consultation at pt's request (7) Diabetes mellitus type 2 in obese Is this a current diagnosis for this admission?: Yes Plan: Glucose elevated; likely increased r/t prednison. Pt not currently on home medications for DM. A1C goal for pt of her age and projected lifespan is < 8.0%. Review of record demonstrates A1C 6.1% in September 2016; pt at goal and will not require DM medication upon d/c. 1- Consistent carb diet 2- Accuchecks 3- Lantus qHS and SSI 3- Appreciate RD consultation (8) Elevated troponin Is this a current diagnosis for this admission?: Yes Plan: Likely 2/2 heart strain related to CHF exacerbation in setting of CKD. Appreciate cardiology consultation. (9) Elevated d-dimer Is this a current diagnosis for this admission?: Yes Plan: D-dimer elevated; likely incidental r/t reduced mobility. V/Q scan with very low probability of PE. No evidence of DVT on exam. (10) Hyponatremia Is this a current diagnosis for this admission?: Yes Plan: Resolved. - Time Time Spent with patient: 35 or more minutes Medications reviewed and adjusted accordingly: Yes Anticipated discharge: SNF
[2017-03-06] MEDS: SERTRALINE HCL 50 MG TABLET PO SCH (18:27)
[2017-03-06] MEDS: INSULIN GLARGINE,HUM.REC.ANLOG 300 UNIT/3 ML INSULN.PEN SUBCUT SCH (21:26)
[2017-03-06] MEDS: ATORVASTATIN CALCIUM 80 MG TABLET PO SCH (21:26)
--- NOTE | 2017-03-06 23:38 | PROGRESS NOTE E ---
Progress Note NAME: BETH YOUNG : 1935 AGE: 81Y DATE: 03/06/2017 ROOM: 331 SUBJECTIVE: Prior to my seeing the patient, the patient was seen by the hospitalist since the patient was short of breath and had evidence suspicious for heart failure and, hence, she had a chest x-ray. When I saw her, the patient was short of breath. She had orthopnea but no PND. There was no chest pain. She continues to be in atrial fibrillation. There is no ventricular arrhythmias on the monitor. There is no TIA or CVA symptoms. When I reviewed the chest x-ray, there is cardiomegaly on the chest x-ray with evidence of congestive heart failure. Hence, I changed the patient's p.o. Lasix to 40 mg IV Lasix. Also, there is no bleeding on Eliquis and there is PND or orthopnea. She also has been having cough which is nonproductive and some mild wheezing. OBJECTIVE: GENERAL: On examination the patient is moderately obese, in some respiratory distress. She continues to be in atrial fibrillation with a controlled ventricular response. VITAL SIGNS: She is afebrile with a temperature of 97.7 degrees Fahrenheit. Pulse is 92 beats per minute. Blood pressure 132/49. Respirations are 24 per minute. O2 saturations are 96% on 4 L nasal cannula. HEENT: Head is atraumatic, normocephalic. Eyes: Pupils are equal, round and regular, reactive to light and accommodation. Extraocular movements are normal. There is no conjunctival pallor. There is no scleral icterus. Ears: Tympanic membranes are normal. Nares are patent without any inflammation of the nasal mucous membranes. Oropharynx is clear without any exudates. Mucous membranes of the mouth are moist. There are no ulcers in the mouth and no bleeding. NECK: Supple. There is mild JVD present. There is no lymphadenopathy. There is no goiter. Carotids are equal without any bruits. Trachea is central. LUNGS: Show bibasilar rales of CHF and also diminished air entry and prolonged expiration. There is some mild wheezing and rhonchi bilaterally. On percussion there is hyperresonance. HEART: S1 and S2 is heard. S1 is of variable intensity. There is no S3 gallop. There is no S4 gallop. There is a systolic murmur in the mitral area. There are no rubs. ABDOMEN: Slightly obese. There are no tender areas. There is no hepatosplenomegaly. Bowel sounds are well heard. EXTREMITIES: Pedal pulses are slightly diminished. Femorals are slightly diminished without any bruits. There is no calf tenderness. There is no clubbing or cyanosis. There is trace to mild pedal edema. There is no cellulitis. CENTRAL NERVOUS SYSTEM: The patient is conscious, awake, alert, oriented x3 with no focal deficits. PSYCHIATRIC: The patient's judgment and insight are intact. Her affect is normal. LABORATORY DATA: Chest x-ray shows cardiomegaly and also congestive heart failure. Her intake and output are not accurate. The patient's white count is 16,900, hemoglobin is 11.9, hematocrit is 36.2 and platelet count is 226,000. The patient's sodium is 136.3, potassium is 4.3, chloride is 95, CO2 is 33. The patient's BUN is 85, creatinine is 1.67, GFR is reduced at 29, which is stage 4 chronic kidney disease. Glucose is 152. Her calcium is 9.8. The patient's dig level this morning was 1.10. IMPRESSION: 1. GENERALIZED WEAKNESS. Seems to be slightly better but is not ambulating as much. 2. ACUTE ON CHRONIC RESPIRATORY FAILURE WITH HYPOXEMIA. At present, O2 sats are good at 4 L nasal cannula. 3. CONGESTIVE HEART FAILURE MOST LIKELY A COMBINATION OF ATRIAL FIBRILLATION AND DIASTOLIC DYSFUNCTION AND VOLUME OVERLOAD DUE TO CHRONIC KIDNEY DISEASE. The patient's today's chest x-ray currently is back in heart failure. The patient has been given 40 mg IV of Lasix. 4. COPD EXACERBATION. At present probably there is an element of exacerbation of COPD. Continue Breo Ellipta, 2 puff inhalation every evening. She is also on ipratropium albuterol sulfate nebulizer treatment. 5. RECENT ONSET OF ATRIAL FIBRILLATION. At present the patient is on Eliquis. She is also on Cardizem 30 mg p.o. q.6 h. with a controlled rate. 6. ESSENTIAL HYPERTENSION. Blood pressure is well controlled. 7. CHRONIC KIDNEY DISEASE STAGE 4. The family is requesting that we contact the patient's color making supervisor, who is Dr. Clemens. I have spoken to the hospitalist and she will try to consult her to help in the management of this patient. 8. HYPERLIPIDEMIA. Continue atorvastatin. 9. DIABETES MELLITUS. Continue insulin. PLAN: The patient has a normal LV ejection fraction with diastolic dysfunction; hence, Coreg has been stopped and the patient is on Cardizem. In view of the patient's liver function, will change the dose of digoxin to 0.125 mg *------* 48 hours. The patient again has decompensated heart failure. TIME SPENT: Note 35 minutes spent on this patient with more than 50% of the time spent on direct patient care. Also discussions with the patient's family and discussions with the hospitalist managing the patient. Will not make any treatment changes except for the 40 mg of Lasix IV until seen by the patient's color making supervisor. Medications have been reviewed. Note: This is a highly complex medical decision making case in view of the patient's recurrence of heart failure. As mentioned earlier, continue the patient on Eliquis. All questions of the family have been answered. DICTATING PHYSICIAN: FARAZ LINDSAY M.D. [id number] MARÍA ELENA#: [id number] ID: [id number] JOB#: [id number] ACCT: [id number] cc: >
[2017-03-07] MEDS: LANSOPRAZOLE 30 MG TAB.RAP.DR PO SCH ×2 (05:31→18:09)
[2017-03-07] MEDS: DILTIAZEM HCL 30 MG TABLET PO SCH ×4 (05:31→23:57)
[2017-03-07 06:41] LABS: HEMATOCRIT 34.6 % (36.0-47.0); HEMOGLOBIN 11.9 g/dL (12.0-15.5); HGB HCT DIFFERENCE 1.1; MEAN CORPUSCULAR HEMOGLOBIN 31.8 pg (27.0-33.4); MEAN CORPUSCULAR HGB CONC 34.5 g/dL (32.0-36.0); MEAN CORPUSCULAR VOLUME 92 fl (80-97); RED BLOOD COUNT 3.75 10^6/uL (3.72-5.28); RED CELL DISTRIBUTION WIDTH 16.5 % (11.5-14.0); WHITE BLOOD COUNT 12.7 10^3/uL (4.0-10.5)
[2017-03-07 06:51] LABS: ANION GAP 8 (5-19); BLOOD UREA NITROGEN 86 mg/dL (7-20); CALCIUM 9.8 mg/dL (8.4-10.2); CARBON DIOXIDE 35 mmol/L (22-30); CHLORIDE 95 mmol/L (98-107); CREATININE RESULT 1.68 mg/dL (0.52-1.25); GLUCOSE 150 mg/dL (75-110); POTASSIUM 4.1 mmol/L (3.6-5.0); SODIUM 137.6 mmol/L (137-145)
[2017-03-07 07:29] LABS: ANISOCYTOSIS 1+; BAND NEUTROPHILS % (MANUAL) 2 % (3-5); BASOPHILS % (MANUAL) 0 % (0-2); EOSINOPHILS % (MANUAL) 0 % (0-6); LYMPHOCYTES % (MANUAL) 6 % (13-45); OVALOCYTES 2+; PLATELET CLUMPS PRESENT; POIKILOCYTOSIS 2+; POLYCHROMASIA SLIGHT; TOTAL CELLS COUNTED 100
[2017-03-07] MEDS: IPRATROPIUM/ALBUTEROL 0.5-2.5 MG/3 ML AMPUL NEB SCH ×3 (08:26→20:13)
[2017-03-07] MEDS: METOLAZONE 2.5 MG TABLET PO SCH (08:44)
[2017-03-07] MEDS ORDERED: FUROSEMIDE 80 MG TABLET PO SCH (10:00)
[2017-03-07] MEDS: MAGNESIUM OXIDE 400 MG TABLET PO SCH (10:57)
[2017-03-07] MEDS: FOLIC ACID 1 MG TABLET PO SCH (10:57)
[2017-03-07] MEDS: FUROSEMIDE 80 MG TABLET PO SCH ×2 (10:58→18:06)
[2017-03-07] MEDS: PARICALCITOL 1 MCG CAPSULE PO SCH (10:59)
[2017-03-07] MEDS: PREDNISONE 20 MG TABLET PO SCH (11:00)
[2017-03-07] MEDS: CYANOCOBALAMIN/FA/PYRIDOXINE TABLET PO SCH (11:00)
[2017-03-07] MEDS: TIOTROPIUM BROMIDE DPI 5 CAP/KIT (18 MCG/CAP) IH SCH (11:02)
[2017-03-07] MEDS: APIXABAN 2.5 MG TABLET PO SCH ×2 (11:05→18:06)
--- NOTE | 2017-03-07 15:59 | PDOC PROGRESS REPORT ---
Subjective Progress Note for:: 03/07/17 Subjective:: The patient states that she had a good night rest. She feels that her breathing is better than when she first came in. She has been given a bed offered to SNF. She will need bilevel Pap and discharge. Physical Exam Vital Signs: Temp Pulse Resp BP Pulse Ox 97.7 F 75 16 147/84 H 99 03/07/17 12:09 03/07/17 14:17 03/07/17 14:17 03/07/17 12:09 03/07/17 12:09 Intake & Output 03/06/17 03/07/17 03/08/17 06:59 06:59 06:59 Intake Total 1351 960 659 Balance 1351 960 659 Weight 112.6 kg 110.3 kg GENERAL: This is a well-developed well-nourished morbidly obese white female resting in bed currently in no acute distress. HEART: Regular rate and rhythm. 1/6 murmurs. No rubs or gallops. LUNGS: Clear to auscultation bilaterally with equal rise and fall of the chest. Patient is currently resting on nasal cannula. He has occasional pursed lip breathing. ABDOMEN: Soft, nontender, obese, nondistended with normoactive bowel sounds EXTREMETIES: No clubbing, cyanosis or edema. 2+ peripheral pulses bilaterally. NEURO: Awake, alert and oriented 3. Patient has difficulty hearing. Results Laboratory Results: 03/07/17 06:21 03/07/17 06:21 03/07/17 03/07/17 06:21 06:21 WBC 12.7 H RBC 3.75 Hgb 11.9 L Hct 34.6 L MCV 92 MCH 31.8 MCHC 34.5 RDW 16.5 H Plt Count 219 Seg Neutrophils % Not Reportable Lymphocytes % Not Reportable Monocytes % Not Reportable Eosinophils % Not Reportable Basophils % Not Reportable Absolute Neutrophils Not Reportable Absolute Lymphocytes Not Reportable Absolute Monocytes Not Reportable Absolute Eosinophils Not Reportable Absolute Basophils Not Reportable Sodium 137.6 Potassium 4.1 Chloride 95 L Carbon Dioxide 35 H Anion Gap 8 BUN 86 H Creatinine 1.68 H Est GFR ( Amer) 35 L Est GFR (Non-Af Amer) 29 L Glucose 150 H Calcium 9.8 10/10/17 10/10/17 10/10/17 04:01 17:50 23:00 Troponin I 0.055 0.046 0.046 NT-Pro-B Natriuret Pep 03/01/17 03/03/17 03/06/17 05:11 05:11 05:46 Troponin I 0.041 NT-Pro-B Natriuret Pep 64893 H 27799 H 7900 H Impressions: Lung Scan-VQ NM 02/28/17 01:01 IMPRESSION: PE absent (very low probability). Limitation. Chest X-Ray 03/06/17 00:00 IMPRESSION: Pulmonary vascular congestion and mild interstitial edema. Stable massive cardiomegaly. No gross pleural effusions Assessment & Plan - Diagnosis (1) Acute on chronic respiratory failure with hypoxemia Is this a current diagnosis for this admission?: Yes Plan: Secondary to underlying heart failure. The patient feels much better than what she did when she first came in. She is currently on nasal cannula at the bedside and using bilevel Pap at night. (2) CHF exacerbation Qualifiers: Congestive heart failure type: unspecified congestive heart failure type Qualified Code(s): I50.9 - Heart failure, unspecified Is this a current diagnosis for this admission?: Yes Plan: Continue current regimen with diuresis (3) COPD exacerbation Is this a current diagnosis for this admission?: Yes Plan: Continue nebulizer treatments. Continue prednisone. (4) Hyponatremia Is this a current diagnosis for this admission?: Yes Plan: Resolved. (5) New onset a-fib Is this a current diagnosis for this admission?: Yes Plan: Continue diltiazem, digoxin and Eliquis. (6) CKD (chronic kidney disease) stage 4, GFR 15-29 ml/min Is this a current diagnosis for this admission?: Yes Plan: At baseline. (7) Ambulatory dysfunction Plan: We will ask PT to help her get to the chair. They did try and stand her but the patient did not do well with this. States she is been in bed the entire admission. (8) Diabetes mellitus type 2 in obese Is this a current diagnosis for this admission?: Yes Plan: Continue current regimen (9) Essential hypertension Is this a current diagnosis for this admission?: Yes (10) Elevated d-dimer Is this a current diagnosis for this admission?: Yes (11) Elevated troponin Is this a current diagnosis for this admission?: Yes (12) Weakness Is this a current diagnosis for this admission?: Yes Plan: Continue PT - Time Time Spent with patient: 15-24 minutes Anticipated discharge: SNF Within: within 48 hours - Inpatient Certification Medical Necessity: Need Close Monitoring Due to Risk of Patient Decompensation
[2017-03-07] MEDS: INSULIN LISPRO 100 UNIT/ML 3 ML VIAL SUBCUT PRN ×2 (17:59→21:49)
[2017-03-07] MEDS: SERTRALINE HCL 50 MG TABLET PO SCH (18:05)
[2017-03-07] MEDS: NYSTATIN CREAM 15 GM TP SCH (18:07)
--- NOTE | 2017-03-07 19:37 | PDOC CONSULTATION ---
Consultation Consult Date: 03/07/17 Attending physician:: MARIANELA BHAKTA Consult reason:: I was asked by the hospitalist service to see the patient due to her underlying chronic kidney disease per patient request. History of Present Illness Admission Date/PCP: 02/27/17 23:50 History of Present Illness: BETH YOUNG is a 81 year old obese female known to me with history of chronic kidney disease stage IV, diabetes, hypertension, obesity, and coronary artery disease who got admitted on February 28 for increasing shortness of breath. Patient with diagnosed with acute respiratory failure, new onset atrial fibrillation, congestive heart failure, and COPD. For the past week she is being managed for all this diagnosis above. Patient has been diuresis with Lasix. She is currently on anticoagulation with Eliquis. Cardiology is following the patient. Patient is also being treated for COPD with inhalers, nebulization treatments, and steroids. Patient is being given BiPAP during episode of shortness of breath during sleep. Overall the patient has done well and is currently improving. In terms of the patient's kidney function she was admitted with a BUN of 50 and creatinine of 2.19 with estimated GFR of 22. Currently she has a BUN of 86, creatinine of 1.68 and estimated GFR of 29. Her kidney function has really been on her baseline and has not had any significant worsening. Currently the patient said that she feels much better with her breathing compared to admission. She feels good using the BiPAP. However she has not had any good appetite and has not been eating well today. Although the daughter at bedside said that there are some days that she eats well. Patient's urine output has not been quantified. She denies any chest pains currently. She does not have any other complaints. Past Medical History Cardiac Medical History: Reports: CHF-Diastolic, Coronary Artery Disease, Hyperlipidemia, Hypertension-primary, Myocardial Infarction Neurological Medical History: Reports: Ischemic CVA Endocrine Medical History: Reports: Diabetes Mellitus Type 2 Renal/ Medical History: Reports: Chronic Kidney Disease Stage IV, Hypomagnesemia, Proteinuria GI Medical History: Reports: Gastroesophageal Reflux Disease Musculoskeltal Medical History: Reports: Gout Past Surgical History Past Surgical History: Reports: Appendectomy, Hysterectomy, Other - Shoulder replacement, bladder surgery Social History Information Source: Patient, [facility] Records Lives with: Family Smoking Status: Never Smoker Frequency of Alcohol Use: None Hx Recreational Drug Use: No Drugs: None Hx Prescription Drug Abuse: No - Advance Directive Resuscitation Status: Do Not Resuscitate Family History Family History: Chronic Kidney Disease - Sister and brother, Malignancy - Lung cancer in her brother Parental Family History Reviewed: Yes Children Family History Reviewed: Yes Sibling(s) Family History Reviewed.: Yes Medication/Allergy Home Medications: Acyclovir [Acyclovir 400 mg Tablet] 400 mg PO DAILY 02/28/17 Aspirin [Aspirin 81 mg Chewable Tablet] 81 mg PO DAILY 02/28/17 Atorvastatin Calcium [Lipitor 80 mg Tablet] 80 mg PO QHS 02/28/17 Bumetanide [Bumex 2 mg Tablet] 2 mg PO BID 02/28/17 Carvedilol [Coreg 6.25 mg Tablet] 12.5 mg PO BID 02/28/17 Ciprofloxacin HCl [Cipro 500 mg Tablet] 500 mg PO BID 02/28/17 Cyanocobalamin/Folic AC/Vit B6 [Folbic Tablet] 1 each PO DAILY 02/28/17 Esomeprazole Magnesium [Nexium] 40 mg PO DAILY 02/28/17 Febuxostat [Uloric 80 mg Tablet] 80 mg PO DAILY 02/28/17 Fluticasone/Vilanterol [Breo Ellipta 100-25 Mcg INH] 2 puff IH QPM 02/28/17 Folic Acid [Folvite 1 mg Tablet] 1 mg PO DAILY 02/28/17 Loratadine [Claritin 10 mg Tablet] 10 mg PO DAILY 02/28/17 Magnesium 500 mg PO DAILY 02/28/17 Melatonin/Pyridoxine HCl (B6) [Melatonin 10 mg Tablet] 10 mg PO QPM 02/28/17 Paricalcitol [Zemplar 1 Mcg Capsule] 1 mcg PO MOTUWETHFR@1000 02/28/17 Prednisone [Deltasone 20 mg Tablet] 20 mg PO DAILY 02/28/17 Sertraline HCl [Zoloft] 100 mg PO QPM 02/28/17 Zolpidem Tartrate [Ambien 5 mg Tablet] 5 mg PO ASDIR PRN 02/28/17 Allergies/Adverse Reactions: codeine [Codeine] Allergy (Verified 02/28/17 00:18) Review of Systems All systems: reviewed and no additional remarkable complaints except as stated Review of Systems: Constitutional: ABSENT: chills, fatigue, fever(s), headache(s), weight gain, weight loss Eyes: ABSENT: visual disturbances Ears: ABSENT: hearing changes Cardiovascular: ABSENT: chest pain, edema, orthropnea, palpitations, admits some shortness of breath Respiratory: ABSENT: Hemoptysis, admits shortness of breath and chronic cough Gastrointestinal: ABSENT: abdominal pain, constipation, diarrhea, hematemesis, hematochezia, nausea, vomiting Genitourinary: ABSENT: dysuria, hematuria Musculoskeletal: ABSENT: joint swelling Integumentary: ABSENT: rash, wounds Neurological: ABSENT: abnormal gait, abnormal speech, confusion, dizziness, focal weakness, numbness, syncope Psychiatric: ABSENT: anxiety, depression Endocrine: ABSENT: cold intolerance, heat intolerance, polydipsia, polyuria Hematologic/Lymphatic: ABSENT: easy bleeding, easy bruising, lymphadenopathy Physical Exam Vital Signs: Temp Pulse Resp BP Pulse Ox 97.6 F 109 H 20 170/84 H 99 03/07/17 15:44 03/07/17 15:44 03/07/17 15:44 03/07/17 15:44 03/07/17 15:44 Intake & Output 03/06/17 03/07/17 03/08/17 06:59 06:59 06:59 Intake Total 1351 960 659 Balance 1351 960 659 Weight 112.6 kg 110.3 kg Exam: General appearance: no acute distress, cooperative, well-developed, well- nourished Head exam: PRESENT: atraumatic, normocephalic Eye exam: PRESENT: Conjunctiva slightly pale, EOMI, PERRLA. ABSENT: conjunctival injection, scleral icterus Mouth exam: PRESENT: moist, neck supple, tongue midline Neck exam: PRESENT: full ROM. ABSENT: carotid bruit, JVD, lymphadenopathy, thyromegaly Respiratory exam: PRESENT: Diminished auscultation bilaterally. Positive crackles in the bases ABSENT: Rhonchi, stridor, wheezes Cardiovascular exam: PRESENT: Irregularly irregular rate and rhythm, +S1, +S2. ABSENT: systolic murmur Pulses: PRESENT: normal radial pulses, normal dorsalis pedis pulses GI/Abdominal exam: PRESENT: normal bowel sounds, soft. Obese ABSENT: guarding, mass, tenderness Rectal exam: deferred Extremities exam: PRESENT: full ROM. ABSENT: calf tenderness, pedal edema Musculoskeletal: PRESENT: full ROM. ABSENT: deformity Neurological exam: PRESENT: alert, Awake, Oriented to person, Oriented to place , Oriented to time, reflexes normal, CN II-XII grossly intact. ABSENT: motor sensory deficit Psychiatric exam: PRESENT: appropriate affect, normal mood. ABSENT: homicidal ideation, suicidal ideation Skin exam: PRESENT: intact, dry, warm. ABSENT: rash Results Laboratory Results: 03/07/17 06:21 03/07/17 06:21 03/07/17 03/07/17 06:21 06:21 WBC 12.7 H RBC 3.75 Hgb 11.9 L Hct 34.6 L MCV 92 MCH 31.8 MCHC 34.5 RDW 16.5 H Plt Count 219 Seg Neutrophils % Not Reportable Lymphocytes % Not Reportable Monocytes % Not Reportable Eosinophils % Not Reportable Basophils % Not Reportable Absolute Neutrophils Not Reportable Absolute Lymphocytes Not Reportable Absolute Monocytes Not Reportable Absolute Eosinophils Not Reportable Absolute Basophils Not Reportable Sodium 137.6 Potassium 4.1 Chloride 95 L Carbon Dioxide 35 H Anion Gap 8 BUN 86 H Creatinine 1.68 H Est GFR ( Amer) 35 L Est GFR (Non-Af Amer) 29 L Glucose 150 H Calcium 9.8 02/28/17 02/28/17 02/28/17 04:01 17:50 23:00 Troponin I 0.055 0.046 0.046 NT-Pro-B Natriuret Pep 03/01/17 03/03/17 03/06/17 05:11 05:11 05:46 Troponin I 0.041 NT-Pro-B Natriuret Pep 31142 H 43333 H 7900 H Impressions: Lung Scan-VQ NM 02/28/17 01:01 IMPRESSION: PE absent (very low probability). Limitation. Chest X-Ray 03/06/17 00:00 IMPRESSION: Pulmonary vascular congestion and mild interstitial edema. Stable massive cardiomegaly. No gross pleural effusions Assessment & Plan - Diagnosis (1) CKD (chronic kidney disease) stage 4, GFR 15-29 ml/min Is this a current diagnosis for this admission?: Yes Plan: Patient's kidney function is actually currently better than baseline. There has been no acute worsening of kidney function during his hospitalization. Agree with Lasix and metolazone currently being given. Patient was previously on Bumex 2 mg twice daily which is equivalent to current Lasix dose. May continue the same. I do not think there is any other further intervention from nephrology standpoint at this point. (2) Essential hypertension Is this a current diagnosis for this admission?: Yes (3) Acute on chronic respiratory failure with hypoxemia Is this a current diagnosis for this admission?: Yes (4) CHF exacerbation Qualifiers: Congestive heart failure type: diastolic Qualified Code(s): I50.33 - Acute on chronic diastolic (congestive) heart failure Is this a current diagnosis for this admission?: Yes (5) COPD exacerbation Is this a current diagnosis for this admission?: Yes (6) New onset a-fib Is this a current diagnosis for this admission?: Yes (7) Diabetes mellitus type 2 in obese Is this a current diagnosis for this admission?: Yes - Notes Notes: Thank you very much for this consultation. I reassured the patient and her daughter at bedside regarding her kidney function today. - Time Time Spent: 50 to 70 Minutes
--- NOTE | 2017-03-07 20:57 | PDOC PROGRESS REPORT ---
Subjective Progress Note for:: 03/07/17 Subjective:: Patient seems to be doing better with significant improvement. Patient was noted to be more alert. Pt is denying any chest arm or neck discomfort. Patient denying any PND, orthopnea. Patient denied any sustained palpitations, dizziness, syncope, near syncope. Patient denying any fever chills. Patient denying any other significant discomfort. Wheezing seems to be better. Patient is maintaining atrial fibrillation, reasonably controlled but heart rate is noted to be somewhat on the high side. Review of systems: Rest review of systems negative. Medications: Medications have been reviewed. Physical Exam Vital Signs: Temp Pulse Resp BP Pulse Ox 97.6 F 109 H 20 170/84 H 99 03/07/17 15:44 03/07/17 15:44 03/07/17 15:44 03/07/17 15:44 03/07/17 15:44 Intake & Output 03/06/17 03/07/17 03/08/17 06:59 06:59 06:59 Intake Total 7614 999 4928 Balance 0624 401 4152 Weight 112.6 kg 110.3 kg Exam: GENERAL: well-nourished and in no acute distress. Alert and oriented x3 HEAD: Atraumatic, normocephalic. EYES: Pupils equal round and reactive to light, extraocular movements intact, sclera anicteric, conjunctiva are normal. ENT: TMs normal, nares patent, oropharynx clear without exudates. Moist mucous membranes. No oral ulcerations or bleeding gums noted NECK: supple without lymphadenopathy. Trachea is central. No cervical or axillary lymphadenopathy noted. Carotids are 2+, JVD WNL LUNGS: Respiration seems nonlabored, no significant accessory muscle action noted. Few bilateral wheezes rales or rhonchi noted. No significant dullness noted on percussion. CHEST: Palpation of the chest wall shows no significant chest wall tenderness. No other significant abnormalities noted. HEART: [place] [employer], No PSH, 1/6 CHE aortic area, 1/6 ley systolic murmur mitral area, no rubs, no gallops. ABDOMEN: Soft, no significant tenderness appreciated, normoactive bowel sounds. No guarding, no rebound. No rigidity noted . No masses appreciated. EXTREMITIES: Pedal pulses are 1-2+, no calf tenderness noted. No clubbing or cyanosis. 1+ pedal edema noted NEUROLOGICAL: Focused neurological exam showed no significant neurologic deficit. Normal speech, no focal weakness appreciated. PSYCH: Normal mood, normal affect. Judgment and insight within normal limits. SKIN: No significant ecchymosis, rash, ulcerations or signs of pruritus noted. MUSCULOSKELETAL EXAM: No significant joint swelling noted. Results Laboratory Results: 03/07/17 06:21 03/07/17 06:21 03/07/17 03/07/17 06:21 06:21 WBC 12.7 H RBC 3.75 Hgb 11.9 L Hct 34.6 L MCV 92 MCH 31.8 MCHC 34.5 RDW 16.5 H Plt Count 219 Seg Neutrophils % Not Reportable Lymphocytes % Not Reportable Monocytes % Not Reportable Eosinophils % Not Reportable Basophils % Not Reportable Absolute Neutrophils Not Reportable Absolute Lymphocytes Not Reportable Absolute Monocytes Not Reportable Absolute Eosinophils Not Reportable Absolute Basophils Not Reportable Sodium 137.6 Potassium 4.1 Chloride 95 L Carbon Dioxide 35 H Anion Gap 8 BUN 86 H Creatinine 1.68 H Est GFR ( Amer) 35 L Est GFR (Non-Af Amer) 29 L Glucose 150 H Calcium 9.8 02/28/17 02/28/17 02/28/17 04:01 17:50 23:00 Troponin I 0.055 0.046 0.046 NT-Pro-B Natriuret Pep 03/01/17 03/03/17 03/06/17 05:11 05:11 05:46 Troponin I 0.041 NT-Pro-B Natriuret Pep 37810 H 11817 H 7900 H EKG Comments: Telemetry strips shows atrial fibrillation with fairly controlled heart rate response. Impressions: Lung Scan-VQ NM 02/28/17 01:01 IMPRESSION: PE absent (very low probability). Limitation. Chest X-Ray 03/06/17 00:00 IMPRESSION: Pulmonary vascular congestion and mild interstitial edema. Stable massive cardiomegaly. No gross pleural effusions Assessment & Plan - Diagnosis (1) Acute on chronic respiratory failure with hypoxemia Is this a current diagnosis for this admission?: Yes (2) CHF exacerbation Qualifiers: Congestive heart failure type: diastolic Qualified Code(s): I50.33 - Acute on chronic diastolic (congestive) heart failure Is this a current diagnosis for this admission?: Yes (3) COPD exacerbation Is this a current diagnosis for this admission?: Yes (4) New onset a-fib Is this a current diagnosis for this admission?: Yes (5) Essential hypertension Is this a current diagnosis for this admission?: Yes - Notes Notes: Acute on chronic respiratory failure with hypoxemia by O2 sat monitoring: Possibly combination of COPD and CHF. Patient is significantly improved. Continue intermittent positive pressure ventilation therapy noninvasively and also bronchodilator and other treatment. CHF exacerbation: This is related to diastolic dysfunction and volume overload. Recent echocardiogram from few months ago was reviewed. Currently seems fairly compensated. Will review chest x-ray. COPD with exacerbation: Continue current management plans. Patient noted to be wheezing today. However patient stable. New onset atrial fibrillation: Exact duration and onset is not clear by history. Recommend chronic anticoagulation at this point along with rate control. Patient would be a good candidate for chronic anticoagulation in view of prior history of CVA. Heart rate seems reasonably well controlled. Continue current anticoagulation. Hypertension: Blood pressure under satisfactory control. History of cerebrovascular accident: Currently stable. Patient does not seem to have any significant residual deficit. Discussed management with patient's daughter. - Time Time with patient: 15-25 minutes - More than 50% of the time spent coordinating care, discussing management plans with involved caregivers. Management plans discussed with involved personnels. Medical decision making was of moderate to high complexity, patient's has multiple comorbidities. Medications reviewed and adjusted accordingly: Yes
[2017-03-07] MEDS: DIGOXIN 0.125 MG TABLET PO SCH (21:49)
[2017-03-07] MEDS: ATORVASTATIN CALCIUM 80 MG TABLET PO SCH (21:49)
[2017-03-07] MEDS: INSULIN GLARGINE,HUM.REC.ANLOG 300 UNIT/3 ML INSULN.PEN SUBCUT SCH (21:49)
[2017-03-08] MEDS: DILTIAZEM HCL 30 MG TABLET PO SCH ×3 (05:52→18:13)
[2017-03-08] MEDS: LANSOPRAZOLE 30 MG TAB.RAP.DR PO SCH ×2 (05:52→17:36)
[2017-03-08] MEDS: IPRATROPIUM/ALBUTEROL 0.5-2.5 MG/3 ML AMPUL NEB SCH ×3 (08:42→20:34)
[2017-03-08] MEDS: METOLAZONE 2.5 MG TABLET PO SCH (08:54)
[2017-03-08] MEDS: APIXABAN 2.5 MG TABLET PO SCH ×2 (10:18→18:10)
[2017-03-08] MEDS: CYANOCOBALAMIN/FA/PYRIDOXINE TABLET PO SCH (10:19)
[2017-03-08] MEDS: FOLIC ACID 1 MG TABLET PO SCH (10:19)
[2017-03-08] MEDS: FUROSEMIDE 80 MG TABLET PO SCH ×2 (10:19→18:13)
[2017-03-08] MEDS: NYSTATIN CREAM 15 GM TP SCH ×2 (10:21→18:12)
[2017-03-08] MEDS: PARICALCITOL 1 MCG CAPSULE PO SCH (10:21)
[2017-03-08] MEDS: MAGNESIUM OXIDE 400 MG TABLET PO SCH (10:21)
[2017-03-08] MEDS: PREDNISONE 20 MG TABLET PO SCH (10:22)
[2017-03-08] MEDS: TIOTROPIUM BROMIDE DPI 5 CAP/KIT (18 MCG/CAP) IH SCH (10:28)
--- NOTE | 2017-03-08 12:15 | PDOC PROGRESS REPORT ---
Subjective Progress Note for:: 03/08/17 Subjective:: Patient seems to be doing better with significant improvement. Patient looks brighter today. Pt is denying any chest arm or neck discomfort. Patient denying any PND, orthopnea. Patient denied any sustained palpitations, dizziness, syncope, near syncope. Patient denying any fever chills. Patient denying any other significant discomfort. Wheezing seems to be better. Patient today walked with physical therapy. Patient daughter tells me that she had a episode of dyspnea yesterday afternoon. Patient is maintaining atrial fibrillation, reasonably controlled but heart rate is noted to be somewhat on the high side. Review of systems: Rest review of systems negative. Medications: Medications have been reviewed. Physical Exam Vital Signs: Temp Pulse Resp BP Pulse Ox 97.8 F 87 14 147/97 H 98 03/08/17 07:13 03/08/17 08:42 03/08/17 08:42 03/08/17 07:13 03/08/17 08:42 Intake & Output 03/07/17 03/08/17 03/09/17 06:59 06:59 06:59 Intake Total 960 1365 Balance 960 1365 Weight 110.3 kg 110.3 kg Exam: GENERAL: well-nourished and in no acute distress. Alert and oriented x3 HEAD: Atraumatic, normocephalic. EYES: Pupils equal round and reactive to light, extraocular movements intact, sclera anicteric, conjunctiva are normal. ENT: TMs normal, nares patent, oropharynx clear without exudates. Moist mucous membranes. No oral ulcerations or bleeding gums noted NECK: supple without lymphadenopathy. Trachea is central. No cervical or axillary lymphadenopathy noted. Carotids are 2+, JVD WNL LUNGS: Respiration seems nonlabored, no significant accessory muscle action noted. Few bibasilar crackles noted. No wheezes rales or rhonchi noted. No significant dullness noted on percussion. CHEST: Palpation of the chest wall shows no significant chest wall tenderness. No other significant abnormalities noted. HEART: [place] [employer], No PSH, 1/6 CHE aortic area, 1/6 ley systolic murmur mitral area, no rubs, no gallops. ABDOMEN: Soft, no significant tenderness appreciated, normoactive bowel sounds. No guarding, no rebound. No rigidity noted . No masses appreciated. EXTREMITIES: Pedal pulses are 1-2+, no calf tenderness noted. No clubbing or cyanosis.trace to 1+ pedal edema noted NEUROLOGICAL: Focused neurological exam showed no significant neurologic deficit. Normal speech, no focal weakness appreciated. PSYCH: Normal mood, normal affect. Judgment and insight within normal limits. SKIN: No significant ecchymosis, rash, ulcerations or signs of pruritus noted. MUSCULOSKELETAL EXAM: No significant joint swelling noted. Results Laboratory Results: 03/07/17 06:21 03/07/17 06:21 02/28/17 02/28/17 02/28/17 04:01 17:50 23:00 Troponin I 0.055 0.046 0.046 NT-Pro-B Natriuret Pep 03/01/17 03/03/17 03/06/17 05:11 05:11 05:46 Troponin I 0.041 NT-Pro-B Natriuret Pep 93881 H 35198 H 7900 H EKG Comments: Atrial fibrillation with controlled ventricular response. Impressions: Lung Scan-VQ NM 02/28/17 01:01 IMPRESSION: PE absent (very low probability). Limitation. Chest X-Ray 03/06/17 00:00 IMPRESSION: Pulmonary vascular congestion and mild interstitial edema. Stable massive cardiomegaly. No gross pleural effusions Assessment & Plan - Diagnosis (1) Acute on chronic respiratory failure with hypoxemia Is this a current diagnosis for this admission?: Yes (2) CHF exacerbation Qualifiers: Congestive heart failure type: diastolic Qualified Code(s): I50.33 - Acute on chronic diastolic (congestive) heart failure Is this a current diagnosis for this admission?: Yes (3) COPD exacerbation Is this a current diagnosis for this admission?: Yes (4) New onset a-fib Is this a current diagnosis for this admission?: Yes (5) Essential hypertension Is this a current diagnosis for this admission?: Yes - Notes Notes: Previous chest x-ray reviewed. It shows CHF. I feel that it may be worthwhile to repeat a 2D echocardiogram as patient is not getting better and further evaluation with a new echocardiogram is indicated. This will be scheduled. Patient's medical regimen reviewed. Will obtain a repeat BNP level. Will repeat a chest x-ray tomorrow. In the meantime, no medication changes being recommended. - Time Time with patient: Greater than 35 minutes - CODE STATUS : was discussed, patient remains DO NOT RESUSCITATE. Surrogate decision-maker unchanged. Multiple medical problems were addressed. More than 50% of the time spent coordinating care, discussing management plans with involved caregivers. Management plans discussed with involved personnels. Medical decision making was of moderate to high complexity, patient's has multiple comorbidities. Medications reviewed and adjusted accordingly: Yes
--- NOTE | 2017-03-08 14:26 | PDOC DISCHARGE SUMMARY ---
General - Admit/Disc Date/PCP Admission Date/Primary Care Provider: 02/27/17 23:50 Discharge Date: 03/08/17 - Discharge Diagnosis (1) Acute on chronic respiratory failure with hypoxemia Is this a current diagnosis for this admission?: Yes Summary: The patient is now back at baseline she is on nasal cannula during the day and at night she will require bilevel Pap at a setting of 14/6 with 30% FiO2. (2) CHF exacerbation Is this a current diagnosis for this admission?: Yes Summary: The patient is improved. She saw cardiology. She will be on Bumex as an outpatient. (3) COPD exacerbation Is this a current diagnosis for this admission?: Yes Summary: Resolved. Continue prednisone taper as an outpatient. Continue various nebulizers and inhalers. (4) Hyponatremia Is this a current diagnosis for this admission?: Yes Summary: Resolved. (5) New onset a-fib Is this a current diagnosis for this admission?: Yes Summary: Continue current therapy. (6) CKD (chronic kidney disease) stage 4, GFR 15-29 ml/min Is this a current diagnosis for this admission?: Yes Summary: The patient is currently at baseline. (7) Ambulatory dysfunction Summary: Continue physical therapy and occupational therapy in the [facility] facility (8) Diabetes mellitus type 2 in obese Is this a current diagnosis for this admission?: Yes Summary: Continue current medications. (9) Essential hypertension Is this a current diagnosis for this admission?: Yes Summary: Continue current medications. (10) Elevated d-dimer Is this a current diagnosis for this admission?: Yes (11) Elevated troponin Is this a current diagnosis for this admission?: Yes Summary: Likely secondary to underlying renal failure. (12) Weakness Is this a current diagnosis for this admission?: Yes Summary: Continue physical therapy. - Additional Information Resuscitation Status: Do Not Resuscitate Home Medications: Acyclovir [Acyclovir 400 mg Tablet] 400 mg PO DAILY 02/28/17 Aspirin [Aspirin 81 mg Chewable Tablet] 81 mg PO DAILY 02/28/17 Atorvastatin Calcium [Lipitor 80 mg Tablet] 80 mg PO QHS 02/28/17 Cyanocobalamin/Folic AC/Vit B6 [Folbic Tablet] 1 each PO DAILY 02/28/17 Esomeprazole Magnesium [Nexium] 40 mg PO DAILY 02/28/17 Febuxostat [Uloric 80 mg Tablet] 80 mg PO DAILY 02/28/17 Fluticasone/Vilanterol [Breo Ellipta 100-25 Mcg INH] 2 puff IH QPM 02/28/17 Folic Acid [Folvite 1 mg Tablet] 1 mg PO DAILY 02/28/17 Loratadine [Claritin 10 mg Tablet] 10 mg PO DAILY 02/28/17 Magnesium 500 mg PO DAILY 02/28/17 Melatonin/Pyridoxine HCl (B6) [Melatonin 10 mg Tablet] 10 mg PO QPM 02/28/17 Paricalcitol [Zemplar 1 Mcg Capsule] 1 mcg PO MOTUWETHFR@1000 02/28/17 Prednisone [Deltasone 20 mg Tablet] 20 mg PO DAILY 02/28/17 Sertraline HCl [Zoloft] 100 mg PO QPM 02/28/17 Zolpidem Tartrate [Ambien 5 mg Tablet] 5 mg PO ASDIR PRN 02/28/17 Albuterol Sulfate [Ventolin 0.083% Neb 2.5 mg/3 mL Ampul] 2.5 mg NEB [id number] PRN vial.neb 03/08/17 Apixaban [Eliquis 2.5 mg Tablet] 2.5 mg PO BID #0 tablet 03/08/17 Digoxin [Lanoxin 0.125 mg Tablet] 0.125 mg PO Q48HS tablet 03/08/17 Diltiazem HCl [Cardizem Cd 120 mg Capsule] 1 cap.sr PO DAILY #30 cap.sr Furosemide [Lasix 80 mg Tablet] 80 mg PO BID tablet 03/08/17 Guaifenesin [Robitussin Syrup 200 mg/10 ml Ud Cup] 200 mg PO Q4HP PRN udc 03/08 Insulin Glargine,Hum.rec.anlog [Lantus Insulin 100 Unit/mL] 4 unit SUBCUT QHS insuln.pen 03/08/17 Ipratropium/Albuterol Sulfate [Duoneb 3 ml Ampul] 3 ml NEB [id number] vial.neb Metolazone [Zaroxolyn 2.5 mg Tablet] 2.5 mg PO QAM tablet 03/08/17 Nystatin [Mycostatin Cream 15 gm] 1 applic TP BID tube 03/08/17 Polyethylene Glycol 3350 [Miralax Powder 17 gm/Packet] 17 gm PO DAILYP PRN powd.pack 03/08/17 History of Present Illness History of Present Illness: BETH YOUNG is a 81 year old female who was admitted for acute on chronic congestive heart failure and respiratory failure. Please see the admission H&P by Dr. Terrell below. Patient complains of: Short of breath History of Present Illness: BETH YOUNG is a 81 year old obese female with underlying as needed home O2 dependent COPD, type 2 diabetes mellitus, coronary artery disease , having suffered a previous ID, congestive heart failure, uncertain if systolic and/or diastolic, arthritis, gout, prior stroke without residual aftereffects, hyperlipidemia, and mild anxiety and depression, without suicidal or homicidal ideation, who presents to the emergency room by EMS for evaluation of above complaints. Patient has been discussed with emergency room physician who evaluated the patient. Patient seems a bit fatigued and somewhat confused and is able to provide little history in terms of acute or chronic events, review of systems, personal habits, family history, etc. daughter is present at her side, with patient's approval, and is helpful and informative, although she herself does not know some aspects of her mother's healthcare and issues. Old inpatient records are reviewed. Was in fairly significant respiratory distress upon arrival, but has improved with treatment so far including BiPAP. Blood pressures have been a bit "soft," so Lasix has not been given. Several day history of gradually worsening shortness of breath, in particular over the last 24 hours. Upon EMS arrival, oxygen concentration was 70% on 2 L oxygen per nasal cannula. Started on BiPAP and given a DuoNeb. Normally takes Bumex every day. Patient has family member staying with her at all time and normally is weighed most days. Daughter states that recently she is actually lost a bit of weight. No unusual ankle swelling. Only recent medication change has been the addition of Cipro several days ago for urinary tract infection. 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 No chest or abdominal pain, fever or chills. No diarrhea or dysuria. Dictation via voice recognition software. Laboratory results are listed in [facility] and are reviewed. X-ray summary results are listed below, with full report(s) reviewed. EKG reviewed and compared to a prior tracing from January 16 of this year. No documented history of prior atrial fibrillation, her daughter's comments, or review of prior EKGs, or history and physical or discharge summary. Hospital Course Hospital Course: The patient was admitted to the hospital. Because of an elevated d-dimer she underwent a VQ scan which showed very low probability for PE. The patient was maintained on bilevel Pap as well as IV antibiotics for presumptive pneumonia. Her atrial fibrillation continued to be treated and a cardiology consultation was placed. She was treated with prednisone for COPD exacerbation which was felt to contribute to her acute respiratory failure. The patient continued to be diuresed with Bumex. She was also started on Eliquis while she has been here for atrial fibrillation. Ultimately her A. fib was managed with digoxin and Coreg. She received PT and OT evaluation for her weakness and it was felt that she would be better served going to a rehab facility for strengthening. Overall the patient did well with diuresis, steroid therapy, and rate control therapy while here. He was able to be weaned to nightly BiPAP and will require BiPAP at night on an ongoing basis. She did well during the day with nasal cannula. While she was here she incidentally was found to have a urinary tract infection and was provided with 3 days of Rocephin. This was diagnosed clinically no cultures were done. Patient is currently stable and now ready for discharge. Physical Exam Vital Signs: Temp Pulse Resp BP Pulse Ox 97.8 F 87 14 147/97 H 98 03/08/17 07:13 03/08/17 08:42 03/08/17 08:42 03/08/17 07:13 03/08/17 08:42 Intake & Output 03/07/17 03/08/17 03/09/17 06:59 06:59 06:59 Intake Total 960 1365 Balance 960 1365 Weight 110.3 kg 110.3 kg GENERAL: This is a well-developed well-nourished morbidly obese white female resting in bed currently in no acute distress reading the paper. HEART: Regular rate and rhythm. 1/6 murmurs. No rubs or gallops. LUNGS: Clear to auscultation bilaterally with equal rise and fall of the chest. Patient is currently resting on nasal cannula. ABDOMEN: Soft, nontender, obese, nondistended with normoactive bowel sounds EXTREMETIES: No clubbing, cyanosis or edema. 2+ peripheral pulses bilaterally. NEURO: Awake, alert and oriented 3. Patient has difficulty hearing. Results Laboratory Results: 03/07/17 06:21 03/07/17 06:21 02/28/17 02/28/17 02/28/17 04:01 17:50 23:00 Troponin I 0.055 0.046 0.046 NT-Pro-B Natriuret Pep 03/01/17 03/03/17 03/06/17 05:11 05:11 05:46 Troponin I 0.041 NT-Pro-B Natriuret Pep 49034 H 61185 H 7900 H Impressions: Lung Scan-VQ NM 02/28/17 01:01 IMPRESSION: PE absent (very low probability). Limitation. Chest X-Ray 03/06/17 00:00 IMPRESSION: Pulmonary vascular congestion and mild interstitial edema. Stable massive cardiomegaly. No gross pleural effusions Qualifiers PATEINT BEING DISCHARGED WITH ANY OF THE FOLLOWING DIAGNOSIS?: No Plan Time Spent: Greater than 30 Minutes
[2017-03-08] MEDS: INSULIN LISPRO 100 UNIT/ML 3 ML VIAL SUBCUT PRN ×2 (17:34→21:51)
[2017-03-08] MEDS: SERTRALINE HCL 50 MG TABLET PO SCH (18:12)
[2017-03-08] MEDS: INSULIN GLARGINE,HUM.REC.ANLOG 300 UNIT/3 ML INSULN.PEN SUBCUT SCH (21:51)
[2017-03-08] MEDS: ATORVASTATIN CALCIUM 80 MG TABLET PO SCH (21:52)
[2017-03-09] MEDS: DILTIAZEM HCL 30 MG TABLET PO SCH ×3 (00:01→12:35)
[2017-03-09] MEDS: LANSOPRAZOLE 30 MG TAB.RAP.DR PO SCH (05:55)
[2017-03-09] MEDS: METOLAZONE 2.5 MG TABLET PO SCH (08:38)
[2017-03-09] MEDS: IPRATROPIUM/ALBUTEROL 0.5-2.5 MG/3 ML AMPUL NEB SCH (08:38)
[2017-03-09] MEDS: PREDNISONE 20 MG TABLET PO SCH (11:10)
[2017-03-09] MEDS: CYANOCOBALAMIN/FA/PYRIDOXINE TABLET PO SCH (11:10)
[2017-03-09] MEDS: PARICALCITOL 1 MCG CAPSULE PO SCH (11:10)
[2017-03-09] MEDS: APIXABAN 2.5 MG TABLET PO SCH (11:10)
[2017-03-09] MEDS: NYSTATIN CREAM 15 GM TP SCH (11:11)
[2017-03-09] MEDS: MAGNESIUM OXIDE 400 MG TABLET PO SCH (11:11)
[2017-03-09] MEDS: FOLIC ACID 1 MG TABLET PO SCH (11:11)
[2017-03-09] MEDS: TIOTROPIUM BROMIDE DPI 5 CAP/KIT (18 MCG/CAP) IH SCH (11:12)
[2017-03-09] MEDS: FUROSEMIDE 80 MG TABLET PO SCH (11:15)
[2017-03-09 12:14] VITALS: BP 129/81
--- NOTE | 2017-03-09 21:32 | PDOC PROGRESS REPORT ---
Subjective Progress Note for:: 03/09/17 Subjective:: Patient seen in the morning prior to discharge. 2D echo was not done. Patient seems to be doing better with significant improvement. Patient looks brighter today. Pt is denying any chest arm or neck discomfort. Patient denying any PND, orthopnea. Patient denied any sustained palpitations, dizziness, syncope, near syncope. Patient denying any fever chills. Patient denying any other significant discomfort. Patient is maintaining atrial fibrillation, reasonably controlled. Review of systems: Rest review of systems negative. Medications: Medications have been reviewed. Physical Exam Vital Signs: Temp Pulse Resp BP Pulse Ox 97.5 F 79 22 H 129/81 H 97 03/09/17 11:08 03/09/17 11:08 03/09/17 11:08 03/09/17 11:08 03/09/17 11:08 Intake & Output 03/08/17 03/09/17 03/10/17 06:59 06:59 06:59 Intake Total 1365 1739 Balance 1365 1739 Weight 110.3 kg 110.4 kg Exam: GENERAL: well-nourished and in no acute distress. Alert and oriented x3. Patient in better spirits HEAD: Atraumatic, normocephalic. EYES: Pupils equal round and reactive to light, extraocular movements intact, sclera anicteric, conjunctiva are normal. ENT: TMs normal, nares patent, oropharynx clear without exudates. Moist mucous membranes. No oral ulcerations or bleeding gums noted NECK: supple without lymphadenopathy. Trachea is central. No cervical or axillary lymphadenopathy noted. Carotids are 2+, JVD WNL LUNGS: Respiration seems nonlabored, no significant accessory muscle action noted. Breath sounds clear to auscultation bilaterally and equal noted. No wheezes rales or rhonchi noted. No significant dullness noted on percussion. CHEST: Palpation of the chest wall shows no significant chest wall tenderness. No other significant abnormalities noted. HEART: [place] X RAY NURSE, No PSH, 1/6 CHE aortic area, 1/6 ley systolic murmur mitral area, no rubs, no gallops. ABDOMEN: Soft, no significant tenderness appreciated, normoactive bowel sounds. No guarding, no rebound. No rigidity noted . No masses appreciated. EXTREMITIES: Pedal pulses are 1-2+, no calf tenderness noted. No clubbing or cyanosis.trace to 1+ pedal edema noted NEUROLOGICAL: Focused neurological exam showed no significant neurologic deficit. Normal speech, no focal weakness appreciated. PSYCH: Normal mood, normal affect. Judgment and insight within normal limits. SKIN: No significant ecchymosis, rash, ulcerations or signs of pruritus noted. MUSCULOSKELETAL EXAM: No significant joint swelling noted. Results Laboratory Results: 03/07/17 06:21 03/07/17 06:21 02/28/17 02/28/17 02/28/17 04:01 17:50 23:00 Troponin I 0.055 0.046 0.046 NT-Pro-B Natriuret Pep 03/01/17 03/03/17 03/06/17 05:11 05:11 05:46 Troponin I 0.041 NT-Pro-B Natriuret Pep 42641 H 75588 H 7900 H EKG Comments: Telemetry strips shows atrial fibrillation with controlled ventricular response. Impressions: Lung Scan-VQ NM 02/28/17 01:01 IMPRESSION: PE absent (very low probability). Limitation. Chest X-Ray 03/06/17 00:00 IMPRESSION: Pulmonary vascular congestion and mild interstitial edema. Stable massive cardiomegaly. No gross pleural effusions Assessment & Plan - Diagnosis (1) Acute on chronic respiratory failure with hypoxemia Is this a current diagnosis for this admission?: Yes (2) CHF exacerbation Qualifiers: Congestive heart failure type: diastolic Qualified Code(s): I50.33 - Acute on chronic diastolic (congestive) heart failure Is this a current diagnosis for this admission?: Yes (3) COPD exacerbation Is this a current diagnosis for this admission?: Yes (4) New onset a-fib Is this a current diagnosis for this admission?: Yes (5) Essential hypertension Is this a current diagnosis for this admission?: Yes - Notes Notes: Patient would benefit from cardiology follow-up. Patient may benefit from a repeat echo as an outpatient. Chronic atrial fibrillation: Continue chronic anticoagulation. Rate well controlled. COPD: Continue current management plans with steroids and bronchodilator therapy. Hypertension: Blood pressure goal is 135/85 in this lady but could be more liberal in view of advanced age. CHF: Seems reasonably well controlled. Patient and family educated about salt and fluid restriction. Patient also advised on daily weighing.. - Time Time with patient: 15-25 minutes - CODE STATUS : was discussed, patient remains DO NOT RESUSCITATE. Surrogate decision-maker unchanged. Multiple medical problems were addressed. More than 50% of the time spent coordinating care, discussing management plans with involved caregivers. Management plans discussed with involved personnels. Medical decision making was of moderate to high complexity, patient's has multiple comorbidities. Medications reviewed and adjusted accordingly: Yes
== END 2017-03-09 13:12 | DRG 189 ==
LOC: ER 17:28 → UNDOADMIN 22:50 → EH 22:50 → 3S 02-28 03:33
PROVIDERS: ADMIT Family Medicine; ATTEND Family Medicine
PROC: 5A09557 Assistance with Respiratory Ventilation, Greater than 96 Consecutive Hours, Continuous Positive Airway Pressure (ICD-10-PCS; 2017-02-27)
PROC: 3E0F73Z Introduction of Anti-inflammatory into Respiratory Tract, Via Natural or Artificial Opening (ICD-10-PCS; principal; 2017-02-28)
PROC: 3E0234Z Introduction of Serum, Toxoid and Vaccine into Muscle, Percutaneous Approach (ICD-10-PCS; 2017-03-09)
DX: J96.21 Acute and chronic respiratory failure with hypoxia (principal); I50.33 Acute on chronic diastolic (congestive) heart failure; J44.1 Chronic obstructive pulmonary disease with (acute) exacerbation; E87.1 Hypo-osmolality and hyponatremia; N18.4 Chronic kidney disease, stage 4 (severe); I13.0 Hypertensive heart and chronic kidney disease with heart failure and stage 1 through stage 4 chronic kidney disease, or unspecified chronic kidney disease; N39.0 Urinary tract infection, site not specified; I48.91 Unspecified atrial fibrillation; E11.22 Type 2 diabetes mellitus with diabetic chronic kidney disease; Z68.38 Body mass index [BMI] 38.0-38.9, adult; R79.1 Abnormal coagulation profile; M10.9 Gout, unspecified; F41.9 Anxiety disorder, unspecified; F32.9 Major depressive disorder, single episode, unspecified; I25.10 Atherosclerotic heart disease of native coronary artery without angina pectoris; E66.01 Morbid (severe) obesity due to excess calories; E83.42 Hypomagnesemia; K21.9 Gastro-esophageal reflux disease without esophagitis; G47.33 Obstructive sleep apnea (adult) (pediatric); M19.90 Unspecified osteoarthritis, unspecified site; Z88.6 Allergy status to analgesic agent; Z66 Do not resuscitate; I25.2 Old myocardial infarction; Z99.81 Dependence on supplemental oxygen; Z79.899 Other long term (current) drug therapy; Z86.73 Personal history of transient ischemic attack (TIA), and cerebral infarction without residual deficits; Z23 Encounter for immunization; Z90.710 Acquired absence of both cervix and uterus; Z84.1 Family history of disorders of kidney and ureter; Z80.1 Family history of malignant neoplasm of trachea, bronchus and lung
CPT/HCPCS: 36415; 71010; 71020; 78580; 80048; 80053; 80162; 81001; 82550; 82803; 82962; 83605; 83690; 83735; 83880; 84443; 84484; 85025; 85027; 85379; 85610; 85730; 87040; 90686; 93005; 93010; 94640; 94660; 94799; 96374; 99291; A9540; G8978-GP; G8979-GP; J0456; J0696; J1644; J1815; J1940; J2930; J3490; J7060; J7512; J7620; Q9969